=== PATIENT | female | born 1995 | race Caucasian/White ===

== ENCOUNTER 2017-03-31 12:38 | Emergency (ER) | payer MEDICAID ==
[~2017-03-31] VITALS: Ht 157.5 cm; Wt 86.6 kg
--- NOTE | 2017-03-31 13:09 | [facility] Report ---
History of Present Issue Date/Time Seen by Provider 03/31/17 1303 Visit Reason Pt arrived:Walked Presenting Problem:COUGH, SORE THROAT, TIRED Location if Accident: Onset of symptoms date/time:/ or onset unknown for:MEDICAL HX UNKNOWN Have you (or family members/close friends) recently traveled outside the [place]? N If Yes, where/when: Have you had exposure to infectious disease within the past month? TB? Other? Specify: Source patient, RN notes reviewed Exam Limitations no limitations Comment 21-year-old female presents today with a sore throat and coughing up green sputum. Was seen a few days ago by PCP and given a steroid and antibiotic injection but no oral antibiotics. Patient states she feels worse today than she did prior to seeing her PCP ALLERGIES Coded Allergies: PEANUT BUTTER (01/13/17) azithromycin (01/13/17) cinnamon (01/13/17) corn (01/13/17) garlic (01/13/17) onion (01/13/17) Home Medications Reported Medications Buspirone Hcl (Buspar 10MG) 10 MG PO TID History Medical History General CAD? No Angina: No SC: No Hypertension? No Hyperlipidemia? No CHF? No COPD? No Asthma? No Anemia? No Hernia? No Thyroid Problems? No Hypothyroidism? No CVA? No Seizures? No Diabetes? No UTI? No Stones? No GB Disease: Yes Nephritic Syndrome? No Asplenia? No Hepatitis? No Sickle Cell Disease? No Arthritis? No Cataracts? No Glaucoma? No MRSA? Yes TB? No Depression? Yes Cancer? No More? Yes Additional hx: LOWER BACK PAIN Immunization HX DT/Tetanus Unknown Flu Refused Pneumonia Refuses Surgical Hx Previous Surgery?Y Tonsils CHOLECYSTECTOMY WISDOM TEETH Family History Family HX Diabetes Yes CAD No Hypertension Yes Hyperlipidemia No Cancer No TB No Social History Smoking Hx Smoker: Current Every Day Smoker Tobacco: Yes Type Cigarettes Packs/day < 1 Pack Alcohol Alcohol: No Review of Systems All Other Systems Reviewed and Negative ENT see HPI, throat pain. Respiratory see HPI, cough Physical Exam Vital Signs Vital Signs Date Time Temp Pulse Resp B/P Pulse O2 O2 Flow FiO2 Ox Delivery Rate 03/31 1248 98.2 114 16 98 - WBC >12,000 or <4,000 or 10% bands? 2 or more SIRS Criteria Met? B/P: MAP: Creatinine >2.0? UA output<0.5ml/kg/hr for 2 hrs? Platelet count >100,000? Lactate >2.0mmol/1? INR >1.2 or PTT > than 60 sec? Evidence of Organ Dysfunction? Provider documented clinical suspician of infection? Sepsis Criteria Count: 1 Sepsis Risk: General Appearance normal appearance, no apparent distress Eye Exam - bilateral eye normal exam, bilateral eye PERRL, bilateral eye EOMI Ear, Nose, Throat hearing grossly normal, sinus pain/drainage, nasal congestion, pharyngeal erythema Neck normal inspection, full range of motion Respiratory Status Yes: trachea midline, chest symmetrical, non tender chest. No: respiratory distress. Lung Sounds anterior: lungs clear. posterior: lungs clear, wheezing. left: wheezing. right: lungs clear. Cardiovascular normal exam, regular rate/rhythm Peripheral Pulses Pulses normal No Gastrointestinal normal bowel sounds, non tender, soft Back normal inspection, no CVA tenderness, no vertebral tenderness Neurologic alert, normal exam, oriented x 3 Medical Decision Making LABS/Meds/Orders Pt receiving controlled substance in ED? No Departure Departure Time of Disposition 1305 Disposition DC Home or Self Care(routine) Clinical Impression Primary Impression: Acute bronchitis Qualifiers: Bronchitis organism: unspecified organism Qualified Code: J20.9 - Acute bronchitis, unspecified Condition STABLE Referrals Vipin ROY,Eder Le Patient Instructions Acute Bronchitis, DI for Acute Bronchitis Additional Instructions Follow-up with PCP if no improvement Tylenol Motrin as needed for pain or fever Medications as ordered Obtained from smoking Return or be seen in the ER symptoms worsen or do not improve Discharge Counseling Counseled pt/family regarding diagnosis, medications/RX, home care, follow up needs Prescriptions Current Visit Scripts Amoxicillin Trihydrate (Amoxicillin 500MG) 500 MG PO BID 10 Days at 1302
--- OUTSIDE RECORDS SUMMARY | 2017-04-11 18:15 | External Medical Summary Rpt ---
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 D BE 1 PH RT 50 AR B 0 MA MG CY CA 03 PS 93 UL 8 E # 03 93 TR 65 10 10 20 3 RI 90 GR Ac AM 16 -0 -0 .0 TE 24 AY ti AD 20 7- 7- 00 93 ve OL 61 20 20 AI RO -A 71 11 11 D BE CE 0 PH RT TA AR B OK MA NO CY PH N 03 37 93 .5 8 -3 # 25 03 93 MS 65 09 09 11 30 30 RI 89 FL Ac EN 16 -1 -1 .0 TE 87 OR ti AT 20 2- 3- 00 58 EN ve AL 66 20 20 AI CE [address] 0 PH SA US AR RA MA H TA CY L BL ET 03 93 8 # 03 93 MU 68 09 09 22 7 RI 89 FL Ac PI 46 -1 -1 .0 TE 87 OR ti RO 20 2- 3- 00 56 EN ve CI 18 20 20 AI CE N 02 11 11 D 2% 2 PH SA AR RA OI MA H NT CY L ME NT 03 93 8 # 03 93 TR 00 09 09 5 28 28 RI 89 FL Ac I- 55 -0 -0 .0 TE 75 OR ti SP 59 2- 2- 00 44 EN ve RI 01 20 20 AI CE NT 85 11 11 D EC 8 PH SA AR RA TA MA H BL CY L ET 03 93 8 # 03 93 NA 00 03 03 28 14 RI 87 FL Ac MS 09 -1 -1 .0 TE 43 OR ti OX 31 0- 0- 00 44 EN ve EN 00 20 20 AI CE [address] 1 PH SA AR RA 37 MA H 5 CY L MG 03 TA 93 BL 8 ET # 03 93 CY 00 03 03 14 14 RI 87 FL Ac CL 37 -1 -1 .0 TE 43 OR ti OB 80 0- 0- 00 43 EN ve EN 75 20 20 AI CE ZA 11 11 11 D MS 0 PH SA IN AR RA E MA H 10 CY L MG 03 93 TA 8 BL # ET 03 93 TR 45 01 01 1 80 20 RI 86 FL Ac IA 80 -2 -2 .0 TE 71 OR ti MC 20 0- 0- 00 49 EN ve IN 06 20 20 AI CE OL 43 11 11 D ON 6 PH SA E AR RA 0. MA H 1% CY L CR 03 EA 93 M 8 # 03 93 00 01 01 5 30 30 RI 86 FL Ac 95 -2 -2 .0 TE 71 OR ti 51 0- 0- 00 47 EN ve 02 20 20 AI CE 59 11 11 D 0 PH SA AR RA MA H CY L 03 93 8 # 03 93 MS 37 08 01 5 28 28 RI 84 BE Ac IL 00 -2 -1 .0 TE 69 SS ti OS 00 4- 7- 00 05 ON ve EC 45 20 20 AI [address] OT 3 PH EP C AR HE 20 MA N .6 CY A MG 03 93 TA 8 BL # ET 03 93 LO 00 08 01 5 30 30 RI 84 BE Ac RA 78 -2 -1 .0 TE 65 SS ti TA 15 3- 7- 00 92 ON ve DI 07 20 20 AI NE [address] 1 PH EP 10 AR HE MA N MG CY A TA 03 BL 93 ET 8 # 03 93 MS 37 08 12 5 28 28 RI 84 BE Ac IL 00 -2 -0 .0 TE 69 SS ti OS 00 4- 7- 00 05 ON ve EC 45 20 20 AI [address] OT 3 PH EP C AR HE 20 MA N .6 CY A MG 03 93 TA 8 BL # ET 03 93 LO 00 08 12 5 30 30 RI 84 BE Ac RA 78 -2 -0 .0 TE 65 SS ti TA 15 3- 7- 00 92 ON ve DI 07 20 20 AI NE [address] 1 PH EP 10 AR HE MA N MG CY A TA 03 BL 93 ET 8 # 03 93 LO 00 08 11 5 30 30 RI 84 BE Ac RA 78 -2 -0 .0 TE 65 SS ti TA 15 3- 2- 00 92 ON ve DI 07 20 20 AI NE [address] 1 PH EP 10 AR HE MA N MG CY A TA 03 BL 93 ET 8 # 03 93 00 10 10 21 7 RI 85 GA Ac 14 -1 -1 .0 TE 46 IN ti 39 8- 9- 00 28 EY ve 89 20 20 AI 80 10 10 D OK 1 PH CH AR AE MA L CY S 03 93 8 # 03 93 MS 37 08 10 5 28 28 RI 84 BE Ac IL 00 -2 -1 .0 TE 69 SS ti OS 00 4- 9- 00 05 ON ve EC 45 20 20 AI [address] OT 3 PH EP C AR HE 20 MA N .6 CY A MG 03 93 TA 8 BL # ET 03 93 MS 37 08 09 5 28 28 RI 84 BE Ac IL 00 -2 -2 .0 TE 69 SS ti OS 00 4- 0- 00 05 ON ve EC 45 20 20 AI [address] OT 3 PH EP C AR HE 20 MA N .6 CY A MG 03 93 TA 8 BL # ET 03 93 LO 00 08 09 5 30 30 RI 84 BE Ac RA 78 -2 -2 .0 TE 65 SS ti TA 15 3- 0- 00 92 ON ve DI 07 20 20 AI NE [address] 1 PH EP 10 AR HE MA N MG CY A TA 03 BL 93 ET 8 # 03 93 MS 37 08 08 5 28 28 RI 84 BE Ac IL 00 -2 -2 .0 TE 69 SS ti OS 00 4- 4- 00 05 ON ve EC 45 20 20 AI [address] OT 3 PH EP C AR HE 20 MA N .6 CY A MG 03 93 TA 8 BL # ET 03 93 LO 00 08 08 5 30 30 RI 84 BE Ac RA 78 -2 -2 .0 TE 65 SS ti TA 15 3- 3- 00 92 ON ve DI 07 20 20 AI NE [address] 1 PH EP 10 AR HE MA N MG CY A TA 03 BL 93 ET 8 # 03 93 LO 00 05 07 2 30 30 RI 83 BE Ac RA 78 -2 -2 .0 TE 58 SS ti TA 15 8- 3- 00 75 ON ve DI 07 20 20 AI NE [address] 1 PH EP 10 AR HE MA N MG CY A TA 03 BL 93 ET 8 # 03 93 LO 00 05 06 2 30 30 RI 83 BE Ac RA 78 -2 -2 .0 TE 58 SS ti TA 15 8- 3- 00 75 ON ve DI 07 20 20 AI NE [address] 1 PH EP 10 AR HE MA N MG CY A TA 03 BL 93 ET 8 # 03 93 TR 45 05 06 2 80 15 RI 83 MC Ac IA 80 -0 -1 .0 TE 29 KE ti MC 20 7- 2- 00 82 OK ve IN 06 20 20 AI E OL 43 10 10 D JR ON 6 PH E AR WI 0. MA LL 1% CY IA M CR 03 F EA 93 M 8 # 03 93 LO 00 05 05 2 30 30 RI 83 BE Ac RA 78 -2 -2 .0 TE 58 SS ti TA 15 8- 8- 00 75 ON ve DI 07 20 20 AI NE [address] 1 PH EP 10 AR HE MA N MG CY A TA 03 BL 93 ET 8 # 03 93 CE 00 05 05 20 10 RI 83 BE Ac FD 78 -2 -2 .0 TE 58 SS ti IN 12 8 8 00 73 ON ve IR 17 20 20 AI [address] 30 0 PH EP 0 AR HE MG MA N CY A CA PS 03 UL 93 E 8 # 03 93 MS 37 05 05 28 28 RI 83 BE Ac IL 00 -2 -2 .0 TE 58 SS ti OS 00 8 8 00 71 ON ve EC 45 20 20 AI [address] OT 3 PH EP C AR HE 20 MA N .6 CY A MG 03 93 TA 8 BL # ET 03 93 TR 45 05 05 2 80 15 RI 83 MC Ac IA 80 -0 -0 .0 TE 29 KE ti MC 20 7- 7- 00 82 OK ve IN 06 20 20 AI E OL 43 10 10 D JR ON 6 PH E AR WI 0. MA LL 1% CY IA M CR 03 F EA 93 M 8 # 03 93 PE 45 05 05 60 5 RI 83 MC Ac RM 80 -0 -0 .0 TE 29 KE ti ET 20 7- 7- 00 83 OK ve HR 26 20 20 AI E IN 93 10 10 D JR 7 PH 5% AR WI MA LL CR CY IA EA M M 03 F 93 8 # 03 93 LO 00 03 05 3 30 30 RI 82 BE Ac RA 78 -3 -0 .0 TE 77 SS ti TA 15 0- 7- 00 44 ON ve DI 07 20 20 AI NE [address] 1 PH EP 10 AR HE MA N MG CY A TA 03 BL 93 ET 8 # 03 93 66 04 04 12 12 RI 83 HU Ac 99 -1 -1 0. TE 04 NT ti 20 9- 9 00 68 ER ve 22 20 20 0 AI 00 10 10 D NA 4 PH NC AR Y MA C CY 03 93 8 # 03 93 AM 00 04 04 30 10 RI 83 HU Ac OX 09 -1 -1 .0 TE 04 NT ti -C 32 9- 9- 00 67 ER ve LA 27 20 20 AI V 43 10 10 D NA 50 4 PH NC 0- AR Y 12 MA C 5 CY MG 03 TA 93 BL 8 ET # 03 93 LO 00 03 03 3 30 30 RI 82 BE Ac RA 78 -3 -3 .0 TE 77 SS ti TA 15 0- 0- 00 44 ON ve DI 07 20 20 AI NE [address] 1 PH EP 10 AR HE MA N MG CY A TA 03 BL 93 ET 8 # 03 93 00 06 12 02 10 12 RI 79 CO Ac 90 -2 -3 0. TE 15 MM ti 42 9- 1- 00 39 UN ve 03 20 20 0 AI IT 55 09 09 D Y 9 PH AL AR LE M RG #3 Y 93 & 8 TH MA PS C CE 65 10 10 00 20 10 RI 80 MC Ac FU 86 -1 -2 .0 TE 43 KE ti RO 20 5- 2- 00 55 OK ve XI 03 20 20 AI E ME 42 09 09 D JR 0 PH AX AR WI ET M LL IL #3 IA 93 M 25 8 F 0 MG TA B 00 06 10 01 10 12 RI 79 CO Ac 90 -2 -0 0. TE 15 MM ti 42 9- 8- 00 39 UN ve 03 20 20 0 AI IT 55 09 09 D Y 9 PH AL AR LE M RG #3 Y 93 & 8 TH MA PS C LO 00 08 10 00 30 30 RI 79 CO Ac RA 78 -0 -0 .0 TE 45 MM ti TA 15 4- 8- 00 06 UN ve DI 07 20 20 AI IT NE 70 09 09 D Y 1 PH AL 10 AR LE M RG MG #3 Y 93 & TA 8 BL TH ET MA PS C 00 06 08 00 10 12 RI 79 CO Ac 90 -2 -1 0. TE 15 MM ti 42 9- 3- 00 39 UN ve 03 20 20 0 AI IT 55 09 09 D Y 9 PH AL AR LE M RG #3 Y 93 & 8 TH MA PS C 00 08 08 00 20 5 RI 79 LA Ac 60 -0 -1 0. TE 45 WS ti 31 6- 3- 00 95 ON ve 29 20 20 0 AI 55 [address] AR OR M G #3 93 8 LO 00 04 08 02 30 30 RI 78 CO Ac RA 78 -2 -1 .0 TE 20 MM ti TA 15 9- 3- 00 82 UN ve DI 07 20 20 AI IT NE 70 09 09 D Y 1 PH AL 10 AR LE M RG MG #3 Y 93 & TA 8 BL TH ET MA PS C 00 07 07 00 30 10 RI 79 LA Ac 14 -2 -3 .0 TE 25 WS ti 39 0- 0- 00 68 ON ve 89 20 20 AI 80 [address] AR OR M G #3 93 8 00 06 07 00 10 12 RI 78 CO Ac 90 -2 -1 0. TE 99 MM ti 42 9- 6- 00 93 UN ve 03 20 20 0 AI IT 55 09 09 D Y 9 PH AL AR LE M RG #3 Y 93 & 8 MA PS C LO 00 04 07 01 30 30 RI 78 CO Ac RA 78 -2 -0 .0 TE 20 MM ti TA 15 9- 2- 00 82 UN ve DI 07 20 20 AI IT NE 70 09 09 D Y 1 PH AL 10 AR LE M RG MG #3 Y 93 & TA 8 BL TH ET MA PS C CE 65 06 07 00 14 7 RI 78 MA Ac FP 86 -1 -0 .0 TE 86 RT ti RO 20 7- 2- 00 79 IN ve ZI 06 20 20 AI J L 80 09 09 D 25 1 PH MA 0 AR NG MG M AN #3 TA 93 MD BL 8 ET PS C 65 08 06 06 10 12 RI 74 CO Ac 16 -1 -0 0. TE 60 MM ti 20 9- 4- 00 03 UN ve 51 20 20 0 AI IT 61 08 09 D Y 0 PH AL AR LE M RG #3 Y 93 & 8 TH MA PS C LO 00 04 05 00 30 30 RI 78 CO Ac RA 78 -2 -0 .0 TE 20 MM ti TA 15 9- 7- 00 82 UN ve DI 07 20 20 AI IT NE 70 09 09 D Y 1 PH AL 10 AR LE M RG MG #3 Y 93 & TA 8 BL TH ET MA PS C 65 08 04 05 10 12 RI 74 CO Ac 16 -1 -0 0. TE 60 MM ti 20 9- 9- 00 03 UN ve 51 20 20 0 AI IT 61 08 09 D Y 0 PH AL AR LE M RG #3 Y 93 & 8 TH MA PS C MS 00 03 03 00 12 4 RI 77 MU Ac OM 60 -1 -2 0. TE 54 LL ti ET 31 5- 6- 00 04 IN ve LEAHY 58 20 20 0 AI S ZI 85 09 09 D ZAKI NE 8 PH HN AR M VC M -C #3 OD 93 EI 8 NE SY RU P 65 08 03 04 10 12 RI 74 CO Ac 16 -1 -1 0. TE 60 MM ti 20 9- 2- 00 03 UN ve 51 20 20 0 AI IT 61 08 09 D Y 0 PH AL AR LE M RG #3 Y 93 & 8 TH MA PS C LO 00 08 03 06 30 30 RI 74 CO Ac RA 78 -1 -1 .0 TE 60 MM ti TA 15 9- 2- 00 02 UN ve DI 07 20 20 AI IT NE 70 08 09 D Y 1 PH AL 10 AR LE M RG MG #3 Y 93 & TA 8 BL TH ET MA PS C 65 08 01 03 10 12 RI 74 CO Ac 16 -1 -3 0. TE 60 MM ti 20 9- 0- 00 03 UN ve 51 20 20 0 AI IT 61 08 09 D Y 0 PH AL AR LE M RG #3 Y 93 & 8 TH MA PS C LO 00 08 01 05 30 30 RI 74 CO Ac RA 78 -1 -3 .0 TE 60 MM ti TA 15 9- 0- 00 02 UN ve DI 07 20 20 AI IT NE 70 08 09 D Y 1 PH AL 10 AR LE M RG MG #3 Y 93 & TA 8 BL TH ET MA PS C CE 00 01 01 00 21 7 RI 76 GA Ac PH 09 -1 -3 .0 TE 67 IN ti AL 33 4- 0- 00 58 EY ve EX 14 20 20 AI IN 50 09 09 D OK 1 PH CH 25 AR AE 0 M L MG #3 S 93 CA 8 PS UL E LO 00 08 01 04 30 30 RI 74 CO Ac RA 78 -1 -0 .0 TE 60 MM ti TA 15 9- 1- 00 02 UN ve DI 07 20 20 AI IT NE 70 08 09 D Y 1 PH AL 10 AR LE M RG MG #3 Y 93 & TA 8 BL TH ET MA PS C LO 00 08 12 03 30 30 RI 74 CO Ac RA 78 -1 -0 .0 TE 60 MM ti TA 15 9- 4- 00 02 UN ve DI 07 20 20 AI IT NE 70 08 08 D Y 1 PH AL 10 AR LE M RG MG #3 Y 93 & TA 8 BL TH ET MA PS C 65 08 12 02 10 12 RI 74 CO Ac 16 -1 -0 0. TE 60 MM ti 20 9- 4- 00 03 UN ve 51 20 20 0 AI IT 61 08 08 D Y 0 PH AL AR LE M RG #3 Y 93 & 8 TH MA PS C 00 10 10 00 10 2 RI 75 WI Ac 40 -1 -2 .0 TE 34 CK ti 60 0- 3- 00 92 ER ve 35 20 20 AI 70 08 08 D JE 5 PH FF AR RE M Y #3 93 8 LO 00 08 10 02 30 30 RI 74 CO Ac RA 78 -1 -2 .0 TE 60 MM ti TA 15 9- 3- 00 02 UN ve DI 07 20 20 AI IT NE 70 08 08 D Y 1 PH AL 10 AR LE M RG MG #3 Y 93 & TA 8 BL TH ET MA PS C 65 08 09 01 10 12 RI 74 CO Ac 16 -1 -2 0. TE 60 MM ti 20 9- 6- 00 03 UN ve 51 20 20 0 AI IT 61 08 08 D Y 0 PH AL AR LE M RG #3 Y 93 & 8 MA PS C LO 00 08 09 01 30 30 RI 74 CO Ac RA 78 -1 -2 .0 TE 60 MM ti TA 15 9- 6- 00 02 UN ve DI 07 20 20 AI IT NE 70 08 08 D Y 1 PH AL 10 AR LE M RG MG #3 Y 93 & TA 8 BL TH ET MA PS C LO 00 08 08 00 30 30 RI 74 CO Ac RA 78 -1 -2 .0 TE 60 MM ti TA 15 9- 8- 00 02 UN ve DI 07 20 20 AI IT NE 70 08 08 D Y 1 PH AL 10 AR LE M RG MG #3 Y 93 & TA 8 BL TH ET MA PS C 65 08 08 00 10 12 RI 74 CO Ac 16 -1 -2 0. TE 60 MM ti 20 9- 8- 00 03 UN ve 51 20 20 0 AI IT 61 08 08 D Y 0 PH AL AR LE M RG #3 Y 93 & 8 MA PS C 60 02 03 00 12 5 RI 72 No Ac 25 -1 -2 0. TE 02 t ti 80 5- 6- 00 14 Av ve 23 20 20 0 AI ai 91 08 08 D la 6 PH bl AR e M #3 93 8 TA 00 02 03 00 10 5 RI 72 No Ac OK 00 -1 -2 .0 TE 02 t ti FL 40 5- 6- 00 11 Av ve U 80 20 20 AI ai 75 08 08 08 D la 5 PH bl MG AR e M CA #3 PS 93 UL 8 E Immunization Name Date Rout CVX Reac Dose Comm Prov Is Faci e tion ent ider Refu lity Give sed n MPSV 07-3 32 HARINDER No DHS/ 4 0-20 ONEYDA CO VACC 08 CO HEAL INE HEAL TH GROU TH CENT PS CENT RAL ACYW ER BANK -135 ACCT SUBQ USE Vital Signs 08-06-2013 00:51 Name Value Interpretat Reference Comment ion Range BP 75 mm[Hg] Diastolic BP Systolic 145 mm[Hg] Heart 85 /min Rate/Pulse O2% 100 % Respiratory 20 /min Rate 08-05-2013 23:52 Name Value Interpretat Reference Comment ion Range O2% 100 % Respiratory 20 /min Rate 08-05-2013 23:51 Name Value Interpretat Reference Comment ion Range BP 92 mm[Hg] Diastolic BP Systolic 149 mm[Hg] Heart 90 /min Rate/Pulse 07-28-2013 02:53 Name Value Interpretat Reference Comment ion Range BP 80 mm[Hg] Diastolic BP Systolic 120 mm[Hg] Heart 91 /min Rate/Pulse O2% 98 % Respiratory 20 /min Rate 07-28-2013 01:56 Name Value Interpretat Reference Comment ion Range BP 73 mm[Hg] Diastolic BP Systolic 132 mm[Hg] Heart 88 /min Rate/Pulse O2% 97 % Respiratory 20 /min Rate 10-05-2012 19:02 Name Value Interpretat Reference Comment ion Range Body 98.7 [degF] Temperature BP 52 mm[Hg] Diastolic BP Systolic 95 mm[Hg] Heart 99 /min Rate/Pulse O2% 98 % Respiratory 17 /min Rate 10-05-2012 19:01 Name Value Interpretat Reference Comment ion Range Body 98.7 [degF] Temperature BP 52 mm[Hg] Diastolic BP Systolic 95 mm[Hg] Heart 99 /min Rate/Pulse O2% 98 % Respiratory 17 /min Rate Results Labs Lab Lab Date Result Refere Interp Status Commen Order Detail nces retati t Range on Hemoglobin A1c in Blood (01-19-2017 09:25) Hemoglo 5.5 % 0.0% Normal complet bin A1c 017 - ed in 09:25 7.0% Blood Urinalysis dipstick W Reflex Microscopic panel in Urine (01-13-2017 00:16) Appeara CLEAR CLEAR complet nce of 017 ed Urine 00:16 Bilirub NEGATIV NEG complet in 017 E ed [Presen 00:16 ce] in Urine by Test strip Erythro NEGATIV NEG complet cytes 017 E ed [Presen 00:16 ce] in Urine Color YELLOW YELLOW complet of 017 ed Urine 00:16 Ketones NEGATIV NEG complet 017 E ed [Presen 00:16 ce] in Urine by Automat ed test strip Mucus NEGATIV NEG complet [Presen 017 E ed ce] in 00:16 Urine sedimen t by Light microsc opy Mucus 3+ OCC complet [Presen 017 ed ce] in 00:16 Urine sedimen t by Light microsc opy Nitrite NEGATIV NEG complet 017 E ed [Presen 00:16 ce] in Urine by Test strip Epithel 10-20 0#/hp complet ial 017 f - ed cells.s 00:16 5#/hp quamous f [Presen ce] in Urine sedimen t by Microsc opy high power field Urobili 0.2 NEG complet nogen 017 ed [Presen 00:16 ce] in Urine by Test strip Leukocy 10-20 O complet darlene 017 wbc/hpf ed [#/volu 00:16 me] in Urine CHLAMYDIA AND GONORRHEA TESTING (09-11-2016 10:00) Chlamyd NEGATIV complet ia 017 E ed trachom 10:00 atis rRNA [Presen ce] in Unspeci fied specime n by Probe & target amplifi cation method Neisser NEGATIV complet ia 017 E ed gonorrh 10:00 oeae rRNA [Presen ce] in Unspeci fied specime n by Probe & target amplifi cation method CHLAMYDIA AND GONORRHEA TESTING (09-11-2016 10:00) COLLECT AH/GENP complet OR 017 ROBE ed 10:00 ETHNICI WHITE, complet TY 017 NON-HIS ed 10:00 PANIC KIT 05-31-2 complet EXPIRAT 017 017 ed ION 10:00 DATE SYMPTOM NO complet S 017 ed 10:00 REASON INITIAL complet FOR 017 FAMILY ed REQUEST 10:00 PLANNIN G VISIT SPECIME URINE complet N 017 ed SOURCE 10:00 PREGNAN NO complet T 017 ed 10:00 CHART N/A complet NUMBER 017 ed 10:00 Chlamyd Pending complet ia ed trachom 10:00 atis rRNA [Presen ce] in Unspeci fied specime n by Probe & target amplifi cation method Neisser Pending complet ia 017 ed gonorrh 10:00 oeae rRNA [Presen ce] in Unspeci fied specime n by Probe & target amplifi cation method COMPREHENSIVE METABOLIC PANEL (08-05-2013 23:04) Glucose 100 74-106 complet 014 mg/dL ed Bld-mCn 23:04 c BUN 10 7-18 complet Bld-mCn 014 mg/dL ed c 23:04 Creat 0.8 0.6-1.0 complet SerPl-m 014 mg/dL ed Cnc 23:04 Creat 137 50-200 complet Cl 014 ML/MIN ed predict 23:04 ed SerPl C-G-vRa te Sodium 140 136-145 complet SerPl-s 014 mmoL/L ed Cnc 23:04 Potassi 3.6 3.5-5.1 complet um 014 mmoL/L ed SerPl-s 23:04 Cnc Chlorid 102 98-107 complet e 014 mmoL/L ed SerPl-s 23:04 Cnc CO2 29 21.0-32 complet SerPl-s 014 mmoL/L .0 ed Cnc 23:04 Calcium 9.1 8.5-10. complet 014 mg/dL 1 ed SerPl-m 23:04 Cnc Prot 8.4 6.4-8.2 complet SerPl-m 014 gm/dL ed Cnc 23:04 Albumin 02--2 4.2 3.4-5.0 complet 014 gm/dL ed SerPl-m 23:04 Cnc Globuli 02-2 4.2 1.3-3.2 complet n 014 gm/dL ed Ser-mCn 23:04 c Albumin 08-05-2 1.0 UNK 1.1-1.8 complet /Glob 014 ed SerPl-m 23:04 Rto Bilirub 08-05-2 0.3 0.2-1.0 complet 014 mg/dL ed SerPl-m 23:04 Cnc AST 02-2 17 U/L 15-37 complet SerPl-c 014 ed Cnc 23:04 ALT 08-05-2 23 U/L 12-78 complet SerPl-c 014 ed Cnc 23:04 ALP --2 124 U/L 50-136 complet SerPl-c 014 ed Cnc 23:04 CBC with AUTO DIFF (08-05-2013 23:04) WBC # 02-04-2 8.4 4.5-13. complet Bld 014 K/mm3 0 ed Auto 23:04 RBC # 02-2 4.76 4.2-5.4 complet Bld 014 M/mm3 ed Auto 23:04 Hgb 08-05-2 15.2 12.2-16 complet Bld-mCn 014 g/dL .2 ed c 23:04 Hct Fr 08-05- 45.3 % 37.0-47 complet Bld 014 .0 ed 23:04 MCV RBC 08-05-2 95.2 fL 82.2-97 complet 014 .8 ed 23:04 MCH RBC 08-05-2 31.9 pg 27-31.2 complet Qn 014 ed Auto 23:04 MEAN 08-05-2 33.6 31.8-35 complet CORPUSC 014 g/dl .4 ed ULAR 23:04 HGB CONC RDW RBC 04-2 13.7 % 11.5-17 complet Auto 014 .5 ed 23:04 Platele 08-05-2 269 142-424 complet t Bld 014 K/mm3 ed Ql 23:04 Manual Granulo 08-05- 71.4 % 37.0-80 complet cytes 014 .0 ed Fr Bld 23:04 Auto LYMPH % 08-05-2 25.4 % 10-50 complet 014 ed 23:04 Monocyt 3.2 % complet es Fr 014 ed Bld 23:04 Auto Granulo 6.0 1.8-7.8 complet cytes # 014 K/mm3 ed Bld 23:04 Auto Lymphoc 2.1 0.7-4.5 complet ytes Fr 014 K/mm3 ed Bld 23:04 Auto Monocyt 0.3 0.1-1.0 complet es # 014 K/mm3 ed Bld 23:04 Auto B-HCG SerPl Ql (08-05-2013 23:04) B-HCG NEGATIV NEG complet SerPl 014 E ed Ql 23:04 B-HCG Ur Ql (07-28-2013 01:40) B-HCG NEGATIV NEG complet Ur Ql 014 E ed 01:40 URINALYSIS/COMPLETE (07-28-2013 01:40) URINE YELLOW YELLOW complet COLOR 014 ed 01:40 URINE CLEAR CLEAR complet APPEARA 014 ed NCE 01:40 URINE NEGATIV NEG complet GLUCOSE 014 E ed - 01:40 DIPSTIC K URINE NEGATIV NEG complet BILIRUB 014 E ed IN - 01:40 DIPSTIC K URINE NEGATIV NEG complet KETONE 014 E mg/dL ed 01:40 URINE 1.020 1.005-1 complet SPECIFI 014 UNK .030 ed C 01:40 GRAVITY URINE NEGATIV NEG complet BLOOD 014 E ed 01:40 URINE 6.5 UNK 5.0-8.5 complet PH 014 ed 01:40 URINE NEGATIV NEG complet PROTEIN 014 E mg/dL ed - 01:40 DIPSTIC K URINE 0.2 NEG complet UROBILI 014 E.U./dL ed NOGEN - 01:40 DIPSTIC K URINE NEGATIV NEG complet NITRATE 014 E ed - 01:40 DIPSTIC K URINE NEGATIV NEG complet LEUK 014 E ed ESTERAS 01:40 E URINE 10-20 0-5 ranjit JACKSON 014 #/hpf ed S CELLS 01:40 Procedures Procedure DOS Code Location Performer Comment SLEEP STD 21610 RAFIIRAIDA [facility] H[facility] INC RATE&O[place] [address] [facility]YROID [facility] STIMULATI [place] [address] [facility] M[facility] THYROXINE [facility] TOTAL INC INC HEMOGLOBI 99242 [facility] N [facility] GLYCOSYLA INC INC KRISTINA A1C BLOOD 72452 [facility] COUNT [facility] COMPLETE INC INC AUTO&AUTO DIFRNTL WBC HEPATITIS 61612 [facility] B CORE [facility] [place] [address] [facility] HEPATITIS [facility] B INC INC SURFACE ANTIGEN LIPID 09412 [facility] PANEL [facility] INC INC HEPATITIS 16941 [facility] C [facility] ANTIBODY INC INC COLLECTIO 75279 [facility] M[facility] N VENOUS 7 [facility] BLOOD INC INC VENIPUNCT URE COMPREHEN 92961 [facility] SIVE [facility] METABOLIC INC INC PANEL HEPATITIS 43799 [facility] A [facility] ANTIBODY INC INC HAAB URNLS DIP 12016 [facility] STICK/TAB INC INC LET REAGENT AUTO MICROSCOP Y URINE 23915 [facility] TEST INC INC VISUAL COLOR CMPRSN METHS CULTURE 82639 [facility] BACTERIAL [facility] INC INC QUANTTATI VE COLONY COUNT URINE IAADIADOO 22752 CORINE [facility] 7 N URGENT STREPTOCO CARE CCUS GROUP A URINE [id number] [facility] VISUAL DIGNA DIGNA COLOR CMPRSN METHS INJECTION J1050 [facility] DE[facility] DEPT OGESTERON DIGNA DIGNA E ACETATE 1 MG CONTRACEP [id number] [facility] SUPPLY [facility] DE[facility] DEPT CONDOM DIGNA DIGNA MALE EACH CONTRACEP A4269 [facility] SU[facility] DEPT SPERMICID DIGNA DIGNA E EACH OPHTH 34645 SCIFRES SCIFRES MEDICAL 7 XM&EVAL COMPRHNSV ESTAB PT 1/> FITTING [id number] SCIFRES SCIFRES SPECTACLE 7 S XCPT APHAKIA MONOFOCAL 1 VISN V2103 SCIFRES SCIFRES PLANO 7 TO+/-4.00 D SPHER 0.12-2.00 D CYL EA SCRATCH V2760 SCIFRES SCIFRES RESISTANT 7 COATING PER LENS FRAMES V2020 SCIFRES SCIFRES PURCHASES 7 LENS V2784 SCIFRES SCIFRES POLYCARBO 7 MIREYA OR EQUAL ANY INDEX PER LENS URINE 07241 [facility] 6 PHYSICIAN TEST S GROUP VISUAL COLOR CMPRSN METHS THERAPEUT 16335 [facility] IC 6 PHYSICIAN PROPHYLAC S GROUP TIC/DX INJECTION SUBQ/IM URINE 83099 [facility] 6 N N TEST COMMUNTIY COMMUNTIY VISUAL HOSPITA HOSPITA COLOR CMPRSN METHS COMPREHEN 48939 [facility] SIVE 6 N N METABOLIC COMMUNTIY COMMUNTIY PANEL HOSPITA HOSPITA BLOOD 96950 [facility] COUNT 6 N N COMPLETE COMMUNTIY COMMUNTIY AUTO&AUTO HOSPITA HOSPITA DIFRNTL WBC IAADIADOO 46914 [facility] MELONIE 6 N URGENT ABD STREPTOCO CARE CCUS GROUP A IAADIADOO 58621 [facility] 6 N N STREPTOCO COMMUNTIY COMMUNTIY CCUS HOSPITA HOSPITA GROUP A CUL BACT 58414 [facility] XCPT 6 N N URINE COMMUNTIY COMMUNTIY BLOOD/STO HOSPITA HOSPITA OL AEROBIC ISOL MRI 07105 [facility] CANAL ORTHOPAED LUMBAR ICS PSC W/[place] [address] [facility] HEAD/BRAI 6 N N N W/O COMMUNTIY COMMUNTIY CONTRAST HOSPITA HOSPITA MATERIAL GLUC BLD 47819 [facility] GLUC MNTR 6 N N DEV COMMUNTIY COMMUNTIY CLEARED HOSPITA HOSPITA FDA SPEC HOME USE ECG 19291 [facility] ROUTINE 6 N N ECG COMMUNTIY COMMUNTIY W/LEAST HOSPITA HOSPITA 12 LDS TRCG ONLY W/O I&R RADEX 80297 [facility] [place] [facility] SPINE 6 RADIOLOGY LUMBOSACR AL 2/3 VIEWS URINE 51776 [facility] 6 N N TEST COMMUNTIY COMMUNTIY VISUAL HOSPITA HOSPITA COLOR CMPRSN METHS INJECTION J1885 [facility] 6 N N KETOROLAC COMMUNTIY COMMUNTIY HOSPITA HOSPITA TROMETHAM INE PER 15 MG URNLS DIP 52501 [facility] 6 N N STICK/TAB COMMUNTIY COMMUNTIY LET HOSPITA HOSPITA REAGENT AUTO MICROSCOP Y THERAPEUT 17212 [facility] IC 6 N N PROPHYLAC COMMUNTIY COMMUNTIY TIC/DX HOSPITA HOSPITA INJECTION SUBQ/IM URNLS DIP 27827 [facility] 6 N N STICK/TAB COMMUNTIY COMMUNTIY LET HOSPITA HOSPITA REAGENT AUTO MICROSCOP Y URINE 65772 [facility] 6 N N TEST COMMUNTIY COMMUNTIY VISUAL HOSPITA HOSPITA COLOR CMPRSN METHS THERAPEUT 02622 [facility] IC 5 PHYSICIAN FEDER[place] PROPHYLAC S GROUP TIC/DX INJECTION SUBQ/IM DELIVERY [id number] RAFI MCKEE PRODUCTS 5 [facility] INC INC CONCEPTIO N EXTERNAL NEURAXIAL 95975 [facility] 5 ANESTH PHOEBE ANALG/ANE OF THE S PLND BLUE VAGINAL DELIVERY VAGINAL 79567 RUSS RAMIREZ DELIVERY 5 ASHLEY ROY ROBBIN ONLY W/POSTPAR GREGORIO CARE 39286 RUSS RAMIREZ NONSTRESS 5 ASHLEY ROY ROBBIN TEST PARTICLE 35485 [facility] AGGLUTINA 5 [facility] TION INC INC SCREEN EACH ANTIBODY 10440 [facility] BIOPHYSIC 5 PHYSICIAN FEDERICO AL S GROUP PROFILE W/O NON-STRES S TESTING US PREG 77845 [facility] ANDRADE UTERUS 5 PHYSICIAN FEDERICO REAL TIME S GROUP F/U TRNSABDL PER FETUS DOPPLER 87148 [facility] LUPE VELOCIMET 5 PHYSICIAN FEDERICO RY S GROUP UMBILICAL ARTERY 76678 [facility] NONSTRESS 5 [facility] TEST INC INC URNLS DIP 91473 [facility] M[facility]EE [facility] STICK/TAB INC INC LET REAGENT AUTO MICROSCOP Y URNLS DIP 11377 [facility] M[facility]EE 5 [facility] STICK/TAB INC INC LET REAGENT AUTO MICROSCOP Y 05970 [facility] M[facility] NONSTRESS 5 [facility] TEST INC INC FTL 93906 [facility] M[facility] FIBRONECT 5 [facility] IN INC INC CERVICOVA G SECRETION S SEMI-MARITZA 38606 [facility] LUPE NONSTRESS 5 PHYSICIAN FEDERICO TEST S GROUP GLUCOSE 64345 [facility] POST 5 PHYSICIAN PHYSICIAN GLUCOSE S GROUP S GROUP DOSE 08576 RUSS RAMIREZ NONSTRESS 5 ASHLEY ROY ROBBIN TEST EVAL C/V 88734 [facility] AMNIOTIC 5 [facility] FLUID INC INC PROTEIN QUAL EA SPECIMEN URNLS DIP 37207 [facility] M[facility]EE 5 [facility] STICK/TAB INC INC LET REAGENT AUTO MICROSCOP Y URNLS DIP 18046 [facility] M[facility]EE 5 [facility] STICK/TAB INC INC LET REAGENT AUTO MICROSCOP Y 96065 RUSS RAMIREZ NONSTRESS 5 ASHLEY ROY ROBBIN TEST GLUC BLD 36881 [facility] M[facility]EE GLUC MNTR 5 [facility] DEV INC INC CLEARED FDA SPEC HOME USE US PREG 48612 [facility] UTERUS 5 MEDICAL TITUS AFTER 1ST IMAGING TRIMEST ASS GESTATION COLLECTIO 46901 RAFI RAFI N VENOUS 5 [facility] [place] [address] RAFI CMKEE ESTRIOL 5 [facility] INC INC ALPHA-FET 50096 [facility] M[facility] OPROTEIN 5 [facility] SERUM INC INC GONADOTRO 77161 [facility] M[facility] PIN 5 [facility] CHORIONIC INC INC QUANTITAT DIAMOND RADIOLOGI 35548 [place] BE[place] C 5 MEDICAL ARMOND EXAMINATI IMAGING ON CHEST ASS SINGLE VIEW FRONTAL CULTURE 96098 COMBINED COMBINED BACTERIAL 5 PHYSICIAN PHYSICIAN S LA S LA QUANTTATI VE COLONY COUNT UR[place] PREG 16693 [facility] ANDRADE UTERUS 5 PHYSICIAN FEDERICO REAL TIME S GROUP W/IMAGE DCMTN TRANSVAG IAADI 80247 [facility] INFFLUENZ 5 [facility] A A VIRUS INC INC IAADI 90232 RA[facility] MCKEE INFLUENZA 5 [facility] B VIRUS INC INC CUL BACT 38667 [facility] XCPT 5 [facility] URINE INC INC BLOOD/[place] [address] [facility] M[facility]EE STREPTOCO 5 [facility] CCUS INC INC GROUP A COLLECTIO 49720 [facility] MCKEE N VENOUS 5 [facility] [place] [address] RAFI MCKEE INSULIN 5 [facility] [place] [address] RAFI MCKEE C-PEPTIDE 5 [facility] INC INC CORTISOL 60679 [facility]CKEE TOTAL 5 [facility] INC INC BLOOD 45610 [facility] M[facility] COUNT 5 [facility] COMPLETE INC INC AUTO&AUTO DIFRNTL WBC CYANOCOBA 84352 [facility] M[facility]EE SUELLEN 5 [facility] VITAMIN [place] B-12 [place] [address] RAFI RAFI FREE 5 [facility] [place] [address] RAFI MCKEE THYROID 5 [facility] STIMULATI INC INC NG HORMONE TSH HEMOGLOBI 33997 [facility] MCKEE N 5 [facility] GLYCOSYLA INC INC KRISTINA A1C COLLECTIO 15351 [facility] M[facility]EE N VENOUS 5 [facility] BLOOD INC INC VENIPUNCT URE LIPID 62378 RAFI RAFI PANEL 5 [facility] INC INC COMPREHEN 07449 [facility] M[facility] SIVE 5 [facility] METABOLIC INC INC PANEL SPHERE V2100 YOGHASSAN YO CHRISTIN SINGLE 5 VISION PLANO +/- 4.00 PER LENS LENS V2784 [facility] POLYCARBO 5 MIREYA OR EQUAL ANY INDEX PER LENS FRAMES V2020 YOGHASSAN YO CHRISTIN PURCHASES 5 SCRATCH V2760 [facility] CH[facility]ST[facility] RESISTANT 5 COATING PER LENS FITTING 65035 [facility] SPECTACLE 5 S XCPT APHAKIA MONOFOCAL OPHTH 42022 [facility] MEDICAL 5 XM&EVAL COMPRHNSV ESTAB PT 1/> IAADIADOO 46090 [facility] 4 [facility] INFLUENZA INTERNAL MED IAADIADOO 72636 [facility] 4 [facility] STREPTOCO INTERNAL CCUS MED GROUP A IAADIADOO 33466 [facility] LEGER 4 [facility] STREPTOCO INTERNAL CCUS MED GROUP A FLUORESCE 82372 [facility] NT 4 [facility] NONNFCT INC INC AGT ANTB TITER EA ANTIBODY C-REACTIV 27981 RAFI MCKEE E PROTEIN 4 [place] [address] RAFI MCKEE THYROID 4 [facility] STIMULATI INC INC NG HORMONE TSH GONADOTRO 53456 [facility] M[facility] PIN 4 [facility] CHORIONIC INC INC QUALITATI VE THERAPEUT 86402 RAFI MCKEE IC PX 1/> 4 [facility] AREAS INC INC EACH 15 MIN EXERCISES IADNA NOS 02781 [facility] KOENIGON 4 [facility] AMPLIFIED INC INC PROBE TQ EACH ORGANISM INF AGENT 79067 [facility] M[facility] DET 4 [facility] NUCLEIC INC INC ACID CLOSTRIDI UM AMP PROBE THERAPEUT 32065 RAFI RAFI IC PX 1/> 4 [facility] AREAS INC INC EACH 15 MIN EXERCISES INF AGENT 06443 RAFIIRAIDA KOENIGON DET 4 [facility] NUCLEIC INC INC ACID CLOSTRIDI UM AMP PROBE IADNA NOS 82589 [facility] MCKEE 4 [facility] AMPLIFIED INC INC PROBE TQ EACH ORGANISM SMR PRIM 80381 RAFIIRAIDA MCKEE SRC 4 [facility] GRAM/GIEM INC INC SA STAIN BCT FUNGI/FREEDOM L BLOOD 24429 [facility] OCCULT 4 [facility] PEROXIDAS INC INC E ACTV QUAL FECES 1-3 SPEC APPL 40717 [facility] MODALITY 4 [facility] 1/> AREAS INC INC ELEC STIMJ UNATTENDE D THERAPEUT 62723 RAFI MCKEE IC PX 1/> 4 [facility] AREAS INC INC EACH 15 MIN EXERCISES APPLICATI 11537 [facility] ON 4 [facility] MODALITY INC INC 1/> AREAS HOT/COLD PACKS APPL 81373 [facility] M[facility]EE MODALITY 4 [facility] 1/> AREAS INC INC ULTRASOUN D EA 15 MIN APPL 69469 [facility]FI MCKEE MODALITY 4 [facility] 1/> AREAS INC INC ULTRASOUN D EA 15 MIN THERAPEUT 77641 RAFI MCKEE IC PX 1/> 4 [facility] AREAS INC INC EACH 15 MIN EXERCISES APPL 30298 [facility] MCKEE MODALITY 4 [facility] 1/> AREAS INC INC ELEC STIMJ UNATTENDE D APPLICATI 80070 [facility] M[facility] ON 4 [facility] MODALITY INC INC 1/> AREAS HOT/COLD PACKS MANUAL 82565 [facility] THERAPY 4 [facility] TQS 1/> INC INC REGIONS EACH 15 MINUTES MANUAL 75375 [facility]EE THERAPY 4 [facility] TQS 1/> INC INC REGIONS EACH 15 MINUTES APPLICATI 87599 RFAI MCKEE ON 4 [facility] MODALITY INC INC 1/> AREAS HOT/COLD PACKS THERAPEUT 62058 RAFI MCKEE IC PX 1/> 4 [facility] AREAS INC INC EACH 15 MIN EXERCISES APPL 70498 RAFI KOENIGON MODALITY 4 [facility] 1/> AREAS INC INC ELEC STIMJ UNATTENDE D APPL 71482 [facility]FI MCKEE MODALITY 4 [facility] 1/> AREAS INC INC ULTRASOUN D EA 15 MIN PHYSICAL 25318 [facility] M[facility] THERAPY 4 [facility] EVALUATIO INC INC N RADEX 78911 [place] KIMINE D SPINE 4 MEDICAL THORACIC IMAGING 3 VIEWS ASS RADEX 33778 [place] HANNA SPINE 4 MEDICAL TITUS LUMBOSACR IMAGING AL ASS MINIMUM 4 VIEWS CRTCHS E0114 [employer] BREG INC. UNDARM 4 OTH THAN WOOD PAIR PAD TIP&HNDGR IP RADIOLOGI 75477 [place] HANNA C 4 MEDICAL TITUS EXAMINATI IMAGING ON ANKLE ASS 2 VIEWS BLOOD 10707 [facility] COUNT 4 [facility] COMPLETE INC INC AUTO&[place] [address] [facility]FI [facility]EE TROPONIN 4 [facility] QUANTITAT INC INC DIAMOND CREATINE 38286 [facility] MCKEE KINASE 4 [place] [address] RAFI MCKEE MAXILLOFA 4 [facility] CIAL W/O INC INC CONTRAST MATERIAL CREATINE 81031 RAFI MCKEE KINASE MB 4 [facility] [place] [address] RAFI MCKEE HEAD/BRAI 4 [facility] N W/O INC INC CONTRAST MATERIAL URINE 00261 [facility] MCKEE 4 [facility] TEST INC INC VISUAL COLOR CMPRSN METHS URNLS DIP 21086 [facility] M[facility]EE 4 [facility] STICK/TAB INC INC LET REAGENT AUTO MICROSCOP Y COMPREHEN 74588 [facility] M[facility] SIVE 4 [facility] [place] [address] [facility]ADE TRANSVAGI 4 FEDERICO FEDERICO NAL OPHTH 59412 SANAZ WALLER MEDICAL 4 XM&EVAL COMPRHNSV ESTAB PT 1/> FITTING 66151 SANA[facility] WALLER SPECTACLE 4 S XCPT APHAKIA MONOFOCAL SPHERE V2100 SANAZ WALLER SINGLE 4 VISION PLANO +/- 4.00 PER LENS FRAMES V2020 SANAZ WALLER PURCHASES 4 SCRATCH V2760 SANA[facility] WALLER RESISTANT 4 COATING PER LENS LENS V2784 SANA[facility] WALLER POLYCARBO 4 [place]RE[place] IN[place] [address] [facility] M[facility]EE INFUSION 4 [facility] THERAPY/P INC INC ROPHYLAXI S /DX 1ST TO 1 HR THERAPEUT 34437 [facility] M[facility] IC 4 [facility] INJECTION INC INC IV PUSH EACH NEW DRUG COMPREHEN 17595 [facility] SIVE 4 [facility] METABOLIC INC INC PANEL BLOOD 56024 [facility] M[facility]EE COUNT 4 [facility] COMPLETE INC INC AUTO&AUTO DIFRNTL WBC GONADOTRO 47914 [facility] M[facility]EE PIN 4 [facility] CHORIONIC INC INC QUALITATI VE AMB A0427 [facility] SERVICE 4 AMBULANCE AMBULANCE ALS SERVICE SERVICE EMERGENCY TRANSPORT LEVEL 1 GROUND A0425 [facility] MILEAGE 4 AMBULANCE [place]UL[place] [address] RAFI MCKEE TRANSVAGI 4 [facility] NAL INC INC GONADOTRO 46571 RA[facility] M[facility]EE PIN 4 [facility] CHORIONIC INC INC QUANTITAT DIAMOND BLOOD 70966 [facility]FI MCKEE COUNT 4 [facility] COMPLETE INC INC AUTO&AUTO DIFRNTL WBC COMPREHEN 02115 [facility] M[facility]EE SIVE 4 [facility] METABOLIC INC INC PANEL URNLS DIP 48851 [facility] MCKEE 4 [facility] STICK/TAB INC INC LET REAGENT AUTO MICROSCOP Y URINE 43675 [facility] MCKEE 4 [facility] TEST INC INC VISUAL COLOR CMPRSN METHS URINE 39630 [facility] MCKEE 3 [facility] TEST INC INC [place] [address] RAPP RAPP SURG 3 HENRY HENRY PATHOLOGY GROSS&BRANDEN ROSCOPIC EXAM COLONOSCO 52070 [facility] M[facility] PY 3 [facility] W/BIOPSY INC INC SINGLE/MU LTIPLE APPL 89707 DASHAWN SIERRA DASHAWN SIERRA MODALITY 3 1/> AREAS TRACTION MECHANICA L CHIROPRAC 14524 DASHAWN SIERRA DASHAWN SIERRA TIC 3 MANIPULAT DIAMOND [place] SPINAL 3-4 REGIONS THERAPEUT 12284 DASHAWN SIERRA DASHAWN SIERRA IC PX 1/> 3 AREAS EACH 15 MIN EXERCISES APPL 05872 DASHAWN SIERRA DASHAWN SIERRA MODALITY 3 1/> AREAS ELEC STIMJ UNATTENDE D APPL 31046 DASHAWN SIERRA DASHAWN SIERRA MODALITY 3 1/> AREAS TRACTION MECHANICA L THERAPEUT 10040 DASHAWN SIERRA DASHAWN SIERRA IC PX 1/> 3 AREAS EACH 15 MIN EXERCISES CHIROPRAC 85282 DASHAWN SIERRA DASHAWN SIERRA TIC 3 MANIPULAT DIAMOND [place] SPINAL 3-4 REGIONS APPL 68970 DASHAWN SIERRA DASHAWN SIERRA MODALITY 3 1/> AREAS TRACTION MECHANICA L CHIROPRAC 20059 DASHAWN SIERRA DASHAWN SIERRA TIC 3 MANIPULAT DIAMOND [place] SPINAL 3-4 REGIONS THERAPEUT 29036 DASHAWN SIERRA DASHAWN SIERRA IC PX 1/> 3 AREAS EACH 15 MIN EXERCISES APPL 59419 DASHAWN SIERRA DASHAWN SIERRA MODALITY 3 1/> AREAS ELEC STIMJ UNATTENDE D RADEX 16165 DASHAWN SIERRA DASHAWN SIERRA SPINE 3 CERVICAL 2 OR 3 VIEWS CUL BACT 65587 [facility] M[facility]EE STOOL 3 [facility] AEROBIC INC INC ISOL SALMONELL A&[place] [address] RAFI MCKEE CLOSTRIDI 3 [facility] UM INC INC DIFFICILE TOXIN SMR PRIM 15213 [facility] M[facility]EE SRC 3 [facility] GRAM/GIEM INC INC SA STAIN BCT FUNGI/FREEDOM L FRAMES V2020 SCIFRES SCIFRES PURCHASES 3 ANG ANG 1 VISN V2103 SCIFRES SCIFRES PLANO 3 ANG ANG TO+/-4.00 D SPHER 0.12-2.00 D CYL EA LENS V2784 SCIFRES SCIFRES POLYCARBO 3 ANG ANG MIREYA OR EQUAL ANY INDEX PER LENS VISION V2799 SCIFRES SCIFRES ITEM OR 3 ANG ANG SERVICE MISCELLAN EOUS 1 VISN V2104 SCIFRES SCIFRES PLANO-+/- 3 ANG ANG 4.00D SPHER 2.12-4.00 D CYL EA DETERMINA 54161 SCIFRES SCIFRES TION 3 ANG ANG REFRACTIV E STATE OPHTH 90865 SCIFRES SCIFRES MEDICAL 3 ANG ANG XM&EVAL COMPRHNSV ESTAB PT 1/> CUL BACT 30294 COMBINED COMBINED XCPT 3 PHYSICIAN PHYSICIAN URINE S LA S LA BLOOD/STO OL AEROBIC ISOL URNLS DIP 14018 BERE BERE 3 NIRANJAN NIRANJAN STICK/TAB LET RGNT [place] [address] [facility] TRANSVA 2 MEDICAL TITUS NAL IMAGING ASS GONADOTRO 02163 RFAI MCKEE PIN 2 [facility] CHORIONIC INC INC QUANTITAT DIAMOND IAADIADOO 75713 IVETSON BESSON 2 CINDY CINDY STREPTOCO CCUS GROUP A URNLS DIP 00784 [facility] MCKEE 2 [facility] STICK/TAB INC INC LET REAGENT AUTO MICROSCOP Y COMPREHEN 11886 [facility] M[facility]EE SIVE 2 [facility] METABOLIC INC INC PANEL URINE 90910 [facility] MCKEE 2 [facility] TEST INC [place] [address] RAFI MCKEE ABDOMEN & 2 [facility] PELVIS INC INC W/O CONTRAST MATERIAL BLOOD 67247 RAFI MCKEE COUNT 2 [facility] COMPLETE INC INC AUTO&AUTO DIFRNTL WBC CULTURE 99299 COMBINED COMBINED BACTERIAL 2 PHYSICIAN PHYSICIAN S LA S LA QUANTTATI VE COLONY COUNT URINE SUSCEPTIB 10157 COMBINED COMBINED ILITY 2 PHYSICIAN PHYSICIAN STUDY S LA S LA ANTIMICRO BIAL DISK METHOD URNLS DIP 83782 LUPE ANDRADE 2 FEDERICO FEDERICO STICK/TAB LET RGNT NON-AUTO W/[place] [address] RAFI MCKEE THYROXINE 2 [facility] TOTAL INC INC THYROID 04114 RAFI MCKEE HORM 2 [facility] UPTK/THYR INC INC [place] [address] RAFI MCKEE THYROID 2 [facility] STIMULATI INC INC NG HORMONE TSH INTRACUTA 11333 HOOD HOOD NEOUS 2 LIZZETTE LIZZETTE TESTS W/ALLERGE JOY EXTRACTS BRNCDILAT 84306 HOOD HOOD RSPSE 2 LIZZETTE LIZZETTE SPMTRY PRE&POST- BRNCDILAT ADMN PERCUTANE 90292 HOOD HOOD OUS TESTS 2 LIZZETTE LIZZETTE W/ALLERGE JOY EXTRACTS INSERTION 52191 LUPE ANDRADE 2 FEDERICO FEDERICO INTRAUTER INE DEVICE IUD URINE 06739 LUPE ANDRADE 2 FEDERICO FEDERICO TEST VISUAL COLOR CMPRSN METHS HEPATIC 27364 RAFI MCKEE FUNCTION 2 [facility] PANEL INC INC CYTP C/V 54315 PATHOLOGY PICKLESIM AUTO THIN 2 & ER JR TONY LYR CYTOLOGY PREPJ SCR LAB MNL RESCR [facility] 20445 MCKEMIE MCKEMIE DISCHARGE 2 JR LUZ JR LUZ DAY MANAGEMEN T 30 MIN/< ANES 64629 [facility] INTRAPERI 2 ANESTH ANESTH TONEAL OF THE OF THE UPPER BLUE BLUE ABDOMEN W/LAPS NOS INITIAL 28807 HARDIK ANT HARDIK ANT INPATIENT 2 CONSULT NEW/ESTAB PT 80 MIN SBSQ 56586 [facility] 2 CINDY CINDY CARE/DAY 25 MINUTES LAPS SURG 13347 ALLRAN JR ALLRAN JR 2 PABLO PABLO CHOLECYST ECTOMY W/CHOLANG IOGRAPHY CHOLANGIO 99023 [facility] FERREIRA GRAPHY&/P 2 MEDICAL TITUS ANCREATOG IMAGING QUAN ASS NTRAOP RS&I LEVEL III 26872 PATHOLOGY JOSEPH SURG 2 & BRI PATHOLOGY CYTOLOGY LAB GROSS&[place] [address] [facility] FERREIRA ABDOMINAL 2 MEDICAL TITUS REAL IMAGING TIME ASS W/IMAGE LIMITED INITIAL 68580 [facility] 2 CINDY CINDY CARE/DAY 50 MINUTES LAPAROSCO 5123 RAFI MCKEE PIC 2 [facility] CHOLECYST INC INC ECTOMY INTRAOPER 8753 RAFI MCKEE ATIVE 2 [facility] CHOLANGIO INC INC GRAM ECG 32798 RADHA GARCIA JR ROUTINE 2 DWI DWI ECG W/LEAST 12 LDS I&R ONLY RADIOLOGI 32631 [place] HANNA C EXAM 2 MEDICAL TITUS CHEST 2 IMAGING VIEWS ASS FRONTAL&L ATERAL RADIOLOGI 21944 [place] HANNA C 2 MEDICAL TITUS EXAMINATI IMAGING ON CHEST ASS SINGLE VIEW FRONTAL URNLS DIP 92866 LUPE ANDRADE 2 FEDERICO FEDERICO STICK/TAB LET RGNT NON-AUTO W/O MICRSCP COMPREHEN 06042 [facility]EE SIVE 2 [facility] METABOLIC INC INC PANEL URNLS DIP 15614 [facility] MCKEE 2 [facility] STICK/TAB INC INC LET REAGENT AUTO MICROSCOP Y BLOOD 87489 [facility] MCKEE COUNT 2 [facility] COMPLETE INC INC AUTO&[place] [address] RAFI MCKEE INFUSION 2 [facility] HYDRATION INC INC INITIAL 31 MIN-1 HOUR URNLS DIP 71153 [facility] MCKEE 2 [facility] STICK/TAB INC INC LET REAGENT AUTO MICROSCOP Y CULTURE 90558 [facility] M[facility]EE BACTERIAL 2 [facility] INC INC QUANTTATI VE COLONY COUNT URINE CULTURE 16190 [facility] M[facility]EE BCT 2 [facility] ISOL&PRSM INC INC PTV ID ISOLATE EA URINE SUSCEPTIB 77770 [facility] M[facility]EE ILITY 2 [facility] STUDY INC INC ANTIMICRO BIAL DISK METHOD NEURAXIAL 26973 [facility] 2 ANESTH PHOEBE ANALG/ANE OF THE S PLND BLUE VAGINAL DELIVERY VAGINAL 03501 LUPE ANDRADE DELIVERY 2 FEDERICO FEDERICO ONLY W/POSTPAR GREGORIO CARE REPAIR OF 7569 RAFI MCKEE OTHER 2 [facility] CURRENT INC INC OBSTETRIC LACERATIO N URNLS DIP 04780 [facility] MCKEE 2 [facility] STICK/TAB INC INC LET REAGENT AUTO MICROSCOP Y 85521 [facility] ANDRADE NONSTRESS 2 FEDERICO FEDERICO TEST URNLS DIP 80570 [facility] MCKEE 2 [facility] STICK/TAB INC INC LET REAGENT AUTO MICROSCOP Y CULTURE 79857 RAFI MCKEE BACTERIAL 2 [facility] INC INC QUANTTATI VE COLONY COUNT URINE BLOOD 88820 [facility] MCKEE COUNT 2 [facility] COMPLETE INC INC AUTO&AUTO DIFRNTL WBC 97670 RA[facility] M[facility]EE NONSTRESS 2 [facility] TEST INC INC CUL BACT 31006 COMBINED COMBINED XCPT 2 PHYSICIAN PHYSICIAN URINE S LA S LA BLOOD/STO OL AEROBIC ISOL US PREG 44971 [facility] UTERUS 2 FEDERICO FEDERICO REAL TIME F/U TRNSABDL PER FETUS 40228 LU[facility] ANDRADE BIOPHYSIC 2 FEDERICO FEDERICO AL PROFILE W/O NON-STRES S TESTING DOPPLER 65247 [facility] ANDRADE VELOCIMET 2 FEDERICO FEDERICO RY UMBILICAL ARTERY 66413 [facility] M[facility]EE NONSTRESS 2 [facility] TEST INC INC FTL 09145 RAFI MCKEE FIBRONECT 2 [facility] IN INC INC CERVICOVA G SECRETION S SEMI-MARITZA URNLS DIP 76349 RAFI MCKEE 2 [facility] STICK/TAB INC INC LET REAGENT AUTO MICROSCOP Y URNLS DIP 64214 RAFI RAFI 2 [facility] STICK/TAB INC INC LET RGNT NON-AUTO W/O MICRSCP GLUCOSE 25664 RAFI MCKEE TOLERANCE 2 [facility] EA ADDL INC INC BEYOND 3 SPECIMENS GLUCOSE 51398 RAFI MCKEE TOLERANCE 2 [facility] TEST GTT INC INC 3 SPECIMENS GLUCOSE 66389 LUPE ANDRADE TOLERANCE 2 FEDERICO FEDERICO TEST GTT 3 SPECIMENS OPHTH 12366 SANAZ WALLER MEDICAL 2 XM&EVAL COMPRHNSV ESTAB PT 1/> DETERMINA 01955 SANAZ WALLER TION 2 REFRACTIV E STATE FITTING 52579 SANAZ WALLER SPECTACLE 2 S XCPT APHAKIA MONOFOCAL 1 VISN V2104 SANAZ WALLER PLANO-+/- 2 4.00D SPHER 2.12-4.00 D CYL EA FRAMES V2020 SANAZ WALLER PURCHASES 2 1 VISN V2103 SANAZ WALLER PLANO 2 TO+/-4.00 D SPHER 0.12-2.00 [place] [address] [facility] M[facility]EE NONSTRESS 2 [facility] TEST INC INC OBSERVATI 41871 ASHLEY FREEMANL ON/INPATI 2 [facility] 55 MINUTES CUL BACT 96778 COMBINED COMBINED XCPT 1 PHYSICIAN PHYSICIAN URINE S LA S LA BLOOD/STO OL AEROBIC ISOL 99423 RAFI MCKEE NONSTRESS 1 [facility] TEST INC INC OBSERVATI 67274 RUSS FREEMANL ON/INPATI 1 ASHLEY ROY [facility] C[facility] 55 MINUTES EVAL C/V 02468 RAFI M[facility]EE AMNIOTIC 1 [facility] FLUID INC INC PROTEIN QUAL EA SPECIMEN US PREG 56595 [facility] UTERUS 1 [facility] AFTER [facility] [place] [address] RAFI MCKEE STREPTOCO 1 [facility] CCUS INC INC GROUP A IAADI 34617 RAFI MCKEE INFLUENZA 1 [facility] B VIRUS INC INC IAADI 44495 RAFI MCKEE INFFLUENZ 1 [facility] A A VIRUS INC INC URNLS DIP 70278 [facility] MCKEE 1 [facility] STICK/TAB INC INC LET REAGENT AUTO MICROSCOP Y ALPHA-FET 49889 RAFI MCKEE OPROTEIN 1 [facility] [place] [address] RAFI MCKEE ESTRIOL 1 [facility] INC INC GONADOTRO 10519 RAFI MCKEE PIN 1 [facility] CHORIONIC INC INC QUANTITAT DIAMOND URNLS DIP 97468 RAFI MCKEE 1 [facility] STICK/TAB INC INC LET REAGENT AUTO MICROSCOP Y URINE 99065 [facility] MCKEE 1 [facility] TEST INC INC VISUAL COLOR CMPRSN METHS EXCISION 06872 JOSEPH HIGGINS ROSE NAIL 1 EMERGENCY [facility] PERMANENT REMOVAL REMOVAL 8623 RAFI MCKEE OF NAIL 1 [facility] NAILBED INC INC OR NAIL FOLD US PREG 25469 WOMEN'S ANDRADE UTERUS 1 [facility] REAL TIME CLINIC OF W/IMAGE HECTOR DCMTN TRANSVAG CYTP C/V 41743 PATHOLOGY PATHOLOGY AUTO THIN 1 & & LYR CYTOLOGY CYTOLOGY PREPJ SCR LAB LAB MNL RESCR PHYS MOLEC 91881 MOLECULAR MOLECULAR ISOL/XTRJ 1 HP PATHOLOGY PATHOLOGY NUCLEIC LAB NETW LAB NETW ACID EA TYPE MOLECULAR 71994 MOLECULAR MOLECULAR DX AMP 1 TARGET PATHOLOGY PATHOLOGY MULTIPLEX LAB NETW LAB NETW EA ADDL SEQ MOLEC 41099 MOLECULAR MOLECULAR SEP&ID HI 1 RESOLU PATHOLOGY PATHOLOGY TQ EACH LAB NETW LAB NETW NUCLEIC ACID PREP MOLECULAR 84000 MOLECULAR MOLECULAR DX AMP 1 TARGET PATHOLOGY PATHOLOGY MULTIPLEX LAB NETW LAB NETW 1ST 2 SEQ MOLECULAR 68536 MOLECULAR MOLECULAR 1 DIAGNOSTI PATHOLOGY PATHOLOGY CS LAB NETW LAB NETW INTERPRET ATION & REPORT MUTATION 79505 MOLECULAR MOLECULAR ID 1 ENZYMATIC PATHOLOGY PATHOLOGY LAB NETW LAB NETW LIG/PRIME R XTN 1 SGM EA IADNA 05967 PATHOLOGY PATHOLOGY CHLAMYDIA 1 & & CYTOLOGY CYTOLOGY TRACHOMAT LAB LAB IS AMPLIFIED PROBE TQ IADNA 29978 PATHOLOGY PATHOLOGY NEISSERIA 1 & & CYTOLOGY CYTOLOGY GONORRHOE LAB LAB AE AMPLIFIED PROBE TQ GONADOTRO 83585 RAFI MCKEE PIN 1 [facility] CHORIONIC INC INC QUANTITAT DIAMOND SPHERE V2100 [facility] SINGLE 1 VISION PLANO +/- 4.00 PER LENS FRAMES V2020 [facility] PURCHASES 1 OPHTH 52097 [facility] MEDICAL 1 XM&EVAL COMPRHNSV ESTAB PT 1/> FITTING 66391 [facility] SPECTACLE 1 S XCPT APHAKIA MONOFOCAL URNLS DIP 92546 [facility]EE [facility] STICK/TAB INC INC LET REAGENT AUTO MICROSCOP Y URINE 86673 [facility] TEST INC INC [place] [address] [facility] M[facility] STREPTOCO 0 [facility] CCUS INC INC GROUP A 3D 62268 [facility] M[facility] RENDERING 0 [facility] W/INTERP INC INC & [place] [address] [facility] HEAD/BRAI 0 [facility] N W/O INC INC CONTRAST MATERIAL RADEX 56121 [facility] ANKLE 0 [facility] COMPLETE INC INC MINIMUM 3 VIEWS RADIOLOGI 82914 [facility] C 0 [facility] EXAMINATI INC INC ON ANKLE 2 VIEWS IAADI 18458 [facility] M[facility] INFFLUENZ 9 [facility] A A VIRUS INC INC IAADI 10635 [facility] M[facility] INFLUENZA 9 [facility] [place] [address] RA[facility] M[facility]EE STREPTOCO 9 [facility] CCUS INC INC GROUP A LEVEL III 15987 PATHOLOGY PATHOLOGY SURG 9 & & PATHOLOGY CYTOLOGY CYTOLOGY LAB LAB GROSS&BRANDEN ROSCOPIC EXAM TONSILLEC 63064 ISAI ALEX YESSY 9 DAWOOD Brunson DAWOOD Boy PRIMARY/S ECONDARY AGE 12/> BLOOD 65508 [facility] COUNT 9 [facility] HEMOGLOBI INC INC N ANESTHESI 81889 COMMUNITY Danish TRIVEDI 9 ANESTH DENZEL [place] INTRAORAL OF THE WITH BLUEGRASS BIOPSY NOS GONADOTRO 44934 [facility] PIN 9 [facility] CHORIONIC INC INC QUALITATI VE BLOOD 37776 [facility] COUNT 9 [facility] [place] [address] [facility] INFUSION 9 [facility] THERAPY INC INC PROPHYLAX IS/[place] [address] [facility] INFUSION 9 [facility] THERAPY/P INC INC ROPHYLAXI S /DX 1ST TO 1 HR THERAPEUT 89819 [facility] IC 9 [facility] INJECTION INC INC IV PUSH EACH NEW DRUG TONSILLEC 282 [facility] M[facility]EE YESSY 9 [facility] WITHOUT INC INC ADENOIDEC YESSY IAADI 13247 [facility] M[facility] INFFLUENZ 9 [facility] A A VIRUS INC INC IAADI 91221 RA[facility] MCKEE INFLUENZA 9 [facility] [place] [address] RAFI MCKEE STREPTOCO 9 [facility] [place] [address] RAFI MCKEE STREPTOCO 9 [facility] CCUS INC INC GROUP A RADEX 43012 [place], SHOULDER 8 MEDICAL ANDRES P COMPLETE IMAGING MINIMUM 2 ASSOCIATE VIEWS S APPLICATI 76170 [place] LONG [facility] SPLINT ON SHOULDER HAND PERCUTANE 83574 HOOD [place] OUS TESTS 8 LIZZETTE B LIZZETTE B W/ALLERGE JOY EXTRACTS MPSV4 22058 DHS/CO RAFI VACCINE 8 [facility] ACYW-135 BANK ACCT SUBQ USE 1 VISN V2103 YO, YO, PLANO 8 PRABHJOT A PRABHJOT A TO+/-4.00 D SPHER 0.12-2.00 D CYL EA FRAMES V2020 SANAZ YO PURCHASES 8 PRABHJOT A PRABHJOT A RPR&REFIT 07391 SANAZ YO G 8 PRABHJOT A PRABHJOT A SPECTACLE S EXCEPT APHAKIA Encounters Encounter Start End Date Code Location Performer Type Date HOSPITAL [facility] [place] [facility] T OFFICE 65326 [facility] 7 7 PHYSICIAN T [facility] 20 S GROUP MINUTES HOSPITAL RAFI - 7 7 [facility] T H[facility] RAFI - 7 7 [facility] OUTPATIEN INC T EMERGENCY 38626 [facility] PAO 7 7 PHYSICIAN DEPARTMEN S, [facility] T VISIT HIGH/URGE NT SEVERITY EMERGENCY 96218 [facility] 7 7 [facility] T VISIT LOW/MODER SEVERITY HOSPITAL RAFI - 7 7 [facility] T OFFICE 64052 [facility] T [facility]IT [address]ES [address] [facility] 7 N URGENT T VISIT CARE 15 MINUTES OFFICE 19237 [facility] 7 7 DISTRICT T NEW 20 HLTH DEPT MINUTES [facility] EMERGENCY 49747 [facility] 6 6 [place] [facility] NIRANJAN T VISIT SERV HIGH/URGE NT SEVERITY HOSPITAL [facility] - 6 6 N OUTPATIEN COMMUNTIY T HOSPITA OFFICE 37364 [facility] 6 6 N URGENT ABD T NEW 30 CARE MINUTES HOSP[facility] - 6 6 N OUTPATIEN COMMUNTIY T HOSPITA EMERGENCY 88528 [facility] 6 6 N DEPARTMEN COMMUNTIY T VISIT HOSPITA LOW/MODER SEVERITY EMERGENCY 30653 [facility] 6 6 [place] KAYLI DEPARTMEN EMERGENCY T VISIT PHYS MODERATE SEVERITY OFFICE 81700 [facility] OUTPATIEN 6 6 T VISIT 15 MINUTES EMERGENCY 29705 [facility] 6 6 N DEPARTMEN COMMUNTIY T VISIT HOSPITA HIGH/URGE NT SEVERITY [facility]OSPITAL [facility] - 6 6 N OUTPATIEN COMMUNTIY T HOSPITA OFFICE 68792 [facility] 6 6 [place] ION ORTHOPAED NEW/ESTAB [facility] PATIENT 40 MIN [facility]OSPITAL [facility] - 6 6 N OUTPATIEN COMMUNTIY T HOSPITA [facility] - 6 6 N OUTPATIEN COMMUNTIY T HOSPITA EMERGENCY 31447 [facility] 6 6 N DEPARTMEN COMMUNTIY T VISIT HOSPITA MODERATE SEVERITY EMERGENCY 23673 [facility] 6 6 [place] AQUINO DEPARTMEN EMERGENCY T VISIT SERV HIGH/URGE NT SEVERITY EMERGENCY 17173 [facility] 6 6 [place] DEPARTMEN EMERGENCY T VISIT PHYS HIGH/URGE NT SEVERITY EMERGENCY 53659 [facility] 6 6 N DEPARTMEN COMMUNTIY T VISIT HOSPITA MODERATE SEVERITY HOSPITAL [facility] - 6 6 N OUTPATIEN COMMUNTIY T HOSPITA [facility] - 6 6 N OUTPATIEN COMMUNTIY T HOSPITA EMERGENCY 07679 [facility] 6 6 N DEPARTMEN COMMUNTIY T VISIT HOSPITA MODERATE SEVERITY EMERGENCY 00178 [facility] 6 6 [place] KAYLI DEPARTMEN EMERGENCY T VISIT PHYSI HIGH/URGE NT SEVERITY EMERGENCY 59937 [facility] 6 6 N DEPARTMEN COMMUNTIY T VISIT HOSPITA LIMITED/M INOR [facility] H[facility]PITAL [facility] - 6 6 N OUTPATIEN COMMUNTIY T HOSPCAPE [facility] EMERGENCY 51449 [facility] 5 5 N DEPARTMEN COMMUNTIY T VISIT [facility]OSPCAPE [facility] LOW/MODER SEVERITY EMERGENCY 67174 [facility] 5 5 [place] - [facility] EMERGENCY PAT T VISIT PHYS MODERATE SEVERITY HOSPITAL [facility] - 5 5 N [facility] INPATIENT INC OFFICE 22325 [facility] OUT[facility] 5 5 PHYSICIAN FEDERICO T VISIT S GROUP 15 MINUTES HOSPITAL [facility] - 5 5 [facility] OUTPATIEN INC T OFFICE 19279 [facility] OUT[facility] 5 5 PHYSICIAN FEDER[facility] T VISIT S GROUP 15 MINUTES HOSPITAL [facility] - 5 5 [facility] OUTPATIEN INC [facility] - 5 5 [facility] OUTPATIEN INC T OFFICE 19269 [facility] 5 5 PHYSICIAN FEDERICO T VISIT S GROUP [address]ES [address] [facility] OUTPATI[facility] 5 5 PHYSICIAN FEDERICO T VISIT S GROUP [address]ES [address] [facility] OUTPATI[facility] 5 5 PHYSICIAN FEDERICO T VISIT S GROUP [address]ES [address] [facility] OUTPATIEN 5 5 PHYSICIAN FEDERICO T VISIT S GROUP [address]ES [address] [facility] OUTPATI[facility] 5 5 PHYSICIAN FEDERICO T VISIT S GROUP 15 MINUTES HOSPITAL [facility] - 5 5 [facility] OUTPATIEN INC [facility] RA[facility] - 5 5 [facility] OUTPATIEN INC T OFFICE 15908 [facility] OUTPATI[facility] 5 5 PHYSICIAN FEDERICO T VISIT S GROUP 15 MINUTES HOSPITAL [facility] - 5 5 [facility] OUTPATIEN INC T OFFICE 32535 [facility] OUTPATI[facility] 5 5 PHYSICIAN FEDERICO T VISIT S GROUP 15 MINUTES EMERGENCY 92063 SAURABH MARTINEZEY 5 5 PHYSICIAN [facility] S, [facility] T VISIT HIGH/URGE NT SEVERITY EMERGENCY 70515 SAURABH PAO 5 5 PHYSICIAN [facility] T VISIT HIGH/URGE NT SEVERITY OFFICE 77163 [facility] OUTPATIEN 5 5 PHYSICIAN FEDERICO T VISIT S GROUP [address]ES [address] [facility] OUTPATI[facility] 5 5 PHYSICIAN FEDERICO T VISIT S GROUP 15 MINUTES EMERGENCY 59853 [facility] MORALES 5 5 [facility] T VISIT P LOW/MODER SEVERITY HOSPITAL [facility] - 5 5 [facility] OUTPATIEN INC HOSPITAL [facility] 5 5 [facility] OUTPATIEN [facility] RA[facility] - 5 5 [facility] OUTPATIEN INC T OFFICE 23451 [place] BERE [facility] 5 5 [facility] T VISIT INTERNAL 15 MED MINUTES OFFICE 28719 [place] LEGER OUTPATIEN 4 4 [place] FLINTR[place]GE AQUINO T VISIT INTERNAL 15 MED MINUTES OFFICE 62489 [place] LEGER OUTPATIEN 4 4 [place] FLINTR[place] AQUINO T VISIT INTERNAL 15 MED MINUTES HOSPITAL [facility] - 4 4 [facility] OUTPATIEN INC T OFFICE 29793 [place] HARD[facility] ANT OUTPATIEN 4 4 MEDICAL T VISIT SERV 25 FOUNDATIO MINUTES [facility] RAFI - 4 4 [facility] OUTPATIEN INC T OFFICE 07489 [place] USERY AND OUTPATIEN 4 4 [place] FLINTRIDGE T VISIT INTERNAL 15 MED MINUTES HOSPITAL RAFI - 4 4 [facility] OUTPATIEN INC T HOSPITAL [facility] 4 4 [facility] OUTPATIEN INC T HOSPITAL [facility] 4 4 [facility] OUTPATIEN INC T OFFICE 73053 [place] USERY AND OUTPATIEN 4 4 [place] FLINTRIDGE T VISIT INTERNAL 15 MED MINUTES EMERGENCY 98778 [facility] 4 4 [place] [facility] DEPARTMEN EMERGENCY T VISIT PHYS HIGH/URGE NT SEVERITY OFFICE 49783 [place] BESSON OUTPATIEN 4 4 [facility] T VISIT INTERNAL 15 MED MINUTES HOSPITAL RAFI - 4 4 [facility] OUTPATIEN INC T EMERGENCY 01482 [facility] 4 4 [place] DEPARTMEN EMERGENCY T VISIT PHYS HIGH/URGE NT SEVERITY EMERGENCY 36795 [facility] 4 4 [place] [facility] DEPARTMEN EMERGENCY T VISIT PHYS HIGH/URGE NT SEVERITY EMERGENCY 26769 PAO LEW 4 4 BRANDEN [facility] DEPARTMEN T VISIT MODERATE SEVERITY HOSPITAL RA[facility] - 4 4 [facility] OUTPATIEN INC T EMERGENCY 32468 PAO LEW 4 4 BRANDEN [facility] DEPARTMEN T VISIT HIGH/URGE NT SEVERITY EMERGENCY 77588 [facility] 4 [facility] LOW/MODER SEVERITY EMERGENCY 14614 AL[facility]ARIS ALFARIS 4 4 [facility] DEPARTMEN T VISIT MODERATE SEVERITY OFFICE 14556 USERY AND USERY AND OUTPATIEN 4 4 T VISIT 15 MINUTES EMERGENCY 41016 OZOR MAR VICKYOR MAR 4 4 DEPARTMEN T VISIT MODERATE SEVERITY EMERGENCY 05660 AMAURY LEW 4 4 [place] [facility] DEPARTMEN EMERGENCY T VISIT PHYS MODERATE SEVERITY OFFICE 15511 ANDRADE ANDRADE OUTPATIEN 4 4 FEDERICO FEDERICO T VISIT 15 MINUTES OFFICE 22983 LUPE SOTOE OUTPATIEN 4 4 FEDERICO FEDERICO T VISIT 15 MINUTES OFFICE 35078 USERY AND USERY AND OUTPATIEN 4 4 T VISIT 25 MINUTES Emergency ZENA Lew MD (ER) 4 23:27 4 00:52 [facility] EMERGENCY 34354 [facility] 4 4 [facility]ISIT HIGH/URGE NT SEVERITY EMERGENCY 65884 PAO LEW DEPT 4 4 BRANDEN BRANDEN VISIT HIGH SEVERITY& THREAT [facility] RAFI - 4 4 [facility] OUTPATIEN [facility] RAFI - 4 4 [facility] OUTPATIEN [facility] Emergency ZENA Moreland MD (ER) 4 01:26 4 02:54 [facility] RAFI - 4 4 [facility] OUTPATIEN [facility] EMERGENCY 33136 LOLITA BRIONES 4 4 DEPARTMEN T VISIT HIGH/URGE NT SEVERITY OFFICE 12591 BERE BLACKBURN OUTPATIEN 4 4 NIRANJAN NIRANJAN T VISIT 15 MINUTES EMERGENCY 84449 [facility] 4 4 [facility]ISIT LOW/MODER SEVERITY OFFICE 97367 BERE RIVERAENCE OUTPATIEN 4 4 NIRANJAN NIRANJAN T VISIT 15 MINUTES OFFICE 51771 ARELI SINGLETON OUTPATIEN 3 3 CINDY CINDY T VISIT 15 MINUTES HOSPITAL RAFI - 3 3 [facility] OUTPATIEN INC T OFFICE 62836 ALLRAN JR ALLRAN JR OUTPATIEN 3 3 PABLO PABLO T VISIT 25 MINUTES OFFICE 36821 [facility] BLACKBURN OUTPATIEN 3 3 NIRANJAN NIRANJAN T VISIT 15 MINUTES OFFICE 41100 DASHAWNLATANYA TAMEZ SIERRA OUTPATIEN 3 3 T NEW 20 MINUTES OFFICE 28716 ARELI SINGLETON OUTPATIEN 3 3 CINDY CINDY T VISIT 25 MINUTES HOSPITAL [facility] - 3 3 [facility] OUTPATIEN INC T Emergency ZENA Rafi Abreu (ER) 3 18:41 3 19:02 [facility] RAFI - 3 3 [facility] OUTPATIEN INC T EMERGENCY 81692 [facility] 3 3 [facility] DEPARTMEN INC T VISIT LOW/MODER SEVERITY EMERGENCY 56811 PAO MARTINEZEY 3 3 BRANDEN BRANDEN DEPARTMEN T VISIT MODERATE SEVERITY OFFICE 34715 BERE BERE OUTPATIEN 3 3 NIRANJAN NIRANJAN T VISIT 15 MINUTES HOSPITAL RAFI - 3 3 [facility] OUTPATIEN INC T EMERGENCY 58843 PAO LEW 3 3 BRANDEN BRANDEN DEPARTMEN T VISIT MODERATE SEVERITY EMERGENCY 15986 [facility] 3 3 [facility] DEPARTMEN INC T VISIT LOW/MODER SEVERITY OFFICE 18335 BERE BERE OUTPATIEN 3 3 NIRANJAN NIRANJAN T VISIT 15 MINUTES HOSPITAL RAFI - 2 2 [facility] OUTPATIEN INC T OFFICE 66561 BERE BERE OUTPATIEN 2 2 NIRANJAN NIRANJAN T VISIT 15 MINUTES HOSPITAL RAFI - 2 2 [facility] OUTPATIEN INC T OFFICE 35278 ARELI SINGLETON OUTPATIEN 2 2 CINDY CINDY T VISIT 15 MINUTES OFFICE 69785 SCIFRES SCIFRES OUTPATIEN 2 2 ANG ANG T VISIT 10 MINUTES OFFICE 38142 JUDY KIM OUTPATIEN 2 2 NAN NAN T VISIT 15 MINUTES HOSPITAL RA[facility] - 2 2 [facility] OUTPATIEN INC T EMERGENCY 27293 ALINE ABREU DEPT 2 2 III LUZ III LUZ VISIT HIGH SEVERITY& THREAT FUNCJ EMERGENCY 08358 [facility] 2 2 [facility] DEPARTMEN INC T VISIT MODERATE SEVERITY OFFICE 47617 RA[facility] MCKEE OUTPATIEN 2 2 [facility] MIN[facility] HEAL HEAL OFFICE 80103 BERE BLACKBURN OUTPATIEN 2 2 NIRANJAN NIRANJAN T VISIT 15 MINUTES OFFICE 65386 LUPE ANDRADE OUTPATIEN 2 2 FEDERICO FEDERICO T VISIT 15 MINUTES HOSPITAL [facility] - 2 2 [facility] OUTPATIEN INC T EMERGENCY 99109 JOSEPH BRIONES 2 2 EMERGENCY DEPARTMEN SERVICES T VISIT HIGH/URGE NT SEVERITY EMERGENCY 46633 [facility] 2 2 [facility] DEPARTMEN INC T VISIT LOW/MODER SEVERITY OFFICE 49477 MCKEMIE MCKEMIE OUTPATIEN 2 2 JR LUZ JR LUZ T VISIT 15 MINUTES OFFICE 32463 LUPE ANDRADE OUTPATIEN 2 2 FEDERICO FEDERICO T VISIT 15 MINUTES HOSPITAL RAFI - 2 2 [facility] OUTPATIEN INC T OFFICE 65064 LUPE ANDRADE OUTPATIEN 2 2 FEDERICO FEDERICO T VISIT 15 MINUTES OFFICE 21886 HOOD HOOD OUTPATIEN 2 2 LIZZETTE LIZZETTE T NEW 45 MINUTES HOSPITAL RAFI - 2 2 [facility] OUTPATIEN INC T HOSPITAL RAFI - 2 2 [facility] INPATIENT INC OFFICE 58278 BERE BLACKBURN OUTPATIEN 2 2 NIRANJAN NIRANJAN T VISIT 15 MINUTES EMERGENCY 09483 ALINE ABREU DEPT 2 2 III LUZ III LUZ VISIT HIGH SEVERITY& THREAT FUNCJ EMERGENCY 68009 RAFI 2 2 [facility] DEPARTMEN INC T VISIT HIGH/URGE NT SEVERITY HOSPITAL RAFI - 2 2 [facility] OUTPATIEN INC T HOSPITAL RAFI - 2 2 [facility] OUTPATIEN INC T HOSPITAL RAFI - 2 2 [facility] INPATIENT INC OFFICE 11299 LUPE ANDRADE OUTPATIEN 2 2 FEDERICO FEDERICO T VISIT 15 MINUTES HOSPITAL RAFI - 2 2 [facility]PAT[facility]EN [facility] T OFFICE 58555 LUPE ANDRADE OUTPATIEN 2 2 FEDERICO FEDERICO T VISIT 15 MINUTES OFFICE 00964 LUPE ANDRADE OUTPATIEN 2 2 FEDERICO FEDERICO T VISIT 15 MINUTES EMERGENCY 65553 [facility] 2 2 [facility] V[facility] LIMITED/M INOR [facility] RAFI - 2 2 [facility] OUTPATIEN [facility] T EMERGENCY [address] [facility] [facility] 2 2 [facility] T VISIT HIGH/URGE NT SEVERITY OFFICE 83050 LUPE ANDRADE OUTPATIEN 2 2 FEDERICO FEDERICO T VISIT 15 MINUTES EMERGENCY 14816 JOSEPH LEW 2 2 EMERGENCY [facility] SERVICES T VISIT MODERATE SEVERITY EMERGENCY 30505 RAFI 2 2 [facility] DEPARTMEN INC T VISIT LOW/MODER SEVERITY HOSPITAL RAFI - 2 2 [facility] OUTPATIEN [facility] T OFFICE 72026 LUPE ANDRADE OUTPATIEN 2 2 FEDERICO FEDERICO T VISIT 15 MINUTES OFFICE 78898 JUDY KIM OUTPATIEN 2 2 NAN NAN T VISIT 15 MINUTES HOSPITAL RAFI - 2 2 [facility] OUTPATIEN INC T OFFICE 98633 ANDRADE ANDRADE OUTPATIEN 2 2 FEDERICO FEDERICO T VISIT 15 MINUTES HOSPITAL RAFI - 2 2 [facility] OUTPATIEN INC T OFFICE 56248 ANDRADE ANDRADE OUTPATIEN 2 2 FEDERICO FEDERICO T VISIT 15 MINUTES OFFICE 85955 ANDRADE ANDRADE OUTPATIEN 2 2 FEDERICO FEDERICO T VISIT 5 MINUTES HOSPITAL RAFI - 2 2 [facility] OUTPATIEN INC T OFFICE 26923 ANDRADE ANDRADE OUTPATIEN 2 2 FEDERICO FEDERICO T VISIT 15 MINUTES OFFICE 07665 ANSON GRIGGS OUTPATIEN 2 2 LUZ LUZ T VISIT 15 MINUTES OFFICE 02875 LUPE SOTOE OUTPATIEN 1 1 FEDERICO FEDERICO T VISIT 15 MINUTES HOSPITAL RAFI - 1 1 [facility] OUTPATIEN INC T HOSPITAL RAFI - 1 1 [facility] OUTPATIEN INC T EMERGENCY 62317 PAO MARTINEZEY 1 1 [facility] DEPARTMEN T VISIT HIGH/URGE NT SEVERITY EMERGENCY 60066 [facility] 1 1 [facility] DEPARTMEN INC T VISIT LOW/MODER SEVERITY OFFICE 21439 [facility] OUTPAT[facility] 1 1 [facility] T VISIT CLINIC OF 15 HECTOR MINUTES EMERGENCY 01270 PAO MARTINEZEY 1 1 [facility] DEPARTMEN T VISIT HIGH/URGE NT SEVERITY EMERGENCY 78978 [facility] 1 1 [facility] DEPARTMEN INC T VISIT LOW/MODER SEVERITY HOSPITAL RAFI - 1 1 [facility] OUTPATIEN INC T OFFICE 90810 ARELI SINGLETON OUTPATIEN 1 1 CINDY CINDY T VISIT 5 MINUTES HOSPITAL RAFI - 1 1 [facility] OUTPATIEN INC T OFFICE 76347 [facility] OUTPATIEN 1 1 [facility] T VISIT CLINIC OF 15 HECTOR MINUTES HOSPITAL RAFI - 1 1 [facility] OUTPATIEN INC T EMERGENCY 51744 RAFI 1 1 [facility] DEPARTMEN INC T VISIT LOW/MODER SEVERITY EMERGENCY 73771 JOSEPH HIGGINS ROSE 1 1 EMERGENCY DEPARTMEN SERVICES T VISIT HIGH/URGE NT SEVERITY HOSPITAL RAFI - 1 1 [facility] OUTPATIEN INC T EMERGENCY 14584 [facility] 1 1 [facility] DEPARTMEN INC T VISIT LOW/MODER SEVERITY EMERGENCY 83943 JOSEPH HIGGINS ROSE 1 1 EMERGENCY DEPARTMEN SERVICES T VISIT MODERATE SEVERITY OFFICE 66577 [place] BERE OUTPATIEN 1 1 [place] FLINTR[place]GE NIRANJAN T VISIT INTERNAL 10 MEDI MINUTES HOSPITAL RAFI - 1 1 [facility] OUTPATIEN INC T OFFICE 91056 [place] BERE OUTPATIEN 1 1 [place]INTR[place] NIRANJAN T VISIT INTERNAL 15 MEDI MINUTES OFFICE 01132 [place] BERE OUTPATIEN 1 1 [place] FLINTR[place]GE NIRANJAN T VISIT INTERNAL 15 MEDI MINUTES EMERGENCY 24808 JOSEPH LEW 1 1 EMERGENCY [facility] DEPARTMEN SERVICES T VISIT HIGH/URGE NT SEVERITY HOSPITAL RA[facility] - 1 1 [facility] OUTPATIEN INC T EMERGENCY 36620 [facility] 1 1 [facility] DEPARTMEN INC T VISIT LOW/MODER SEVERITY OFFICE 38094 [place] BERE OUTPATIEN 1 1 [place] FLINTRIDGE NIRANJAN T VISIT INTERNAL 15 MEDI MINUTES EMERGENCY 58620 JOSEPH LEW 0 0 EMERGENCY [facility] DEPARTMEN SERVICES T VISIT MODERATE SEVERITY HOSPITAL RAFI - 0 0 [facility] OUTPATIEN INC T EMERGENCY 37637 JOSEPH MERLOS, DEPT 0 0 EMERGENCY [facility] VISIT SERVICES HIGH SEVERITY& ASSOCIATE THREAT S FUNJ EMERGENCY 66344 [facility] 0 0 [facility] DEPARTMEN INC T VISIT LOW/MODER SEVERITY HOSPITAL RAFI - 0 0 [facility] OUTPATIEN INC T OFFICE 10628 [place] JUDY OUTPATIEN 0 0 NICHOLE MACHADO T VISIT INTERNAL 15 MEDI MINUTES OFFICE 57062 [place] MCKEMIE OUTPATIEN 0 0 NICHOLE LYON LUZ T VISIT INTERNAL 15 MED MINUTES OFFICE 44456 [place] JUDY OUTPATIEN 0 0 NICHOLE MACHADO T VISIT INTERNAL 15 MEDI MINUTES OFFICE 86860 [place] ARELI OUTPATIEN 0 0 NICHOLE Peng T VISIT INTERNAL 15 MED MINUTES EMERGENCY 70883 JOSEPH LEW, 0 0 EMERGENCY [facility] SERVICES T VISIT MODERATE ASSOCIATE SEVERITY S EMERGENCY 68546 [facility]FI 0 0 [facility] DEPARTMEN INC T VISIT LOW/MODER SEVERITY HOSPITAL RAFI - 0 0 [facility] OUTPATIEN INC T OFFICE 47499 [place] MCEVIMIE OUTPATIEN 9 9 NICHOLE LYON, T VISIT INTERNAL DENZEL F 15 MED MINUTES HOSPITAL RAFI - 9 9 [facility] OUTPATIEN INC T HOSPITAL RAFI - 9 9 [facility] OUTPATIEN INC T EMERGENCY 23015 [facility]FI 9 9 [facility] DEPARTMEN INC T VISIT LIMITED/M INOR PROB EMERGENCY 79932 JOSEPH LEW, 9 9 EMERGENCY [facility] SERVICES T VISIT MODERATE ASSOCIATE SEVERITY S HOSPITAL RAFI - 9 9 [facility] OUTPATIEN INC T OFFICE 30104 ISAI ALEX OUTPATIEN 9 9 DAWOOD Brunson T VISIT 15 MINUTES OFFICE 05205 ISAI ALEX OUTPATIEN 9 9 DAWOOD Brunson T NEW 30 MINUTES EMERGENCY 39648 JOSEPH KAPLAN, 9 9 EMERGENCY [facility] DEPARTMEN SERVICES T VISIT MODERATE ASSOCIATE SEVERITY S HOSPITAL RAFI - 9 9 [facility] OUTPATIEN INC T EMERGENCY 73988 RA[facility] 9 9 [facility] DEPARTMEN INC T VISIT LOW/MODER SEVERITY EMERGENCY 24961 [facility] 9 9 [facility] DEPARTMEN INC T VISIT LOW/MODER SEVERITY EMERGENCY 96003 JOSEPH MERLOS, 9 9 [facility] VISIT MODERATE ASSOCIATE SEVERITY S HOSPITAL RAFI - 9 9 [facility] OUTPATIEN INC T EMERGENCY 26780 [facility]FI 9 9 [facility] DEPARTMEN INC T VISIT LOW/MODER SEVERITY EMERGENCY 05109 TRACIE LEW, 9 9 [facility] T VISIT ON MODERATE SEVERITY HOSPITAL RAFI - 9 9 [facility] OUTPATIEN INC T EMERGENCY 62779 TRACIE MCDANIEL, 8 8 [facility] T VISIT ON MODERATE SEVERITY EMERGENCY 09311 RAFI 8 8 [facility] DEPARTMEN INC T VISIT LOW/MODER SEVERITY HOSPITAL RAFI - 8 8 [facility] OUTPATIEN INC T OFFICE 95583 HOOD, HOOD, CONSULTAT 8 8 LIZZETTE B LIZZETTE B ION NEW/ESTAB PATIENT 40 MIN OFFICE 61732 DHS/CO RAFI OUTWILDER 8 8 [facility]ALTH [facility] 10 [facility] MINUTES BANK ACCT PERIODIC 48794 [place] ANSON PREVENTIV 8 8 Arnel VARELA JR MED EST INTERNAL DENZEL F PATIENT MED -YRS OFFICE 31246 ROLDAN TYLER 8 8 NICHOLE Peng T VISIT INTERNAL 15 MED MINUTES OFFICE 00996 SANAZ YO OUTPATIEN 8 8 PRABHJOT A PRABHJOT A T VISIT 15 MINUTES
--- OUTSIDE RECORDS SUMMARY | 2017-04-11 18:15 | External Medical Summary Rpt ---
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 TEST INC INC FTL 39900 [facility] M[facility] FIBRONECT 5 [facility] IN INC INC CERVICOVA G SECRETION S SEMI-MARITZA 67945 [facility] LUPE NONSTRESS 5 PHYSICIAN FEDERICO TEST S GROUP GLUCOSE 14716 [facility] POST 5 PHYSICIAN PHYSICIAN GLUCOSE S GROUP S GROUP DOSE 33947 RUSS RAMIREZ NONSTRESS 5 ASHLEY ROY ROBBIN TEST EVAL C/V 79877 [facility] AMNIOTIC 5 [facility] FLUID INC INC PROTEIN QUAL EA SPECIMEN URNLS DIP 40618 [facility]EE 5 [facility] STICK/TAB INC INC LET REAGENT AUTO MICROSCOP Y URNLS DIP 68342 [facility]EE 5 [facility] STICK/TAB INC INC LET REAGENT AUTO MICROSCOP Y 58246 RUSS RAMIREZ NONSTRESS 5 ASHLEY ROY ROBBIN TEST GLUC BLD 47442 [facility] M[facility] GLUC MNTR 5 [facility] DEV INC INC CLEARED FDA SPEC HOME USE US PREG 44616 [facility] WEAVER[facility] UTERUS 5 MEDICAL TITUS AFTER 1ST IMAGING TRIMEST ASS GESTATION COLLECTIO 70349 RAFI RAFI N VENOUS 5 [facility] [place] [address] [facility] ESTRIOL 5 [facility] INC INC ALPHA-FET 33500 [facility] M[facility] OPROTEIN 5 [facility] SERUM INC INC GONADOTRO 49258 [facility] M[facility] PIN 5 [facility] CHORIONIC INC INC QUANTITAT DIAMOND RADIOLOGI 55582 [place] BEINEKE C 5 MEDICAL ARMOND EXAMINATI IMAGING ON CHEST ASS SINGLE VIEW FRONTAL CULTURE 58914 COMBINED COMBINED BACTERIAL 5 PHYSICIAN PHYSICIAN S LA S LA QUANTTATI VE COLONY COUNT URINE US PREG 46094 [facility] ANDRADE UTERUS 5 PHYSICIAN FEDERICO REAL TIME S GROUP W/IMAGE DCMTN TRANSVAG IAADI 21677 [facility] M[facility] INFFLUENZ 5 [facility] A A VIRUS INC INC IAADI 71014 [facility] M[facility] INFLUENZA 5 [facility] B VIRUS INC INC CUL BACT 23048 [facility] XCPT 5 [facility] URINE INC INC BLOOD/[place] [address] [facility] M[facility] STREPTOCO 5 [facility] CCUS INC INC GROUP A COLLECTIO 61297 [facility] N VENOUS 5 [facility] [place] [address] [facility] M[facility] INSULIN 5 [facility] [place] [address] RAFI MCKEE C-PEPTIDE 5 [facility] INC INC CORTISOL 08831 [facility] M[facility] TOTAL 5 [facility] INC INC BLOOD 92532 [facility] COUNT 5 [facility] COMPLETE INC INC AUTO&AUTO DIFRNTL WBC CYANOCOBA 31031 [facility] M[facility] SUELLEN 5 [facility] VITAMIN INC INC B-12 [place] [address] RAFI RAFI FREE 5 [facility] [place] [address] [facility] M[facility] THYROID 5 [facility] STIMULATI INC INC NG HORMONE TSH HEMOGLOBI 22407 [facility] M[facility]EE N 5 [facility] GLYCOSYLA INC INC KRISTINA A1C COLLECTIO 06072 [facility] M[facility]EE N VENOUS 5 [facility] BLOOD INC INC VENIPUNCT URE LIPID 12681 RAFI RAFI PANEL 5 [facility] INC INC COMPREHEN 45925 [facility] M[facility] SIVE 5 [facility] METABOLIC INC INC PANEL SPHERE V2100 YOGHASSAN YO CHRISTIN SINGLE 5 VISION PLANO +/- 4.00 PER LENS LENS V2784 [facility] POLYCARBO 5 MIREYA OR EQUAL ANY INDEX PER LENS FRAMES V2020 YOGHASSAN YO CHRISTIN PURCHASES 5 SCRATCH V2760 [facility] RESISTANT 5 COATING PER LENS FITTING 72570 [facility] SPECTACLE 5 S XCPT APHAKIA MONOFOCAL OPHTH 84052 [facility] MEDICAL 5 XM&EVAL COMPRHNSV ESTAB PT 1/> IAADIADOO 81010 [facility] 4 [facility] INFLUENZA INTERNAL MED IAADIADOO 96262 [facility] 4 [facility] STREPTOCO INTERNAL CCUS MED GROUP A IAADIADOO 50133 [facility] LEGER 4 [facility] STREPTOCO INTERNAL CCUS MED GROUP A FLUORESCE 32607 [facility] NT 4 [facility] NONNFCT INC INC AGT ANTB TITER EA ANTIBODY C-REACTIV 49183 [facility] M[facility]EE E PROTEIN 4 [place] [address] RAFI MCKEE THYROID 4 [facility] STIMULATI INC INC NG HORMONE TSH GONADOTRO 13003 [facility] M[facility] PIN 4 [facility] CHORIONIC INC INC QUALITATI VE THERAPEUT 44918 RA[facility] M[facility]EE IC PX 1/> 4 [facility] AREAS INC INC EACH 15 MIN EXERCISES IADNA NOS 25085 [facility]FI KOENIGON 4 [facility] AMPLIFIED INC INC PROBE TQ EACH ORGANISM INF AGENT 06735 [facility] M[facility] DET 4 [facility] NUCLEIC INC INC ACID CLOSTRIDI UM AMP PROBE THERAPEUT 58850 RAFI RAFI IC PX 1/> 4 [facility] AREAS INC INC EACH 15 MIN EXERCISES INF AGENT 51548 RAFIIRAIDA KOENIGON DET 4 [facility] NUCLEIC INC INC ACID CLOSTRIDI UM AMP PROBE IADNA NOS 54979 [facility] M[facility]EE 4 [facility] AMPLIFIED INC INC PROBE TQ EACH ORGANISM SMR PRIM 75546 RAFIIRAIDA MCKEE SRC 4 [facility] GRAM/GIEM INC INC SA STAIN BCT FUNGI/FREEDOM L BLOOD 94395 [facility] OCCULT 4 [facility] PEROXIDAS INC INC E ACTV QUAL FECES 1-3 SPEC APPL 22076 [facility] MODALITY 4 [facility] 1/> AREAS INC INC ELEC STIMJ UNATTENDE D THERAPEUT 06026 RA[facility] M[facility]EE IC PX 1/> 4 [facility] AREAS INC INC EACH 15 MIN EXERCISES APPLICATI 03149 [facility] ON 4 [facility] MODALITY INC INC 1/> AREAS HOT/COLD PACKS APPL 03412 [facility] M[facility] MODALITY 4 [facility] 1/> AREAS INC INC ULTRASOUN D EA 15 MIN APPL 24623 [facility] M[facility]EE MODALITY 4 [facility] 1/> AREAS INC INC ULTRASOUN D EA 15 MIN THERAPEUT 28220 RA[facility] M[facility]EE IC PX 1/> 4 [facility] AREAS INC INC EACH 15 MIN EXERCISES APPL 01539 [facility] M[facility] MODALITY 4 [facility] 1/> AREAS INC INC ELEC STIMJ UNATTENDE D APPLICATI 16201 [facility] ON 4 [facility] MODALITY INC INC 1/> AREAS HOT/COLD PACKS MANUAL 58235 [facility] THERAPY 4 [facility] TQS 1/> INC INC REGIONS EACH 15 MINUTES MANUAL 64679 [facility] THERAPY 4 [facility] TQS 1/> INC INC REGIONS EACH 15 MINUTES APPLICATI 55992 [facility] ON 4 [facility] MODALITY INC INC 1/> AREAS HOT/COLD PACKS THERAPEUT 87060 RA[facility] M[facility]EE IC PX 1/> 4 [facility] AREAS INC INC EACH 15 MIN EXERCISES APPL 57319 RAFI KOENIGON MODALITY 4 [facility] 1/> AREAS INC INC ELEC STIMJ UNATTENDE D APPL 22374 [facility] M[facility]EE MODALITY 4 [facility] 1/> AREAS INC INC ULTRASOUN D EA 15 MIN PHYSICAL 95668 [facility] M[facility] THERAPY 4 [facility] EVALUATIO INC INC N RADEX 45392 [place] KIMINE D SPINE 4 MEDICAL THORACIC IMAGING 3 VIEWS ASS RADEX 87029 [place] HANNA SPINE 4 MEDICAL TITUS LUMBOSACR IMAGING AL ASS MINIMUM 4 VIEWS CRTCHS E0114 [employer] INC. BREG INC. UNDARM 4 OTH THAN WOOD PAIR PAD TIP&HNDGR IP RADIOLOGI 23217 [place] HANNA C 4 MEDICAL TITUS EXAMINATI IMAGING ON ANKLE ASS 2 VIEWS BLOOD 23292 [facility] COUNT 4 [facility] COMPLETE INC INC AUTO&[place] [address] [facility] TROPONIN 4 [facility] QUANTITAT INC INC DIAMOND CREATINE 08020 [facility] M[facility] KINASE 4 [place] [address] RA[facility] M[facility] MAXILLOFA 4 [facility] CIAL W/O INC INC CONTRAST MATERIAL CREATINE 11978 [facility] M[facility]EE KINASE MB 4 [facility] [place] [address] [facility] M[facility]EE HEAD/BRAI 4 [facility] N W/O INC INC CONTRAST MATERIAL URINE 60626 [facility] MCKEE 4 [facility] TEST INC INC VISUAL COLOR CMPRSN METHS URNLS DIP 96745 [facility]EE 4 [facility] STICK/TAB INC INC LET REAGENT AUTO MICROSCOP Y COMPREHEN 27800 [facility] M[facility] SIVE 4 [facility] [place] [address] LU[facility] ANDRADE TRANSVAGI 4 FEDERICO FEDERICO NAL OPHTH 26663 SANAZ WALLER MEDICAL 4 XM&EVAL COMPRHNSV ESTAB PT 1/> FITTING 71967 [facility] SPECTACLE 4 S XCPT APHAKIA MONOFOCAL SPHERE V2100 SANA[facility] WALLER SINGLE 4 VISION PLANO +/- 4.00 PER LENS FRAMES V2020 SANA[facility] WALLER PURCHASES 4 SCRATCH V2760 [facility] RESISTANT 4 COATING PER LENS LENS V2784 [facility] POLYCARBO 4 [place] [address] [facility] INFUSION 4 [facility] THERAPY/P INC INC ROPHYLAXI S /DX 1ST TO 1 HR THERAPEUT 11944 [facility] M[facility] IC 4 [facility] INJECTION INC INC IV PUSH EACH NEW DRUG COMPREHEN 30940 [facility] SIVE 4 [facility] METABOLIC INC INC PANEL BLOOD 60280 [facility] COUNT 4 [facility] COMPLETE INC INC AUTO&AUTO DIFRNTL WBC GONADOTRO 87285 [facility] M[facility] PIN 4 [facility] CHORIONIC INC INC QUALITATI VE AMB A0427 [facility] ALS SERVICE SERVICE EMERGENCY TRANSPORT LEVEL 1 GROUND A0425 [facility]LE[facility] 4 [facility]ANCE AM[place]UL[place] [address] RAFI MCKEE TRANSVAGI 4 [facility] NAL INC INC GONADOTRO 90935 [facility] M[facility] PIN 4 [facility] CHORIONIC INC INC QUANTITAT DIAMOND BLOOD 33184 [facility] M[facility]EE COUNT 4 [facility] COMPLETE INC INC AUTO&AUTO DIFRNTL WBC COMPREHEN 69691 [facility]EE SIVE 4 [facility] METABOLIC INC INC PANEL URNLS DIP 60739 [facility] MCKEE 4 [facility] STICK/TAB INC INC LET REAGENT AUTO MICROSCOP Y URINE 63631 [facility] MCKEE 4 [facility] TEST INC INC VISUAL COLOR CMPRSN METHS URINE 18633 [facility] MCKEE 3 [facility] TEST INC INC [place] [address] RAPP RAPP SURG 3 HENRY HENRY PATHOLOGY GROSS&BRANDEN ROSCOPIC EXAM COLONOSCO 91908 [facility] M[facility] PY 3 [facility] W/BIOPSY INC INC SINGLE/MU LTIPLE APPL 08807 DASHAWN SIERRA DASHAWN SIERRA MODALITY 3 1/> AREAS TRACTION MECHANICA L CHIROPRAC 86205 DASHAWN SIERRA DASHAWN SIERRA TIC 3 MANIPULAT DIAMOND [place] SPINAL 3-4 REGIONS THERAPEUT 10370 DASHAWN SIERRA DASHAWN SIERRA IC PX 1/> 3 AREAS EACH 15 MIN EXERCISES APPL 94442 DASHAWN SIERRA DASHAWN SIERRA MODALITY 3 1/> AREAS ELEC STIMJ UNATTENDE D APPL 65895 DASHAWN SIERRA DASHAWN SIERRA MODALITY 3 1/> AREAS TRACTION MECHANICA L THERAPEUT 52309 DASHAWN SIERRA DASHAWN SIERRA IC PX 1/> 3 AREAS EACH 15 MIN EXERCISES CHIROPRAC 75758 DASHAWN SIERRA DASHAWN SIERRA TIC 3 MANIPULAT DIAMOND [place] SPINAL 3-4 REGIONS APPL 82204 DASHAWN SIERRA DASHAWN SIERRA MODALITY 3 1/> AREAS TRACTION MECHANICA L CHIROPRAC 63414 DASHAWN SIERRA DASHAWN SIERRA TIC 3 MANIPULAT DIAMOND [place] SPINAL 3-4 REGIONS THERAPEUT 00974 DASHAWN SIERRA DASHAWN SIERRA IC PX 1/> 3 AREAS EACH 15 MIN EXERCISES APPL 62803 DASHAWN SIERRA DASHAWN SIERRA MODALITY 3 1/> AREAS ELEC STIMJ UNATTENDE D RADEX 71834 DASHAWN SIERRA DASHAWN SIERRA SPINE 3 CERVICAL 2 OR 3 VIEWS CUL BACT 54890 [facility] M[facility] STOOL 3 [facility] AEROBIC INC INC ISOL SALMONELL A&[place] [address] RA[facility] M[facility]EE CLOSTRIDI 3 [facility] UM INC INC DIFFICILE TOXIN SMR PRIM 26726 [facility] SRC 3 [facility] MEM [...] 4.00D SPHER 2.12-4.00 D CYL EA DETERMINA 50600 SCIFRES SCIFRES TION 3 ANG ANG REFRACTIV E STATE OPHTH 49206 SCIFRES SCIFRES MEDICAL 3 ANG ANG XM&EVAL COMPRHNSV ESTAB PT 1/> CUL BACT 74525 COMBINED COMBINED XCPT 3 PHYSICIAN PHYSICIAN URINE S LA S LA BLOOD/STO OL AEROBIC ISOL URNLS DIP 07111 BERE BERE 3 NIRANJAN NIRANJAN STICK/TAB [place] RG[place] [address] [facility] TRANSVA 2 MEDICAL TITUS NAL IMAGING ASS GONADOTRO 78637 [facility] M[facility] PIN 2 [facility] CHORIONIC INC INC QUANTITAT DIAMOND IAADIADOO 15660 IVETSON BESSON 2 CINDY CINDY STREPTOCO CCUS GROUP A URNLS DIP 11608 [facility] MCKEE 2 [facility] STICK/TAB INC INC LET REAGENT AUTO MICROSCOP Y COMPREHEN 02079 [facility] M[facility] SIVE 2 [facility] METABOLIC INC INC PANEL URINE 89606 [facility] MCKEE 2 [facility] TEST INC [place] [address] RAFI MCKEE ABDOMEN & 2 [facility] PELVIS INC INC W/O CONTRAST MATERIAL BLOOD 68914 [facility] COUNT 2 [facility] COMPLETE INC INC AUTO&AUTO DIFRNTL WBC CULTURE 01024 COMBINED COMBINED BACTERIAL 2 PHYSICIAN PHYSICIAN S LA S LA QUANTTATI VE COLONY COUNT URINE SUSCEPTIB 72851 COMBINED COMBINED ILITY 2 PHYSICIAN PHYSICIAN STUDY S LA S LA ANTIMICRO BIAL DISK METHOD URNLS DIP 81586 LUPE ANDRADE 2 FEDERICO FEDERICO STICK/TAB LET RGNT NON-AUTO W/[place] [address] RA[facility] M[facility]EE THYROXINE 2 [facility] TOTAL INC INC THYROID 25324 RAFI MCKEE HORM 2 [facility] UPTK/THYR INC INC [place] [address] RAFI MCKEE THYROID 2 [facility] STIMULATI INC INC NG HORMONE TSH INTRACUTA 33122 HOOD HOOD NEOUS 2 LIZZETTE LIZZETTE TESTS W/ALLERGE JYO EXTRACTS BRNCDILAT 62234 HOOD HOOD RSPSE 2 LIZZETTE LIZZETTE SPMTRY PRE&POST- BRNCDILAT ADMN PERCUTANE 29963 HOOD HOOD OUS TESTS 2 LIZZETTE LIZZETTE W/ALLERGE JOY EXTRACTS INSERTION 63589 LUPE ANDRADE 2 FEDERICO FEDERICO INTRAUTER INE DEVICE IUD URINE 19515 LUPE ANDRADE 2 FEDERICO FEDERICO TEST VISUAL COLOR CMPRSN METHS HEPATIC 92898 RAFI M[facility]EE FUNCTION 2 [facility] PANEL INC INC CYTP C/V 40468 PATHOLOGY PICKLESIM AUTO THIN 2 & ER JR TONY LYR CYTOLOGY PREPJ SCR LAB MNL RESCR [facility] 88497 MCKEMIE MCKEMIE DISCHARGE 2 JR LUZ JR LUZ DAY MANAGEMEN T 30 MIN/< ANES 84284 [facility] INTRAPERI 2 ANESTH ANESTH TONEAL OF THE OF THE UPPER BLUE BLUE ABDOMEN W/LAPS NOS INITIAL 47622 HARDIK ANT HARDIK ANT INPATIENT 2 CONSULT NEW/ESTAB PT 80 MIN SBSQ 86461 [facility] 2 CINDY CINDY CARE/DAY 25 MINUTES LAPS SURG 53193 ALLRAN JR ALLRAN JR 2 PABLO PABLO CHOLECYST ECTOMY W/CHOLANG IOGRAPHY CHOLANGIO 08900 [facility] FERREIRA GRAPHY&/P 2 MEDICAL TITUS ANCREATOG IMAGING QUAN ASS NTRAOP RS&I LEVEL III 79760 PATHOLOGY JOSEPH SURG 2 & BRI PATHOLOGY CYTOLOGY LAB GROSS&[place] [address] [facility] FERREIRA ABDOMINAL 2 MEDICAL TITUS REAL IMAGING TIME ASS W/IMAGE LIMITED INITIAL 26260 [facility] 2 CINDY CINDY CARE/DAY 50 MINUTES LAPAROSCO 5123 [facility] M[facility]EE PIC 2 [facility] CHOLECYST INC INC ECTOMY INTRAOPER 8753 RAFI M[facility]EE ATIVE 2 [facility] CHOLANGIO INC INC GRAM ECG 33453 RADHA GARCIA JR ROUTINE 2 DWI DWI ECG W/LEAST 12 LDS I&R ONLY RADIOLOGI 24148 [place] C EXAM 2 MEDICAL TITUS CHEST 2 IMAGING VIEWS ASS FRONTAL&L ATERAL RADIOLOGI 62273 [place] HANNA C 2 MEDICAL TITUS EXAMINATI IMAGING ON CHEST ASS SINGLE VIEW FRONTAL URNLS DIP 56627 LUPE ANDRADE 2 FEDERICO FEDERICO STICK/TAB LET RGNT NON-AUTO W/O MICRSCP COMPREHEN 48363 [facility]EE SIVE 2 [facility] METABOLIC INC INC PANEL URNLS DIP 03375 [facility] MCKEE 2 [facility] STICK/TAB INC INC LET REAGENT AUTO MICROSCOP Y BLOOD 01380 [facility]EE COUNT 2 [facility] COMPLETE INC INC AUTO&[place] [address] RAFI MCKEE INFUSION 2 [facility] HYDRATION INC INC INITIAL 31 MIN-1 HOUR URNLS DIP 54672 [facility] MCKEE 2 [facility] STICK/TAB INC INC LET REAGENT AUTO MICROSCOP Y CULTURE 03703 [facility] M[facility]EE BACTERIAL 2 [facility] INC INC QUANTTATI VE COLONY COUNT URINE CULTURE 06357 [facility] M[facility]EE BCT 2 [facility] ISOL&PRSM INC INC PTV ID ISOLATE EA URINE SUSCEPTIB 01101 [facility] M[facility]EE ILITY 2 [facility] STUDY INC INC ANTIMICRO BIAL DISK METHOD NEURAXIAL 71732 [facility] LABOR 2 ANESTH PHOEBE ANALG/ANE OF THE S PLND BLUE VAGINAL DELIVERY VAGINAL 24291 LUPE ANDRADE DELIVERY 2 FEDERICO FEDERICO ONLY W/POSTPAR GREGORIO CARE REPAIR OF 7569 RAFI M[facility]EE OTHER 2 [facility] CURRENT INC INC OBSTETRIC LACERATIO N URNLS DIP 04181 [facility] MCKEE 2 [facility] STICK/TAB INC INC LET REAGENT AUTO MICROSCOP Y 93044 LUPE ANDRADE NONSTRESS 2 FEDERICO FEDERICO TEST URNLS DIP 81077 [facility] MCKEE 2 [facility] STICK/TAB INC INC LET REAGENT AUTO MICROSCOP Y CULTURE 38613 [facility] M[facility]EE BACTERIAL 2 [facility] INC INC QUANTTATI VE COLONY COUNT URINE BLOOD 11234 [facility] M[facility]EE COUNT 2 [facility] COMPLETE INC INC AUTO&AUTO DIFRNTL WBC 83062 [facility] M[facility]EE NONSTRESS 2 [facility] TEST INC INC CUL BACT 54523 COMBINED COMBINED XCPT 2 PHYSICIAN PHYSICIAN URINE S LA S LA BLOOD/STO OL AEROBIC ISOL US PREG 18767 LUPE ANDRADE UTERUS 2 FEDERICO FEDERICO REAL TIME F/U TRNSABDL PER FETUS 09677 LUPE ANDRADE BIOPHYSIC 2 FEDERICO FEDERICO AL PROFILE W/O NON-STRES S TESTING DOPPLER 83985 LUPE ANDRADE VELOCIMET 2 FEDERICO FEDERICO RY UMBILICAL ARTERY 98301 [facility] M[facility]EE NONSTRESS 2 [facility] TEST INC INC FTL 70891 RAFI MCKEE FIBRONECT 2 [facility] IN INC INC CERVICOVA G SECRETION S SEMI-MARITZA URNLS DIP 56514 [facility] MCKEE 2 [facility] STICK/TAB INC INC LET REAGENT AUTO MICROSCOP Y URNLS DIP 12697 RAFI RAFI 2 [facility] STICK/TAB INC INC LET RGNT NON-AUTO W/O MICRSCP GLUCOSE 81194 RAFI MCKEE TOLERANCE 2 [facility] EA ADDL INC INC BEYOND 3 SPECIMENS GLUCOSE 54202 RAFI MCKEE TOLERANCE 2 [facility] TEST GTT INC INC 3 SPECIMENS GLUCOSE 30416 LUPE ANDARDE TOLERANCE 2 FEDERICO FEDERICO TEST GTT 3 SPECIMENS OPHTH 36245 SANAZ WALLER MEDICAL 2 XM&EVAL COMPRHNSV ESTAB PT 1/> DETERMINA 54655 SANAZ WALLER TION 2 REFRACTIV E STATE FITTING 00008 SANAZ WALLER SPECTACLE 2 S XCPT APHAKIA MONOFOCAL 1 VISN V2104 SANAZ WALLER PLANO-+/- 2 4.00D SPHER 2.12-4.00 D CYL EA FRAMES V2020 SANAZ WALLER PURCHASES 2 1 VISN V2103 SANAZ WALLER PLANO 2 TO+/-4.00 D SPHER 0.12-2.[place] [address] [facility] NONSTRESS 2 [facility] TEST INC INC OBSERVATI 57912 ASHLEY FREEMANL ON/INPATI 2 [facility] CARE 55 MINUTES CUL BACT 34934 COMBINED COMBINED XCPT 1 PHYSICIAN PHYSICIAN URINE S LA S LA BLOOD/STO OL AEROBIC ISOL 52973 [facility] M[facility]EE NONSTRESS 1 [facility] TEST INC INC OBSERVATI 72295 RUSS FREEMANL ON/INPATI 1 ASHLEY ROY [facility] CARE 55 MINUTES EVAL C/V 83482 RA[facility] M[facility]EE AMNIOTIC 1 [facility] FLUID INC INC PROTEIN QUAL EA SPECIMEN US PREG 09269 WOMEN'S ANDRADE UTERUS 1 [facility] FEDERICO [facility] [place] [address] RAFI MCKEE STREPTOCO 1 [facility] CCUS INC INC GROUP A IAADI 27439 RAFI MCKEE INFLUENZA 1 [facility] B VIRUS INC INC IAADI 90386 RAFI MCKEE INFFLUENZ 1 [facility] A A VIRUS INC INC URNLS DIP 41848 [facility] MCKEE 1 [facility] STICK/TAB INC INC LET REAGENT AUTO MICROSCOP Y ALPHA-FET 76205 [facility] M[facility] OPROTEIN 1 [facility] [place] [address] RAFI [facility] ESTRIOL 1 [facility] INC INC GONADOTRO 41891 [facility] PIN 1 [facility] CHORIONIC INC INC QUANTITAT DIAMOND URNLS DIP 95642 [facility]EE 1 [facility] STICK/TAB INC INC LET REAGENT AUTO MICROSCOP Y URINE 83372 [facility] 1 [facility] TEST INC INC VISUAL COLOR CMPRSN METHS EXCISION 18590 JOSEPH HIGGINS ROSE NAIL 1 EMERGENCY [facility] PERMANENT REMOVAL REMOVAL 8623 [facility] MCKEE OF NAIL 1 [facility] NAILBED INC INC [place] NAIL FOLD [place] PREG 20440 [facility]'S [facility] UTERUS [facility] W/IMAGE HECTOR DCMTN TRANSVAG CYTP C/V 16348 PATHOLOGY PATHOLOGY AUTO THIN 1 & & LYR CYTOLOGY CYTOLOGY PREPJ SCR LAB LAB MNL RESCR PHYS MOLEC 67906 MOLECULAR MOLECULAR ISOL/XTRJ 1 HP PATHOLOGY PATHOLOGY NUCLEIC LAB NETW LAB NETW ACID EA TYPE MOLECULAR 07537 MOLECULAR MOLECULAR DX AMP 1 TARGET PATHOLOGY PATHOLOGY MULTIPLEX LAB NETW LAB NETW EA ADDL SEQ MOLEC 02129 MOLECULAR MOLECULAR SEP&ID HI 1 RESOLU PATHOLOGY PATHOLOGY TQ EACH LAB NETW LAB NETW NUCLEIC ACID PREP MOLECULAR 75012 MOLECULAR MOLECULAR DX AMP 1 TARGET PATHOLOGY PATHOLOGY MULTIPLEX LAB NETW LAB NETW 1ST 2 SEQ MOLECULAR 66665 MOLECULAR MOLECULAR 1 DIAGNOSTI PATHOLOGY PATHOLOGY CS LAB NETW LAB NETW INTERPRET ATION & REPORT MUTATION 10605 MOLECULAR MOLECULAR ID 1 ENZYMATIC PATHOLOGY PATHOLOGY LAB NETW LAB NETW LIG/PRIME R XTN 1 SGM EA IADNA 30055 PATHOLOGY PATHOLOGY CHLAMYDIA 1 & & CYTOLOGY CYTOLOGY TRACHOMAT LAB LAB IS AMPLIFIED PROBE TQ IADNA 25845 PATHOLOGY PATHOLOGY NEISSERIA 1 & & CYTOLOGY CYTOLOGY GONORRHOE LAB LAB AE AMPLIFIED PROBE TQ GONADOTRO 07375 [facility] PIN 1 [facility] CHORIONIC INC INC QUANTITAT DIAMOND SPHERE V2100 [facility] FIG[facility]ERED[facility] SINGLE 1 VISION PLANO +/- 4.00 PER LENS FRAMES V2020 [facility] FIG[facility] PURCHASES 1 OPHTH 82727 [facility] MEDICAL 1 XM&EVAL COMPRHNSV ESTAB PT 1/> FITTING 34895 [facility] SPECTACLE 1 S XCPT APHAKIA MONOFOCAL URNLS DIP 70719 [facility]EE 1 [facility] STICK/TAB INC INC LET REAGENT AUTO MICROSCOP Y URINE 89599 [facility]EE 1 [facility] TEST INC INC [place] [address] [facility] STREPTOCO 0 [facility] CCUS INC INC GROUP A 3D 64027 [facility] M[facility] RENDERING 0 [facility] W/INTERP INC INC & [place] [address] [facility] HEAD/BRAI 0 [facility] N W/O INC INC CONTRAST MATERIAL RADEX 95345 [facility] ANKLE [facility] COMPLETE INC INC MINIMUM 3 VIEWS RADIOLOGI 84794 [facility] C 0 [facility] EXAMINATI INC INC ON ANKLE 2 VIEWS IAADI 74994 [facility] M[facility] INFFLUENZ 9 [facility] A A VIRUS INC INC IAADI 18954 [facility] M[facility] INFLUENZA 9 [facility] [place] [address] [facility] M[facility] STREPTOCO 9 [facility] CCUS INC INC GROUP A LEVEL III 99144 PATHOLOGY PATHOLOGY SURG 9 & & PATHOLOGY CYTOLOGY CYTOLOGY LAB LAB GROSS&BRANDEN ROSCOPIC EXAM TONSILLEC 26353 ISAI ALEX YESSY 9 DAWOOD Brnuson DAWOOD Boy PRIMARY/S ECONDARY AGE 12/> BLOOD 91850 [facility] COUNT 9 [facility] HEMOGLOBI INC INC N ANESTHESI 09136 COMMUNITY Danish TRIVEDI 9 ANESTH DENZEL [place] INTRAORAL OF THE WITH BLUEGRASS BIOPSY NOS GONADOTRO 10025 [facility] PIN 9 [facility] CHORIONIC INC INC QUALITATI VE BLOOD 04533 [facility] COUNT 9 [facility] [place] [address] [facility] M[facility] INFUSION 9 [facility] THERAPY INC INC PROPHYLAX IS/[place] [address] [facility] INFUSION 9 [facility] THERAPY/P INC INC ROPHYLAXI S /DX 1ST TO 1 HR THERAPEUT 55742 [facility] IC 9 [facility] INJECTION INC INC IV PUSH EACH NEW DRUG TONSILLEC 282 [facility] M[facility] YESSY 9 [facility] WITHOUT INC INC ADENOIDEC YESSY [place] 96262 [facility] M[facility] INFFLUENZ 9 [facility] A A VIRUS INC INC IAADI 13088 RA[facility] M[facility] INFLUENZA 9 [facility] [place] [address] [facility] M[facility] STREPTOCO 9 [facility] [place] [address] [facility] M[facility] STREPTOCO 9 [facility] CCUS INC INC GROUP A RADEX 96872 [place] SHEREEN, SHOULDER 8 MEDICAL ANDRES P COMPLETE IMAGING MINIMUM 2 ASSOCIATE VIEWS S APPLICATI 54360 [place] BLISS LONG 8 [facility] ARM CORPORATI SPLINT ON SHOULDER HAND PERCUTANE 54363 HOOD [place] OUS TESTS 8 LIZZETTE B LIZZETTE B W/ALLERGE JOY EXTRACTS MPSV4 54282 DHS/CO RAFI VACCINE 8 [facility] [id number] BANK ACCT SUBQ USE 1 VISN [id number] YO, YO, PLANO 8 PRABHJOT A PRABHJOT A TO+/-4.00 D SPHER 0.12-2.00 D CYL EA FRAMES V2020 SANAZ YO PURCHASES 8 PRABHJOT A PRABHJOT A RPR&REFIT 65068 SANAZ YO G 8 PRABHJOT A PRABHJOT A SPECTACLE S EXCEPT APHAKIA Encounters Encounter Start End Date Code Location Performer Type Date HOSPITAL RAFI [place] [facility] T OFFICE 24430 [facility] 7 7 PHYSICIAN T NEW 20 S GROUP MINUTES HOSPITAL RAFI - 7 7 [facility] OUTPATIEN INC T HOSPITAL RAFI - 7 7 [facility] OUTPATIEN INC T EMERGENCY 08753 [facility] PAO 7 7 PHYSICIAN DEPARTMEN S, [facility] T VISIT HIGH/URGE NT SEVERITY EMERGENCY 53947 [facility] 7 7 [facility] DEPARTMEN INC T VISIT LOW/MODER SEVERITY HOSPITAL [facility] - 7 7 [facility] T [facility] 46120 [facility] T VISIT 5 INC MINUTES OFFICE 53618 [facility] [place] 7 7 N URGENT T VISIT CARE 15 MINUTES OFFICE 98786 [facility] 7 7 DISTRICT T NEW 20 HLTH DEPT MINUT[facility] EMERGENCY 76883 [facility] 6 6 [place] [facility] NIRANJAN T VISIT SERV HIGH/URGE NT SEVERITY HOSPITAL [facility] - 6 6 N OUTPATIEN COMMUNTIY T HOSPITA OFFICE 43035 [facility] 6 6 N URGENT ABD T NEW 30 CARE MINUTES HOSPITAL [facility] - 6 6 N OUTPATIEN COMMUNTIY T HOSPITA EMERGENCY 37688 [facility] 6 6 N DEPARTMEN COMMUNTIY T VISIT HOSPITA LOW/MODER SEVERITY EMERGENCY 66212 [facility] 6 6 [place] KAYLI DEPARTMEN EMERGENCY T VISIT PHYS MODERATE SEVERITY OFFICE 02342 [facility] OUTPATIEN 6 6 T VISIT 15 MINUTES EMERGENCY 57265 [facility] 6 6 N DEPARTMEN COMMUNTIY T VISIT HOSPITA HIGH/URGE NT SEVERITY HOSPITAL [facility] - 6 6 N OUTPATIEN COMMUNTIY T HOSPITA OFFICE 07691 [facility] 6 6 [place] ION ORTHOPAED NEW/ESTAB ICS PLC PATIENT 40 MIN HOSPITAL [facility] - 6 6 N OUTPATIEN COMMUNTIY T HOSPITA [facility]OSPITAL [facility] - 6 6 N OUTPATIEN COMMUNTIY T HOSPITA EMERGENCY 79262 [facility] 6 6 N DEPARTMEN COMMUNTIY T VISIT HOSPITA MODERATE SEVERITY EMERGENCY 16916 [facility] 6 6 [place] AQUINO DEPARTMEN EMERGENCY T VISIT SERV HIGH/URGE NT SEVERITY EMERGENCY 73358 [facility] 6 6 [place] DEPARTMEN EMERGENCY T VISIT PHYS HIGH/URGE NT SEVERITY EMERGENCY 26913 [facility] 6 6 N DEPARTMEN COMMUNTIY T VISIT HOSPITA MODERATE SEVERITY HOSPITAL [facility] - 6 6 N OUTPATIEN COMMUNTIY T HOSPITA [facility]OSPITAL [facility] - 6 6 N OUTPATIEN COMMUNTIY T HOSPITA EMERGENCY 22837 [facility] 6 6 N DEPARTMEN COMMUNTIY T VISIT HOSPITA MODERATE SEVERITY EMERGENCY 47505 [facility] 6 6 [place] KAYLI DEPARTMEN EMERGENCY T VISIT PHYSI HIGH/URGE NT SEVERITY EMERGENCY 12515 [facility] 6 6 N DEPARTMEN COMMUNTIY T VISIT HOSPITA LIMITED/M INOR [facility] - 6 6 N [facility] 47535 [facility] 5 5 N DEPARTMEN COMMUNTIY [facility] LOW/MODER SEVERITY EMERGENCY 56267 [facility] 5 5 [place] - [facility] EMERGENCY PAT T VISIT PHYS MODERATE SEVERITY HOSPITAL [facility] - 5 5 N [facility] 5 [facility] INPATIENT INC OFFICE 00626 [facility] OUT[facility] 5 5 PHYSICIAN FEDERICO T VISIT S GROUP 15 MINUTES HOSPITAL RAFI - 5 5 [facility] OUTPATIEN INC T OFFICE 90349 [facility] 5 5 PHYSICIAN FEDERICO T VISIT S GROUP 15 MINUTES HOSPITAL RAFI - 5 5 [facility] OUTPATIEN INC HOSPITAL RAFI [facility] 5 5 [facility] OUTPATIEN INC T OFFICE 52533 [facility] OUT[facility] 5 5 PHYSICIAN FEDERICO T VISIT S GROUP 15 MINUTES OFFICE 97184 [facility] OUT[facility] 5 5 PHYSICIAN FEDERICO T VISIT S GROUP 15 MINUTES OFFICE 02039 [facility] OUT[facility] 5 5 PHYSICIAN FEDERICO T VISIT S GROUP 15 MINUTES OFFICE 01098 [facility] OUT[facility] 5 5 PHYSICIAN FEDERICO T VISIT S GROUP 15 MINUTES OFFICE 02474 [facility] OUTPATIEN 5 5 PHYSICIAN FEDERICO T VISIT S GROUP 15 MINUTES HOSPITAL RAFI - 5 5 [facility] OUTPATIEN INC [facility] RAFI - 5 5 [facility] OUTPATIEN INC T OFFICE 81902 [facility] 5 5 PHYSICIAN FEDERICO T VISIT S GROUP 15 MINUTES HOSPITAL RAFI - 5 5 [facility] OUTPATIEN INC T OFFICE 74711 [facility] OUT[facility] 5 5 PHYSICIAN FEDERICO T VISIT S GROUP 15 MINUTES EMERGENCY 30891 SAURABH MARTINEZEY 5 5 PHYSICIAN [facility] S, [facility] T VISIT HIGH/URGE NT SEVERITY EMERGENCY 25575 SAURABH PAO 5 5 PHYSICIAN [facility] T VISIT HIGH/URGE NT SEVERITY OFFICE 02318 [facility] OUTPATIEN 5 5 PHYSICIAN FEDERICO T VISIT S GROUP 15 MINUTES OFFICE 74358 [facility] OUT[facility] 5 5 PHYSICIAN FEDERICO T VISIT S GROUP 15 MINUTES EMERGENCY 91517 RAFI MORALES 5 5 [facility] T VISIT P LOW/MODER SEVERITY HOSPITAL RAFI - 5 5 [facility] OUTPATIEN INC HOSPITAL RAFI [facility] 5 5 [facility] OUTPATIEN [facility] RAFI - 5 5 [facility] OUTPATIEN INC T OFFICE 77568 [place] B[facility] OUTPATIEN 5 5 [facility] T VISIT INTERNAL 15 MED MINUTES OFFICE 77525 [place] LEGER OUTPATIEN 4 4 [place] T VISIT INTERNAL 15 MED MINUTES OFFICE 41791 [place] [facility] OUTPATIEN 4 4 [place] T VISIT INTERNAL 15 MED MINUTES HOSPITAL RAFI - 4 4 [facility] OUTPATIEN INC T OFFICE 22937 [place] HARD[place] ANT OUTPATIEN 4 4 MEDICAL T VISIT SERV 25 FOUNDATIO MINUTES [facility] RAFI - 4 4 [facility] OUTPATIEN INC T OFFICE 32757 [place] USERY AND OUTPATIEN 4 4 [place] T VISIT INTERNAL 15 MED MINUTES HOSPITAL RAFI - 4 4 [facility] OUTPATIEN INC T HOSPITAL RAFI - 4 4 [facility] OUTPATIEN INC T HOSPITAL RAFI [facility] 4 4 [facility] OUTPATIEN INC T OFFICE 56818 [place] USERY AND OUTPATIEN 4 4 [place] T VISIT INTERNAL 15 MED MINUTES EMERGENCY 06334 [facility] 4 4 [place] [facility] DEPARTMEN EMERGENCY T VISIT PHYS HIGH/URGE NT SEVERITY OFFICE 94477 [place] BESSON OUTPATIEN 4 4 [facility] T VISIT INTERNAL 15 MED MINUTES HOSPITAL RAFI - 4 4 [facility] OUTPATIEN INC T EMERGENCY 50582 [facility] 4 4 [place] DEPARTMEN EMERGENCY T VISIT PHYS HIGH/URGE NT SEVERITY EMERGENCY 55668 [facility] ALMA 4 4 [place] [facility] DEPARTMEN EMERGENCY T VISIT PHYS HIGH/URGE NT SEVERITY EMERGENCY 17289 PAO LEW 4 4 BRANDEN [facility] DEPARTMEN T VISIT MODERATE SEVERITY HOSPITAL RAFI - 4 4 [facility] OUTPATIEN INC T EMERGENCY 13854 PAO LEW 4 4 BRANDEN [facility] DEPARTMEN T VISIT HIGH/URGE NT SEVERITY EMERGENCY 87053 [facility] 4 4 [facility] LOW/MODER SEVERITY EMERGENCY 37370 [facility]FARIS 4 4 [facility] DEPARTMEN T VISIT MODERATE SEVERITY OFFICE 21678 USERY AND USERY AND OUTPATIEN 4 4 T VISIT 15 MINUTES EMERGENCY 55978 OZOR MAR VICKYOR MAR 4 4 DEPARTMEN T VISIT MODERATE SEVERITY EMERGENCY 61501 AMAURY LEW 4 4 [place] [facility] DEPARTMEN EMERGENCY T VISIT PHYS MODERATE SEVERITY OFFICE 03797 ANDRADE ANDRADE OUTPATIEN 4 4 [facility] FEDERICO T VISIT 15 MINUTES OFFICE 46556 LUPE SOTOE OUTPATIEN 4 4 [facility] T VISIT 15 MINUTES OFFICE 87851 USERY AND USERY AND OUTPATIEN 4 4 T VISIT 25 MINUTES Emergency ZENA Lew MD (ER) 4 23:27 4 00:52 [facility] EMERGENCY 19713 RAFI 4 4 [facility] HIGH/URGE NT SEVERITY EMERGENCY 88669 PAO LEW DEPT 4 4 BRANDEN BRANDEN VISIT HIGH SEVERITY& THREAT [facility] RAFI - 4 4 [facility] OUTPATIEN [facility] RAFI - 4 4 [facility] OUTPATIEN [facility] Emergency ZENA Moreland MD (ER) 4 01:26 4 02:54 [facility] RAFI - 4 4 [facility] OUTPATIEN [facility] EMERGENCY 13480 LOLITA BRIONES 4 4 DEPARTMEN T VISIT HIGH/URGE NT SEVERITY OFFICE 52683 [facility] BLACKBURN OUTPATIEN 4 4 NIRANJAN NIRANJAN T VISIT 15 MINUTES EMERGENCY 47895 RAFI 4 4 [facility] LOW/MODER SEVERITY OFFICE 31527 [facility] RIVERAENCE OUTPATIEN 4 4 NIRANJAN NIRANJAN T VISIT 15 MINUTES OFFICE 44049 ARELI SINGLETON OUTPATIEN 3 3 CINDY CINDY T VISIT 15 MINUTES HOSPITAL RAFI - 3 3 [facility] OUTPATIEN INC T OFFICE 14547 ALLRAN JR ALLRAN JR OUTPATIEN 3 3 PABLO PABLO T VISIT 25 MINUTES OFFICE 13456 [facility] [place]ACK[place] OUTPATIEN 3 3 NIRANJAN NIRANJAN T VISIT 15 MINUTES OFFICE 11737 DASHAWNLATANYA TAMEZ SIERRA OUTPATIEN 3 3 T NEW 20 MINUTES OFFICE 07491 ARELI SINGLETON OUTPATIEN 3 3 CINDY CINDY T VISIT 25 MINUTES HOSPITAL RAFI - 3 3 [facility] OUTPATIEN INC T Emergency ZENA Rafi Abreu (ER) 3 18:41 3 19:02 [facility] RAFI - 3 3 [facility] OUTPATIEN INC T EMERGENCY 36179 RAFI 3 3 [facility] DEPARTMEN INC T VISIT LOW/MODER SEVERITY EMERGENCY 70589 PAO MARTINEZEY 3 3 BRANDEN BRANDEN DEPARTMEN T VISIT MODERATE SEVERITY OFFICE 64820 BERE BERE OUTPATIEN 3 3 NIRANJAN NIRANJAN T VISIT 15 MINUTES HOSPITAL RAFI - 3 3 [facility] OUTPATIEN INC T EMERGENCY 56493 PAO LEW 3 3 BRANDEN BRANDEN DEPARTMEN T VISIT MODERATE SEVERITY EMERGENCY 72726 RAFI 3 3 [facility] DEPARTMEN INC T VISIT LOW/MODER SEVERITY OFFICE 53813 BERE BERE OUTPATIEN 3 3 NIRANJAN NIRANJAN T VISIT 15 MINUTES HOSPITAL RAFI - 2 2 [facility] OUTPATIEN INC T OFFICE 27256 BERE BERE OUTPATIEN 2 2 NIRANJAN NIRANJAN T VISIT 15 MINUTES HOSPITAL RAFI - 2 2 [facility] OUTPATIEN INC T OFFICE 04532 ARELI SINGLETON OUTPATIEN 2 2 CINDY CINDY T VISIT 15 MINUTES OFFICE 20725 SCIFRES SCIFRES OUTPATIEN 2 2 ANG ANG T VISIT 10 MINUTES OFFICE 04566 JUDY KIM OUTPATIEN 2 2 NAN NAN T VISIT 15 MINUTES HOSPITAL RAFI - 2 2 [facility] OUTPATIEN INC T EMERGENCY 88528 ALINE ABREU DEPT 2 2 III LUZ III LUZ VISIT HIGH SEVERITY& THREAT FUNCJ EMERGENCY 69215 RAFI 2 2 [facility] DEPARTMEN INC T VISIT MODERATE SEVERITY OFFICE 00103 RAFI MCKEE OUTPATIEN 2 2 [facility] MINUTES HEAL HEAL OFFICE 81388 BERE BLACKBURN OUTPATIEN 2 2 NIRANJAN NIRANJAN T VISIT 15 MINUTES OFFICE 80800 LUPE ANDRADE OUTPATIEN 2 2 FEDERICO FEDERICO T VISIT 15 MINUTES HOSPITAL RAFI - 2 2 [facility] OUTPATIEN INC T EMERGENCY 16877 JOSEPH BRIONES 2 2 EMERGENCY DEPARTMEN SERVICES T VISIT HIGH/URGE NT SEVERITY EMERGENCY 00209 RAFI 2 2 [facility] DEPARTMEN INC T VISIT LOW/MODER SEVERITY OFFICE 41173 MCKEMIE MCKEMIE OUTPATIEN 2 2 JR LUZ JR LUZ T VISIT 15 MINUTES OFFICE 57200 LUPE ANDRADE OUTPATIEN 2 2 FEDERICO FEDERICO T VISIT 15 MINUTES HOSPITAL RAFI - 2 2 [facility] OUTPATIEN INC T OFFICE 72034 LUPE ANDRADE OUTPATIEN 2 2 FEDERICO FEDERICO T VISIT 15 MINUTES OFFICE 38045 HOOD HOOD OUTPATIEN 2 2 LIZZETTE LIZZETTE T NEW 45 MINUTES HOSPITAL RAFI - 2 2 [facility] OUTPATIEN INC T HOSPITAL RAFI - 2 2 [facility] INPATIENT INC OFFICE 88908 BERE BLACKBURN OUTPATIEN 2 2 NIRANJAN NIRANJAN T VISIT 15 MINUTES EMERGENCY 35274 ALINE ABREU DEPT 2 2 III LUZ III LUZ VISIT HIGH SEVERITY& THREAT FUNCJ EMERGENCY 77195 RAFI 2 2 [facility] DEPARTMEN INC T VISIT HIGH/URGE NT SEVERITY HOSPITAL RAFI - 2 2 [facility] OUTPATIEN INC T HOSPITAL RAFI - 2 2 [facility] OUTPATIEN INC T HOSPITAL RAFI - 2 2 [facility] INPATIENT INC OFFICE 77721 LUPE ANDRADE OUTPATIEN 2 2 FEDERICO FEDERICO T VISIT 15 MINUTES HOSPITAL RAFI - 2 2 [facility] OUTPATIEN [facility] T OFFICE 50168 LUPE ANDRADE OUTPATIEN 2 2 FEDERICO FEDERICO T VISIT 15 MINUTES OFFICE 19571 LUPE ANDRADE OUTPATIEN 2 2 FEDERICO FEDERICO T VISIT 15 MINUTES EMERGENCY 19998 [facility] 2 2 [facility] V[facility]M [facility] RAFI - 2 2 [facility] OUTPATIEN [facility] T EMERGENCY [address] [facility] 2 2 [facility] HIGH/URGE NT SEVERITY OFFICE 38933 LUPE ANDRADE OUTPATIEN 2 2 FEDERICO FEDERICO T VISIT 15 MINUTES EMERGENCY 70946 JOSEPH LEW 2 2 EMERGENCY [facility] SERVICES T VISIT MODERATE SEVERITY EMERGENCY 60930 RAFI 2 2 [facility] DEPARTMEN INC T VISIT LOW/MODER SEVERITY HOSPITAL RAFI - 2 2 [facility] OUTPATIEN [facility] T OFFICE 15225 LUPE ANDRADE OUTPATIEN 2 2 FEDERICO FEDERICO T VISIT 15 MINUTES OFFICE 23662 JUDY KIM OUTPATIEN 2 2 NAN NAN T VISIT 15 MINUTES HOSPITAL RAFI - 2 2 [facility] OUTPATIEN INC T OFFICE 48558 ANDRADE ANDRADE OUTPATIEN 2 2 FEDERICO FEDERICO T VISIT 15 MINUTES HOSPITAL RAFI - 2 2 [facility] OUTPATIEN INC T OFFICE 13596 ANRDADE ANDRADE OUTPATIEN 2 2 FEDERICO FEDERICO T VISIT 15 MINUTES OFFICE 92081 ANDRADE ANDRADE OUTPATIEN 2 2 [facility] FEDERICO T VISIT 5 MINUTES HOSPITAL RAFI - 2 2 [facility] OUTPATIEN INC T OFFICE 49415 ANDRADE ANDRADE OUTPATIEN 2 2 FEDERICO FEDERICO T VISIT 15 MINUTES OFFICE 04434 [facility]SON GRIGGS OUTPATIEN 2 2 LUZ LUZ T VISIT 15 MINUTES OFFICE 31757 LUPE SOTOE OUTPATIEN 1 1 FEDERICO FEDERICO T VISIT 15 MINUTES HOSPITAL RAFI - 1 1 [facility] OUTPATIEN INC T HOSPITAL RAFI - 1 1 [facility] OUTPATIEN INC T EMERGENCY 37815 PAO MARTINEZEY 1 1 [facility] T VISIT HIGH/URGE NT SEVERITY EMERGENCY 96767 RAFI 1 1 [facility] DEPARTMEN INC T VISIT LOW/MODER SEVERITY OFFICE 26236 [facility] OUTPATI[facility] 1 1 [facility] T VISIT CLINIC OF 15 HECTOR MINUTES EMERGENCY 86763 PAO MARTINEZEY 1 1 [facility] T VISIT HIGH/URGE NT SEVERITY EMERGENCY 11015 RAFI 1 1 [facility] DEPARTMEN INC T VISIT LOW/MODER SEVERITY HOSPITAL RAFI - 1 1 [facility] OUTPATIEN INC T OFFICE 03716 ARELI SINGLETON OUTPATIEN 1 1 CINDY CINDY T VISIT 5 MINUTES HOSPITAL RAFI - 1 1 [facility] OUTPATIEN INC T OFFICE 68398 [facility] OUTPATIEN 1 1 [facility] T VISIT CLINIC OF 15 HECTOR MINUTES HOSPITAL RAFI - 1 1 [facility] OUTPATIEN INC T EMERGENCY 04294 RAFI 1 1 [facility] DEPARTMEN INC T VISIT LOW/MODER SEVERITY EMERGENCY 59491 JOSEPH HIGGINS ROSE 1 1 EMERGENCY DEPARTMEN SERVICES T VISIT HIGH/URGE NT SEVERITY HOSPITAL RAFI - 1 1 [facility] OUTPATIEN INC T EMERGENCY 78692 RAFI 1 1 [facility] DEPARTMEN INC T VISIT LOW/MODER SEVERITY EMERGENCY 51562 JOSEPH HIGGINS ROSE 1 1 EMERGENCY DEPARTMEN SERVICES T VISIT MODERATE SEVERITY OFFICE 60760 [place] BERE OUTPATIEN 1 1 [place] NIRANJAN T VISIT INTERNAL 10 MEDI MINUTES HOSPITAL RAFI - 1 1 [facility] OUTPATIEN INC T OFFICE 26477 [place] BERE OUTPATIEN 1 1 [place] NIRANJAN T VISIT INTERNAL 15 MEDI MINUTES OFFICE 45668 [place] BERE OUTPATIEN 1 1 [place] NIRANJAN T VISIT INTERNAL 15 MEDI MINUTES EMERGENCY 78375 JOSEPH LEW 1 1 EMERGENCY [facility] DEPARTMEN SERVICES T VISIT HIGH/URGE NT SEVERITY HOSPITAL RAFI - 1 1 [facility] OUTPATIEN INC T EMERGENCY 63361 RAFI 1 1 [facility] DEPARTMEN INC T VISIT LOW/MODER SEVERITY OFFICE 67471 [place] BERE OUTPATIEN 1 1 [place] NIRANJAN T VISIT INTERNAL 15 MEDI MINUTES EMERGENCY 98575 JOSEPH LEW 0 0 EMERGENCY [facility] DEPARTMEN SERVICES T VISIT MODERATE SEVERITY HOSPITAL RAFI - 0 0 [facility] OUTPATIEN INC T EMERGENCY 54464 JOSEPH MERLOS, DEPT 0 0 EMERGENCY [facility] VISIT SERVICES HIGH SEVERITY& ASSOCIATE THREAT S FUNJ EMERGENCY 29278 RAFI 0 0 MEM [facility] DEPARTMEN INC T VISIT LOW/MODER SEVERITY HOSPITAL RAFI - 0 0 [facility] OUTPATIEN INC T OFFICE 60316 [place] JUDY OUTPATIEN 0 0 NICHOLE MACHADO T VISIT INTERNAL 15 MEDI MINUTES OFFICE 60308 [place] MCKEMIE OUTPATIEN 0 0 NICHOLE LYON LUZ T VISIT INTERNAL 15 MED MINUTES OFFICE 82304 [place] JUDY OUTPATIEN 0 0 NICHOLE MACHADO T VISIT INTERNAL 15 MEDI MINUTES OFFICE 95948 [place] ARELI OUTPATIEN 0 0 NICHOLE Peng T VISIT INTERNAL 15 MED MINUTES EMERGENCY 54498 JOSEPH LEW, 0 0 EMERGENCY [facility] SERVICES T VISIT MODERATE ASSOCIATE SEVERITY S EMERGENCY 26285 RAFI 0 0 [facility] DEPARTMEN INC T VISIT LOW/MODER SEVERITY HOSPITAL RAFI - 0 0 [facility] OUTPATIEN INC T OFFICE 40158 [place] MCEVIMIE OUTPATIEN 9 9 NICHOLE LYON, T VISIT INTERNAL DEZNEL F 15 MED MINUTES HOSPITAL RAFI - 9 9 [facility] OUTPATIEN INC T HOSPITAL RAFI - 9 9 [facility] OUTPATIEN INC T EMERGENCY 32766 RAFI 9 9 [facility] DEPARTMEN INC T VISIT LIMITED/M INOR PROB EMERGENCY 95258 JOSEPH LEW, 9 9 EMERGENCY [facility] T VISIT MODERATE ASSOCIATE SEVERITY S HOSPITAL RAFI - 9 9 [facility] OUTPATIEN INC T OFFICE 68565 ISAI ALEX OUTPATIEN 9 9 DAWOOD Brunson T VISIT 15 MINUTES OFFICE 50610 ISAI ALEX OUTPATIEN 9 9 DAWOOD Brunson T NEW 30 MINUTES EMERGENCY 34802 JOSEPH KAPLAN, 9 9 EMERGENCY [facility] DEPARTMEN SERVICES T VISIT MODERATE ASSOCIATE SEVERITY S HOSPITAL RAFI - 9 9 [facility] OUTPATIEN INC T EMERGENCY 76264 RAFI 9 9 [facility] DEPARTMEN INC T VISIT LOW/MODER SEVERITY EMERGENCY 64950 RAFI 9 9 [facility] DEPARTMEN INC T VISIT LOW/MODER SEVERITY EMERGENCY 15518 JOSEPH MERLOS, 9 9 [facility] T VISIT MODERATE ASSOCIATE SEVERITY S HOSPITAL RAFI - 9 9 [facility] OUTPATIEN INC T EMERGENCY 33040 RAFI 9 9 [facility] DEPARTMEN INC T VISIT LOW/MODER SEVERITY EMERGENCY 63850 TRACIE LEW, [address] [facility] T VISIT ON MODERATE SEVERITY HOSPITAL RAFI - 9 9 [facility] OUTPATIEN INC T EMERGENCY 84416 TRACIE MCDANIEL, 8 8 [facility] T VISIT ON MODERATE SEVERITY EMERGENCY 77169 RAFI 8 8 [facility] DEPARTMEN INC T VISIT LOW/MODER SEVERITY HOSPITAL RAFI - 8 8 [facility] OUTPATIEN INC T OFFICE 99603 HOOD, HOOD, CONSULTAT 8 8 LIZZETTE B LIZZETTE B ION NEW/ESTAB PATIENT 40 MIN OFFICE 10318 DHS/CO RAFI OUTWILDER 8 8 HEALTH CO [facility]ALTH T [facility] 10 [facility] MINUTES BANK ACCT PERIODIC 98848 [place] ANSON PREVENTIV 8 8 Arnel VARELA JR MED EST INTERNAL DENZEL F PATIENT MED -YRS OFFICE 66963 ROLDAN TYLER 8 8 NICHOLE Peng T VISIT INTERNAL 15 MED MINUTES OFFICE 30852 SANAZ YO OUTPATIEN 8 8 PRABHJOT A PRABHJOT A T VISIT 15 MINUTES
--- OUTSIDE RECORDS SUMMARY | 2017-04-11 18:26 | External Medical Summary Rpt ---
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 93 & 8 TH MA PS C 00 07 07 00 [...] 8 TH MA PS C CE 65 06 07 00 14 7 RI 78 MA Ac FP 86 -1 -0 .0 TE 86 RT ti RO 20 7- 2- 00 79 IN ve ZI 06 20 20 AI J L 80 09 09 D 25 1 PH MA 0 AR NG MG M AN #3 TA 93 MD BL 8 ET PS C LO 00 04 07 01 [...] TH ET MA PS C 65 08 06 06 10 [...] 93 & 8 TH MA PS C KY 00 03 03 00 12 4 RI 77 MU Ac OM 60 -1 -2 0. TE 54 LL ti ET 31 5- 6- 00 04 IN ve LEAHY 58 20 20 0 AI S ZI 85 09 09 D ZAKI NE 8 PH HN AR M VC M -C #3 OD 93 EI 8 NE SY RU P LO 00 08 03 06 30 30 RI 74 CO Ac RA 78 -1 -1 .0 TE 60 MM ti TA 15 9- 2- 00 02 UN ve DI 07 20 20 AI IT NE 70 08 09 D Y 1 PH AL 10 AR LE M RG MG #3 Y 93 & TA 8 BL TH ET MA PS C 65 08 03 04 10 12 RI 74 CO Ac 16 -1 -1 0. TE 60 MM ti 20 9- 2- 00 03 UN ve 51 20 20 0 AI IT 61 08 09 D Y 0 PH AL AR LE M RG #3 Y 93 & 8 TH MA PS C CE 00 01 01 00 21 7 RI 76 GA Ac PH 09 -1 -3 .0 TE 67 IN ti AL 33 4- 0- 00 58 EY ve EX 14 20 20 AI IN 50 09 09 D PR 1 PH CH 25 AR AE 0 M L MG #3 S 93 CA 8 PS UL E LO 00 08 01 05 30 30 [...] MA PS C LO 00 08 01 04 30 30 [...] TH MA PS C LO 00 08 12 03 30 30 RI 74 CO Ac RA 78 -1 -0 .0 TE 60 MM ti TA 15 9 02 UN ve DI 07 20 20 AI IT NE 70 08 08 D Y 1 PH AL 10 AR LE M RG MG #3 Y 93 & TA 8 BL TH ET MA PS C LO 00 08 10 02 30 30 RI 74 CO Ac RA 78 -1 -2 .0 TE 60 MM ti TA 15 02 UN ve DI 07 20 20 AI IT NE 70 08 08 D Y 1 PH AL 10 AR LE M RG MG #3 Y 93 & TA 8 BL TH ET MA PS C 00 10 10 00 10 2 RI 75 WI Ac 40 -1 -2 .0 TE 34 CK ti 60 0- 3 00 92 ER ve 35 20 20 AI 70 08 08 D JE 5 PH FF AR RE M Y #3 93 8 LO 00 08 09 01 30 30 RI 74 CO Ac RA 78 -1 -2 .0 TE 60 MM ti TA 15 02 UN ve DI 07 20 20 AI IT NE 70 08 08 D Y 1 PH AL 10 AR LE M RG MG #3 Y 93 & TA 8 BL TH ET MA PS C 65 08 09 01 10 12 RI 74 CO Ac 16 -1 -2 0. TE 60 MM ti 20 03 UN ve 51 20 20 0 AI IT 61 08 08 D Y 0 PH AL AR LE M RG #3 Y 93 & 8 MA PS C 65 08 08 00 10 12 RI 74 CO Ac 16 -1 -2 0. TE 60 MM ti 20 03 UN ve 51 20 20 0 AI IT 61 08 08 D Y 0 PH AL AR LE M RG #3 Y 93 & 8 MA PS C LO 00 08 08 00 30 30 RI 74 CO Ac RA 78 -1 -2 .0 TE 60 MM ti TA 15 02 UN ve DI 07 20 20 AI IT NE 70 08 08 D Y 1 PH AL 10 AR LE M RG MG #3 Y 93 & TA 8 BL TH ET MA PS C 60 02 03 00 12 5 RI 72 No Ac 25 -1 -2 0. TE 02 t ti 80 5- 6- 00 14 Av ve 23 20 20 0 AI ai 91 08 08 D la 6 PH bl AR e M #3 93 8 TA 00 02 03 00 10 5 RI 72 No Ac PR 00 -1 -2 .0 TE 02 t [...] ACYW ER BANK -135 ACCT SUBQ USE Procedures Procedure DOS Code Location Performer Comment SLEEP STD 42447 [facility]OW [facility] HRT INC INC RATE&O2 SAT EFFORT UNATT COLLECTIO 13002 [facility] N VENOUS [facility] BLOOD INC INC VENIPUNCT URE HEPATITIS 69015 [facility] ANTIBODY INC INC HAAB HEMOGLOBI 58929 [facility] N [facility] GLYCOSY[place] [address] [facility] M[facility] THYROID 7 [facility] STIMULATI [place] [address] [facility] M[facility] THYROXINE 7 [facility] TOTAL INC INC BLOOD 38243 [facility] COUNT [facility] COMPLETE INC INC AUTO&AUTO DIFRNTL WBC HEPATITIS 61020 [facility] C [facility] ANTIBODY INC INC LIPID 45389 [facility] M[facility] PANEL [facility] INC INC COMPREHEN 80648 [facility] M[facility] SIVE 7 [facility] METABOLIC INC INC PANEL HEPATITIS 38389 [facility] B CORE 7 [facility] [place] [address] [facility] HEPATITIS 7 [facility] B INC INC SURFACE ANTIGEN URNLS DIP 76337 [facility] STICK/TAB INC INC LET REAGENT AUTO MICROSCOP Y CULTURE 99434 [facility] M[facility] BACTERIAL 7 [facility] INC INC QUANTTATI VE COLONY COUNT URINE URINE 87041 [facility] TEST INC INC VISUAL COLOR CMPRSN METHS IAADIADOO 92516 [facility] MELONIE 7 N URGENT STREPTOCO CARE CCUS GROUP A INJECTION J1050 [facility] MEDROXYPR HLTH DEPT TH DEPT OGESTERON DIGNA DIGNA E ACETATE 1 MG CONTRACEP A4269 [facility] SUPPLY HL DEPT HL DEPT SPERMICID DIGNA DIGNA E EACH CONTRACEP A4267 [facility] SUPPLY [facility] DEPT [facility] DEPT CONDOM DIGNA DIGNA MALE EACH URINE 54880 [facility] DISTRICT TEST [facility] DEPT [facility] DEPT VISUAL DIGNA DIGNA COLOR CMPRSN METHS FITTING 08062 SCIFRES SCIFRES SPECTACLE 7 S XCPT APHAKIA MONOFOCAL FRAMES V2020 SCIFRES SCIFRES PURCHASES 7 OPHTH 06912 SCIFRES SCIFRES MEDICAL 7 XM&EVAL COMPRHNSV ESTAB PT 1/> 1 VISN V2103 SCIFRES SCIFRES PLANO 7 TO+/-4.00 D SPHER 0.12-2.00 D CYL EA SCRATCH V2760 SCIFRES SCIFRES RESISTANT 7 COATING PER LENS LENS V2784 SCIFRES SCIFRES POLYCARBO 7 MIREYA OR EQUAL ANY INDEX PER LENS THERAPEUT 06475 [facility] LUPE IC 6 PHYSICIAN PROPHYLAC S GROUP TIC/DX INJECTION SUBQ/IM URINE 65306 [facility] LUPE 6 PHYSICIAN TEST S GROUP VISUAL COLOR CMPRSN METHS COMPREHEN 22892 [facility] SIVE 6 N N METABOLIC COMMUNTIY COMMUNTIY PANEL HOSPITA HOSPITA BLOOD 17605 [facility] COUNT 6 N N COMPLETE COMMUNTIY COMMUNTIY AUTO&AUTO HOSPITA HOSPITA DIFRNTL WBC URINE 77614 [facility] 6 N N TEST COMMUNTIY COMMUNTIY VISUAL HOSPITA HOSPITA COLOR CMPRSN METHS IAADIADOO 89084 [facility] MELONIE 6 N URGENT ABD STREPTOCO CARE CCUS GROUP A IAADIADOO 64553 [facility] 6 N N STREPTOCO COMMUNTIY COMMUNTIY CCUS HOSPITA HOSPITA GROUP A CUL BACT 39905 [facility] XCPT 6 N N URINE COMMUNTIY COMMUNTIY BLOOD/STO HOSPITA HOSPITA OL AEROBIC ISOL MRI 71022 [facility] SPINAL 6 CANAL ORTHOPAED LUMBAR ICS PSC W/[place] [address] [facility] HEAD/BRAI 6 N N N W/O COMMUNTIY COMMUNTIY CONTRAST HOSPITA HOSPITA MATERIAL GLUC BLD 89564 [facility] GLUC MNTR 6 N N DEV COMMUNTIY COMMUNTIY CLEARED HOSPITA HOSPITA FDA SPEC HOME USE ECG 39489 [facility] ROUTINE 6 N N ECG COMMUNTIY COMMUNTIY W/LEAST HOSPITA HOSPITA 12 LDS TRCG ONLY W/O I&R RADEX 52783 [facility] [place] [facility] SPINE 6 RADIOLOGY LUMBOSACR AL 2/3 VIEWS THERAPEUT 38541 [facility] IC 6 N N PROPHYLAC COMMUNTIY COMMUNTIY TIC/DX HOSPITA HOSPITA INJECTION SUBQ/IM INJECTION J1885 [facility] 6 N N KETOROLAC COMMUNTIY COMMUNTIY HOSPITA HOSPITA TROMETHAM INE PER 15 MG URINE 04429 [facility] 6 N N TEST COMMUNTIY COMMUNTIY VISUAL HOSPITA HOSPITA COLOR CMPRSN METHS URNLS DIP 14071 [facility] 6 N N STICK/TAB COMMUNTIY COMMUNTIY LET HOSPITA HOSPITA REAGENT AUTO MICROSCOP Y URNLS DIP 88407 [facility] 6 N N STICK/TAB COMMUNTIY COMMUNTIY LET HOSPITA HOSPITA REAGENT AUTO MICROSCOP Y URINE 77857 [facility] 6 N N TEST COMMUNTIY COMMUNTIY VISUAL HOSPITA HOSPITA COLOR CMPRSN METHS THERAPEUT 12201 [facility] LUPE IC 5 PHYSICIAN FEDERICO PROPHYLAC S GROUP TIC/DX INJECTION SUBQ/IM NEURAXIAL 91164 [facility] LABOR 5 ANESTH PHOEBE ANALG/ANE OF THE S PLND BLUE VAGINAL DELIVERY VAGINAL 89420 [facility] DELIVERY 5 ASHLEY ROY ROBBIN ONLY W/POSTPAR GREGORIO CARE DELIVERY [id number] [facility] PRODUCTS 5 [facility] OF INC INC CONCEPTIO N EXTERNAL 39334 [facility] NONSTRESS 5 [facility] TEST PARTICLE 15095 [facility] AGGLUTINA 5 [facility] TION INC INC SCREEN EACH ANTIBODY US PREG 89493 [facility] LUPE UTERUS 5 PHYSICIAN FEDERICO REAL TIME S GROUP F/U TRNSABDL PER FETUS 17342 [facility] BIOPHYSIC 5 PHYSICIAN FEDERICO AL S GROUP PROFILE W/O NON-STRES S TESTING DOPPLER 47906 [facility] VELOCIMET 5 PHYSICIAN FEDERICO RY S GROUP UMBILICAL ARTERY 72612 [facility] NONSTRESS 5 [facility] TEST INC INC URNLS DIP 29660 [facility] STICK/TAB INC INC LET REAGENT AUTO MICROSCOP Y URNLS DIP 01351 [facility] STICK/TAB INC INC LET REAGENT AUTO MICROSCOP Y FTL 34166 [facility] M[facility] FIBRONECT 5 [facility] IN INC INC CERVICOVA G SECRETION S SEMI-MARITZA 84214 [facility] M[facility] NONSTRESS 5 [facility] TEST INC INC 83185 [facility] LUPE NONSTRESS 5 PHYSICIAN FEDERICO TEST S GROUP GLUCOSE 19986 [facility] 5 PHYSICIAN PHYSICIAN GLUCOSE S GROUP S GROUP DOSE 22394 [facility] M[facility] NONSTRESS 5 [facility] TEST INC INC EVAL C/V 06259 [facility] AMNIOTIC 5 [facility] FLUID INC INC PROTEIN QUAL EA SPECIMEN URNLS DIP 51593 [facility] STICK/TAB INC INC LET REAGENT AUTO MICROSCOP Y URNLS DIP 17600 [facility] STICK/TAB INC INC LET REAGENT AUTO MICROSCOP Y GLUC BLD 59101 [facility] M[facility] GLUC MNTR 5 [facility] DEV INC INC CLEARED FDA SPEC HOME USE 51659 [facility] RAM[facility] NONSTRESS 5 ASHLEY ROY ROBBIN TEST US PREG 86536 [facility] UTERUS 5 MEDICAL TITUS AFTER 1ST IMAGING TRIMEST ASS GESTATION GONADOTRO 32041 [facility] M[facility] PIN [facility] CHORIONIC [place] [address] [facility] M[facility] ESTRIOL 5 [facility] INC INC ALPHA-FET 28950 [facility] M[facility] OPROTEIN 5 [facility] SERUM INC INC COLLECTIO 16305 [facility] M[facility] N VENOUS 5 [facility] BLOOD INC INC VENIPUNCT URE RADIOLOGI 83599 [facility] C 5 MEDICAL [place] EXAMINATI IMAGING ON CHEST ASS SINGLE VIEW FRONTAL CULTURE 76289 COMBINED COMBINED BACTERIAL 5 PHYSICIAN PHYSICIAN S LA S LA QUANTTATI VE COLONY COUNT URINE US PREG 79361 [facility] PHYSICIAN FEDER[place] REAL TIME S GROUP W/IMAGE DCMTN TRANSVAG IAADI 11313 [facility] INFFLUENZ 5 [facility] A A VIRUS INC INC IAADI 30116 [facility] M[facility] INFLUENZA 5 [facility] B VIRUS INC INC CUL BACT 39754 [facility] XCPT 5 [facility] URINE INC INC BLOOD/[place] [address] [facility] M[facility] STREPTOCO 5 [facility] CCUS INC INC GROUP A COLLECTIO 62009 [facility] N VENOUS 5 [facility] [place] [address] [facility] INSULIN 5 [facility] TOTAL INC INC CORTISOL 31523 [facility] M[facility] TOTAL 5 [place] [address] [facility] M[facility] C-PEPTIDE 5 [facility] INC INC CYANOCOBA 06904 [facility] SUELLEN 5 [facility] VITAMIN INC INC B-12 COMPREHEN 18422 [facility] M[facility] SIVE 5 [facility] METABOLIC INC INC PANEL LIPID 90888 [facility] PANEL 5 [place] [address] [facility] M[facility]EE FREE 5 [facility] [place] [address] [facility] M[facility] THYROID 5 [facility] STIMULATI INC INC NG HORMONE TSH HEMOGLOBI 00485 [facility] N 5 [facility] GLYCOSYLA INC INC KRISTINA A1C BLOOD 01179 [facility] COUNT 5 [facility] COMPLETE INC INC AUTO&AUTO DIFRNTL WBC COLLECTIO 20229 [facility] M[facility] N VENOUS 5 [facility] BLOOD INC INC VENIPUNCT URE LENS V2784 SANAZ YO CHRISTIN POLYCARBO 5 MIREYA OR EQUAL ANY INDEX PER LENS SCRATCH V2760 SANA[facility] WALLER RESISTANT 5 COATING PER LENS OPHTH 37363 SANA[facility] WALLER MEDICAL 5 XM&EVAL COMPRHNSV ESTAB PT 1/> FRAMES V2020 YOGHASSAN YO CHRISTIN PURCHASES 5 SPHERE V2100 YOGHASSAN WALLER SINGLE 5 VISION PLANO +/- 4.00 PER LENS FITTING 12051 SANAZ WALLER SPECTACLE 5 S XCPT APHAKIA MONOFOCAL IAADIADOO 30827 [facility] LE[facility] 4 [facility] STREPTOCO INTERNAL CCUS MED GROUP A IAADIADOO 43006 [facility] 4 [facility] INFLUENZA INTERNAL MED IAADIADOO 69734 [facility] LEGER 4 [facility] STREPTOCO INTERNAL CCUS MED GROUP A FLUORESCE 32217 [facility] NT [facility] NONNFCT INC INC AGT ANTB TITER EA ANTIBODY C-REACTIV 91508 [facility] E PROTEIN 4 [place] [address] [facility] M[facility] THYROID 4 [facility] STIMULATI INC INC NG HORMONE TSH GONADOTRO 01288 [facility] M[facility] PIN 4 [facility] CHORIONIC INC INC QUALITATI VE THERAPEUT 33237 RA[facility] CMKEE IC PX 1/> 4 [facility] AREAS INC INC EACH 15 MIN EXERCISES IADNA NOS 00991 [facility] AMPLIFIED INC INC PROBE TQ EACH ORGANISM INF AGENT 10430 [facility] DET 4 [facility] NUCLEIC INC INC ACID CLOSTRIDI UM AMP PROBE THERAPEUT 75737 [facility] M[facility] IC PX 1/> 4 [facility] AREAS INC INC EACH 15 MIN EXERCISES INF AGENT 15854 [facility] M[facility] DET 4 [facility] NUCLEIC INC INC ACID CLOSTRIDI UM AMP PROBE SMR PRIM 68662 [facility] M[facility] SRC 4 [facility] GRAM/GIEM INC INC SA STAIN BCT FUNGI/FREEDOM L IADNA NOS 00795 [facility] AMPLIFIED INC INC PROBE TQ EACH ORGANISM BLOOD 54911 [facility] OCCULT 4 [facility] PEROXIDAS INC INC E ACTV QUAL FECES 1-3 SPEC APPL 10531 [facility] M[facility] MODALITY 4 [facility] 1/> AREAS INC INC ELEC STIMJ UNATTENDE D APPLICATI 04240 RAFIIRAIDA MCKEE ON 4 [facility] MODALITY INC INC 1/> AREAS HOT/COLD PACKS APPL 22744 [facility] M[facility] MODALITY 4 [facility] 1/> AREAS INC INC ULTRASOUN D EA 15 MIN THERAPEUT 29440 [facility] IC PX 1/> 4 [facility] AREAS INC INC EACH 15 MIN EXERCISES THERAPEUT 18786 [facility] M[facility] IC PX 1/> 4 [facility] AREAS INC INC EACH 15 MIN EXERCISES MANUAL 11658 [facility] THERAPY 4 [facility] TQS 1/> INC INC REGIONS EACH 15 MINUTES APPL 17789 RAFI MCEKE MODALITY 4 [facility] 1/> AREAS INC INC ULTRASOUN D EA 15 MIN APPLICATI 31035 [facility] ON 4 [facility] MODALITY INC INC 1/> AREAS HOT/COLD PACKS APPL 30923 [facility] M[facility] MODALITY 4 [facility] 1/> AREAS INC INC ELEC STIMJ UNATTENDE D APPL 73248 [facility] M[facility] MODALITY 4 [facility] 1/> AREAS INC INC ELEC STIMJ UNATTENDE D APPLICATI 14340 [facility] ON 4 [facility] MODALITY INC INC 1/> AREAS HOT/COLD PACKS APPL 95652 [facility] M[facility] MODALITY 4 [facility] 1/> AREAS INC INC ULTRASOUN D EA 15 MIN MANUAL 75104 [facility] THERAPY 4 [facility] TQS 1/> INC INC REGIONS EACH 15 MINUTES THERAPEUT 83719 [facility] M[facility] IC PX 1/> 4 [facility] AREAS INC INC EACH 15 MIN EXERCISES PHYSICAL 32888 [facility] M[facility] THERAPY 4 [facility] EVALUATIO INC INC N RADEX 61134 [facility] SPINE 4 MEDICAL TITUS LUMBOSACR IMAGING AL ASS MINIMUM 4 VIEWS RADEX 06404 [place] [facility] D SPINE 4 MEDICAL THORACIC IMAGING 3 VIEWS ASS RADIOLOGI 97474 [place] [facility] C 4 MEDICAL TITUS EXAMINATI IMAGING ON ANKLE ASS 2 VIEWS CRTCHS E0114 BREG INC. BREG INC. UNDARM 4 OTH THAN WOOD PAIR PAD TIP&HNDGR IP COMPREHEN 97276 [facility] SIVE 4 [facility] METABOLIC INC INC PANEL CREATINE 59445 [facility] KINASE 4 [facility] TOTAL INC INC URNLS DIP 94336 [facility] 4 [facility] STICK/TAB INC INC LET REAGENT AUTO MICROSCOP Y URINE 92580 [facility] 4 [facility] TEST INC INC VISUAL COLOR CMPRSN METHS BLOOD 82639 [facility] COUNT 4 [facility] COMPLETE INC INC AUTO&[place] [address] [facility] HEAD/BRAI 4 [facility] N W/[place] [address] [facility] M[facility] TROPONIN 4 [facility] QUANTITAT INC INC DIAMOND CREATINE 81836 [facility] M[facility] KINASE MB 4 [facility] [place] [address] [facility] M[facility] MAXILLOFA 4 [facility] CIAL W/[place] [address] LU[facility] ANDRADE TRANSVAGI 4 FEDERICO FEDERICO NAL LENS V2784 [facility] POLYCARBO 4 MIREYA OR EQUAL ANY INDEX PER LENS SCRATCH V2760 [facility] RESISTANT 4 COATING PER LENS OPHTH 57566 [facility] MEDICAL 4 XM&EVAL COMPRHNSV ESTAB PT 1/> SPHERE V2100 [facility] SINGLE 4 VISION PLANO +/- 4.00 PER LENS FRAMES V2020 [facility] PURCHASES 4 FITTING 27403 [facility] SPECTACLE 4 [place] [address] [facility] M[facility] INFUSION 4 [facility] THERAPY/P INC INC ROPHYLAXI S /DX 1ST TO 1 HR THERAPEUT 81388 [facility] IC 4 [facility] INJECTION INC INC IV PUSH EACH NEW DRUG BLOOD 68585 [facility] COUNT 4 [facility] COMPLETE INC INC AUTO&AUTO DIFRNTL WBC GONADOTRO 42999 [facility] M[facility] PIN 4 [facility] CHORIONIC INC INC QUALITATI VE GROUND A0425 [facility] 4 AMBULANCE AMBULANCE PER SERVICE SERVICE STATUTE MILE COMPREHEN 03515 [facility] M[facility] SIVE 4 [facility] METABOLIC INC INC PANEL AMB A0427 [facility] SERVICE 4 AMBULANCE AMBULANCE ALS SERVICE SERVICE [place] [address] RA[facility] M[facility] TRANSVAGI 4 [facility] NAL INC INC GONADOTRO 52209 [facility] PIN 4 [facility] CHORIONIC INC INC QUANTITAT DIAMOND URNLS DIP 99001 [facility]EE 4 [facility] STICK/TAB INC INC LET REAGENT AUTO MICROSCOP Y COMPREHEN 24319 [facility] M[facility] SIVE 4 [facility] METABOLIC INC INC PANEL URINE 09725 [facility] M[facility]EE 4 [facility] TEST INC INC VISUAL COLOR CMPRSN METHS BLOOD 55035 [facility] COUNT 4 [facility] COMPLETE INC INC AUTO&[place] [address] RAPP RAPP SURG 3 HENRY HENRY PATHOLOGY GROSS&BRANDEN ROSCOPIC EXAM URINE 13501 [facility] 3 [facility] TEST INC INC VISUAL COLOR CMPRSN METHS COLONOSCO 40443 [facility] M[facility] PY 3 [facility] W/BIOPSY INC INC SINGLE/MU LTIPLE CHIROPRAC 30764 [facility] DASHAWN [facility] TIC 3 MANIPULAT [place] SPINAL 3-4 REGIONS THERAPEUT 53740 DASHAWN SI[facility] DASHAWN SIERRA IC PX 1/> 3 AREAS EACH 15 MIN EXERCISES APPL 83870 D[facility]HA[facility] DASHAWN [facility] MODALITY 3 1/> AREAS ELEC STIMJ UNATTENDE D APPL 50117 D[facility] DASHAWN [facility] MODALITY 3 1/> AREAS TRACTION MECHANICA L APPL 87951 D[facility] DASHAWN [facility] MODALITY 3 1/> AREAS TRACTION MECHANICA L THERAPEUT 66995 DASHAWN [facility] DASHAWN [facility]RA IC PX 1/> 3 AREAS EACH 15 MIN EXERCISES CHIROPRAC 74749 DASHAWN SI[facility]RA DASHAWN [facility]RA TIC 3 MANIPULAT [place]AM[place] SPINAL 3-4 REGIONS CHIROPRAC 44942 DASHAWN SI[facility]RA DASHAWN SIERRA TIC 3 MANIPULAT DIAMOND [place] SPINAL 3-4 REGIONS THERAPEUT 13269 DASHAWN SIERRA DASHAWN SIERRA IC PX 1/> 3 AREAS EACH 15 MIN EXERCISES APPL 63895 DASHAWN SIERRA DASHAWN SIERRA MODALITY 3 1/> AREAS ELEC STIMJ UNATTENDE D APPL 66355 DASHAWN SIERRA DASHAWN SIERRA MODALITY 3 1/> AREAS TRACTION MECHANICA L RADEX 11059 DASHAWN SIERRA DASHAWN SIERRA SPINE 3 CERVICAL 2 OR 3 [place] [address] [facility] M[facility] CLOSTRIDI 3 [facility] UM INC INC DIFFICILE TOXIN SMR PRIM 44482 [facility] SRC 3 [facility] GRAM/GIEM INC INC SA STAIN BCT FUNGI/FREEDOM L CUL BACT 01550 [facility] STOOL 3 [facility] AEROBIC INC INC ISOL SALMONELL A&SHIGELL 1 VISN V2104 SCIFRES SCIFRES PLANO-+/- 3 ANG ANG 4.00D SPHER 2.12-4.00 D CYL EA VISION V2799 SCIFRES SCIFRES ITEM OR 3 ANG ANG SERVICE MISCELLAN EOUS FRAMES V2020 SCIFRES SCIFRES PURCHASES 3 ANG ANG OPHTH 30410 SCIFRES SCIFRES MEDICAL 3 ANG ANG XM&EVAL COMPRHNSV ESTAB PT 1/> 1 VISN V2103 SCIFRES SCIFRES PLANO 3 ANG ANG TO+/-4.00 D SPHER 0.12-2.00 D CYL EA LENS V2784 SCIFRES SCIFRES POLYCARBO 3 ANG ANG MIREYA OR EQUAL ANY INDEX PER LENS DETERMINA 25371 SCIFRES SCIFRES TION 3 ANG ANG REFRACTIV E STATE CUL BACT 42413 COMBINED COMBINED XCPT 3 PHYSICIAN PHYSICIAN URINE S LA S LA BLOOD/STO OL AEROBIC ISOL URNLS DIP 36619 BERE BERE 3 NIRANJAN NIRANJAN STICK/TAB LET RGNT NON-AUT[place] W/[place] [address] [facility] M[facility] TRANSVAGI 2 [facility] NAL INC INC GONADOTRO 95140 RAFI MCKEE PIN 2 [facility] CHORIONIC INC INC QUANTITAT DIAMOND IAADIADOO 79556 ARELI SINGLETON 2 CINDY CINDY STREPTOCO CCUS GROUP A COMPREHEN 13567 [facility] SIVE 2 [facility] METABOLIC INC INC PANEL URNLS DIP 45930 [facility]EE 2 [facility] STICK/TAB INC INC LET REAGENT AUTO MICROSCOP Y URINE 24752 [facility] TEST INC [place] [address] [facility] M[facility] ABDOMEN & 2 [facility] PELVIS INC INC W/O CONTRAST MATERIAL BLOOD 21236 [facility] COUNT 2 [facility] COMPLETE INC INC AUTO&AUTO DIFRNTL WBC SUSCEPTIB 80689 COMBINED COMBINED ILITY 2 PHYSICIAN PHYSICIAN STUDY S LA S LA ANTIMICRO BIAL DISK METHOD CULTURE 80047 COMBINED COMBINED BACTERIAL 2 PHYSICIAN PHYSICIAN S LA S LA QUANTTATI VE COLONY COUNT URINE URNLS DIP 19541 LUPE ANDRADE 2 FEDERICO FEDERICO STICK/TAB LET RGNT NON-AUTO W/[place] [address] [facility] THYROID 2 [facility] STIMULATI INC INC NG HORMONE TSH THYROID 30827 [facility] HORM 2 [facility] UPTK/THYR INC [place] [address] RAFI M[facility] THYROXINE 2 [facility] TOTAL INC INC BRNCDILAT 86018 HOOD HOOD RSPSE 2 LIZZETTE LIZZETTE SPMTRY PRE&POST- BRNCDILAT ADMN PERCUTANE 23705 HOOD HOOD OUS TESTS 2 LIZZETTE LIZZETTE W/ALLERGE JOY EXTRACTS INTRACUTA 90733 HOOD HOOD NEOUS 2 LIZZETTE LIZZETTE TESTS W/ALLERGE JOY EXTRACTS INSERTION 61923 ANDRADE ANDRADE 2 FEDERICO FEDERICO INTRAUTER INE DEVICE IUD URINE 88724 LUPE ADNRADE 2 FEDERICO FEDERICO TEST VISUAL COLOR CMPRSN [place] HEPATIC 91044 [facility] FUNCTION 2 [facility] PANEL INC INC CYTP C/V 18097 PATHOLOGY PICKLESIM AUTO THIN 2 & ER JR TONY LYR CYTOLOGY PREPJ SCR LAB MNL RESCR [facility] 29889 MCKEMIE MCKEMIE DISCHARGE 2 JR LUZ JR LUZ DAY MANAGEMEN T 30 MIN/< LAPS SURG 70197 ALLSVEN JR ALLRAN JR 2 PABLO PABLO CHOLECYST ECTOMY W/CHOLANG IOGRAPHY SBSQ 57998 [facility] 2 CINDY CINDY CARE/DAY 25 MINUTES CHOLANGIO 01623 [place] GRAPHY&/P 2 MEDICAL TITUS ANCREATOG IMAGING QUAN ASS NTRAOP RS&I INITIAL 13337 HARDIK ANT HARDIK ANT INPATIENT 2 CONSULT NEW/ESTAB PT 80 MIN LEVEL III 70215 PATHOLOGY JOSEPH SURG 2 & BRI PATHOLOGY CYTOLOGY LAB GROSS&BRANDEN ROSCOPIC EXAM ANES 32954 [facility] 2 ANESTH ANESTH TONEAL OF THE OF THE UPPER BLUE [place] W/[place] [address] [place] ABDOMINAL 2 MEDICAL TITUS REAL IMAGING TIME ASS W/IMAGE LIMITED INITIAL 09499 [facility] 2 CINDY CINDY CARE/DAY 50 MINUTES LAPAROSCO 5123 RAFI MCKEE PIC 2 [facility] CHOLECYST INC INC ECTOMY INTRAOPER 8753 RAFI MCKEE ATIVE 2 [facility] CHOLANGIO INC INC GRAM RADIOLOGI 26744 [place] C 2 MEDICAL TITUS EXAMINATI IMAGING ON CHEST ASS SING[place] FRONTAL ECG 34423 RADHA GARCIA JR ROUTINE 2 DWI DWI ECG W/LEAST 12 LDS I&R ONLY RADIOLOGI 36215 [place] C EXAM 2 MEDICAL TITUS CHEST 2 IMAGING VIEWS ASS FRONTAL&L ATERAL URNLS DIP 56304 LUPE ANDRADE 2 [facility] FEDER[facility] STICK/TAB LET RGNT NON-AUTO W/O MICRSCP COMPREHEN 91072 [facility] M[facility]EE SIVE 2 [facility] METABOLIC INC INC PANEL URNLS DIP 55754 [facility] MCKEE 2 [facility] STICK/TAB INC [place] [address] RAFI MCKEE INFUSION 2 [facility] HYDRATION INC INC INITIAL 31 MIN-1 HOUR BLOOD 74495 [facility] MCKEE COUNT 2 [facility] COMPLETE INC INC AUTO&AUTO DIFRNTL WBC SUSCEPTIB 04608 [facility] MCKEE ILITY 2 [facility] STUDY INC INC ANTIMICRO BIAL DISK METHOD URNLS DIP 86442 [facility] MCKEE 2 [facility] STICK/TAB INC INC LET REAGENT AUTO MICROSCOP Y CULTURE 58629 [facility]FI MCKEE BACTERIAL 2 [facility] INC INC QUANTTATI VE COLONY COUNT URINE CULTURE 02991 RAFI MCKEE BCT 2 [facility] ISOL&PRSM INC INC PTV ID ISOLATE EA URINE NEURAXIAL 71179 [facility] LABOR 2 ANESTH PHOEBE ANALG/ANE OF THE S PLND BLUE VAGINAL DELIVERY VAGINAL 59186 LUPE ANDRADE DELIVERY 2 FEDERICO FEDERICO ONLY W/POSTPAR GREGORIO CARE REPAIR OF 7569 RAFI MCKEE OTHER 2 [facility] CURRENT INC INC OBSTETRIC LACERATIO N 45664 RAFI MCKEE NONSTRESS 2 [facility] TEST INC INC URNLS DIP 55272 [facility]FI MCKEE 2 [facility] STICK/TAB INC INC LET REAGENT AUTO MICROSCOP Y URNLS DIP 95759 [facility] MCKEE 2 [facility] STICK/TAB INC INC LET REAGENT AUTO MICROSCOP Y CULTURE 77401 RAFI MCKEE BACTERIAL 2 [facility] INC INC QUANTTATI VE COLONY COUNT URINE BLOOD 71094 RAFI MCKEE COUNT 2 [facility] COMPLETE INC INC AUTO&AUTO DIFRNTL WBC 45454 RA[facility] MCKEE NONSTRESS 2 [facility] TEST INC INC CUL BACT 93902 COMBINED COMBINED XCPT 2 PHYSICIAN PHYSICIAN URINE S LA S LA BLOOD/STO OL AEROBIC ISOL 43252 LUPE ANDRADE BIOPHYSIC 2 FEDER[facility] FEDERICO AL PROFILE W/O NON-STRES S TESTING US PREG 76903 LUPE ANDRADE UTERUS 2 [facility] FEDERICO REAL TIME F/U TRNSABDL PER FETUS DOPPLER 86052 LUPE ANDRADE VELOCIMET 2 [facility] FED[facility] RY UMBILICAL ARTERY 23415 [facility] MCKEE NONSTRESS 2 [facility] TEST INC INC URNLS DIP 81236 RAFI KOENIGON 2 [facility] STICK/TAB INC INC LET REAGENT AUTO MICROSCOP Y FTL 16080 RAFI MCKEE FIBRONECT 2 [facility] IN INC INC CERVICOVA G SECRETION S SEMI-MARITZA GLUCOSE 14169 RAFI KOENIGON TOLERANCE 2 [facility] EA ADDL INC INC BEYOND 3 SPECIMENS GLUCOSE 15629 RAFI MCKEE TOLERANCE 2 [facility] TEST GTT INC INC 3 SPECIMENS URNLS DIP 73131 RAFI KOENIGON 2 [facility] STICK/TAB INC INC LET RGNT NON-AUTO W/O MICRSCP GLUCOSE 13262 LUPE ANDRADE TOLERANCE 2 FEDERICO FEDERICO TEST GTT 3 SPECIMENS FITTING 82682 YO CHRISTIN MALDONADONES CHRISTIN SPECTACLE 2 S XCPT APHAKIA MONOFOCAL 1 VISN V2104 SANZA YO CHRISTIN PLANO-+/- 2 4.00D SPHER 2.12-4.00 D CYL EA FRAMES V2020 SANAZ YO CHRISTIN PURCHASES 2 OPHTH 26796 SANAZ YO CHRISTIN MEDICAL 2 XM&EVAL COMPRHNSV ESTAB PT 1/> DETERMINA 68702 SANAZ YO CHRISTIN TION 2 REFRACTIV E STATE 1 VISN V2103 SANAZ YO CHRISTIN PLANO 2 TO+/-4.00 D SPHER 0.12-2.[place] [address] RAFI RAFI NONSTRESS 2 [facility] TEST INC INC OBSERVATI 25624 HARPEL HARPEL ON/INPATI 2 [facility] 55 MINUTES CUL BACT 59192 COMBINED COMBINED XCPT 1 PHYSICIAN PHYSICIAN URINE S LA S LA BLOOD/STO OL AEROBIC ISOL EVAL C/V 68945 RAFI MCKEE AMNIOTIC 1 [facility] FLUID INC INC PROTEIN QUAL EA SPECIMEN 96366 RAFI MCKEE NONSTRESS 1 [facility] TEST INC INC OBSERVATI 93626 RUSS RAMIREZ ON/INPATI 1 ASHLEY SIEGEL [facility] CARE 55 MINUTES US PREG 20531 WOMEN'S ANDRADE UTERUS 1 [facility] [place] [address] RAFI MCKEE STREPTOCO 1 [facility] CCUS INC INC GROUP A IAADI 60749 RAFI MCKEE INFLUENZA 1 [facility] B VIRUS INC INC IAADI 76969 RAFI MCKEE INFFLUENZ 1 [facility] A A VIRUS INC INC URNLS DIP 60061 [facility] MCKEE 1 [facility] STICK/TAB INC INC LET REAGENT AUTO MICROSCOP Y GONADOTRO 46618 RAFI MCKEE PIN 1 [facility] CHORIONIC INC INC QUANTITAT DIAMOND ALPHA-FET 38403 RAFI MCKEE OPROTEIN 1 [facility] [place] [address] RAFI MCKEE ESTRIOL 1 [facility] INC INC URNLS DIP 90018 RAFI MCKEE 1 [facility] STICK/TAB INC INC LET REAGENT AUTO MICROSCOP Y URINE 28528 [facility] MCKEE 1 [facility] TEST INC INC VISUAL COLOR CMPRSN METHS EXCISION 01951 JOSEPH HIGGINS ROSE NAIL 1 EMERGENCY MATRIX SERVICES PERMANENT REMOVAL REMOVAL 8623 RAFI MCKEE OF NAIL 1 [facility] NAILBED INC INC OR NAIL FOLD US PREG 73117 WOMEN'S ANDRADE UTERUS 1 [facility] REAL TIME CLINIC OF W/IMAGE HECTOR DCMTN TRANSVAG CYTP C/V 45445 PATHOLOGY PATHOLOGY AUTO THIN 1 & & LYR CYTOLOGY CYTOLOGY PREPJ SCR LAB LAB MNL RESCR PHYS MOLEC 40389 MOLECULAR MOLECULAR ISOL/XTRJ 1 HP PATHOLOGY PATHOLOGY NUCLEIC LAB NETW LAB NETW ACID EA TYPE MOLECULAR 27855 MOLECULAR MOLECULAR DX AMP 1 TARGET PATHOLOGY PATHOLOGY MULTIPLEX LAB NETW LAB NETW EA ADDL SEQ MOLEC 72387 MOLECULAR MOLECULAR SEP&ID HI 1 RESOLU PATHOLOGY PATHOLOGY TQ EACH LAB NETW LAB NETW NUCLEIC ACID PREP IADNA 25996 PATHOLOGY PATHOLOGY NEISSERIA 1 & & CYTOLOGY CYTOLOGY GONORRHOE LAB LAB AE AMPLIFIED PROBE TQ IADNA 53578 PATHOLOGY PATHOLOGY CHLAMYDIA 1 & & CYTOLOGY CYTOLOGY TRACHOMAT LAB LAB IS AMPLIFIED PROBE TQ MOLECULAR 35756 MOLECULAR MOLECULAR DX AMP 1 TARGET PATHOLOGY PATHOLOGY MULTIPLEX LAB NETW LAB NETW 1ST 2 SEQ MOLECULAR 27079 MOLECULAR MOLECULAR 1 DIAGNOSTI PATHOLOGY PATHOLOGY CS LAB NETW LAB NETW INTERPRET ATION & REPORT MUTATION 43517 MOLECULAR MOLECULAR ID 1 ENZYMATIC PATHOLOGY PATHOLOGY LAB NETW LAB NETW LIG/PRIME R XTN 1 SGM EA GONADOTRO 53559 RAFI MCKEE PIN 1 [facility] CHORIONIC INC INC QUANTITAT DIAMOND OPHTH 62880 BOBBY MCCULLOUGHDanish ROSALES TERELL MEDICAL 1 XM&EVAL COMPRHNSV ESTAB PT 1/> SPHERE V2100 BOBBY FIGUEREDO SINGLE 1 VISION PLANO +/- 4.00 PER LENS FRAMES V2020 BOBBY MCCULLOUGHA PURCHASES 1 FITTING 77558 BOBBY FIGUEREDO SPECTACLE 1 S XCPT APHAKIA MONOFOCAL URNLS DIP 61106 [facility] MCKEE 1 [facility] STICK/TAB INC INC LET REAGENT AUTO MICROSCOP Y URINE 46671 [facility] MCKEE 1 [facility] TEST INC INC [place] [address] RAFI MCKEE STREPTOCO 0 [facility] [place] [address] [facility], HEAD/BRAI 0 MEDICAL ANDRES P N W/O IMAGING CONTRAST ASSOCIATE MATERIAL S 3D 56037 [facility], RENDERING 0 MEDICAL ANDRES P W/INTERP IMAGING & ASSOCIATE POSTPROCE S SS SUPERVISI ON RADIOLOGI 99025 [facility] HANNA, C 0 MEDICAL ROLAND EXAMINATI IMAGING ON ANKLE ASSOCIATE 2 VIEWS S RADEX 54853 SARAVANAN HANNA, ANKLE 0 MEDICAL ROLAND COMPLETE IMAGING MINIMUM 3 [place] [address] RAFI MCKEE STREPTOCO 9 [facility] CCUS INC INC GROUP A IAADI 32865 RAFI MCKEE INFLUENZA 9 [facility] B VIRUS INC INC IAADI 75111 RAFI MCKEE INFFLUENZ 9 [facility] A A VIRUS INC INC TONSILLEC 282 RAFI MCKEE YESSY 9 [facility] WITHOUT INC INC ADENOIDEC YESSY LEVEL III 56047 PATHOLOGY PATHOLOGY SURG 9 & & PATHOLOGY CYTOLOGY CYTOLOGY LAB LAB GROSS&BRANDEN ROSCOPIC EXAM THERAPEUT 47152 RAFI MCKEE IC 9 [facility] INJECTION [place] [address] RAFI MCKEE INFUSION 9 [facility] THERAPY/P INC INC ROPHYLAXI S /DX 1ST TO 1 HR BLOOD 32092 RAFI MCKEE COUNT 9 [facility] HEMATOCRI INC INC T BLOOD 98269 RAFI MCKEE COUNT 9 [facility] HEMOGLOBI INC INC N GONADOTRO 15829 RAFI MCKEE PIN 9 [facility] [place] [address] RAFI MCKEE INFUSION 9 [facility] THERAPY INC INC PROPHYLAX IS/DX EA HOUR TONSILLEC 88659 ISAI ALEX TOMY 9 DAWOOD Brunson PRIMARY/S ECONDARY AGE 12/> ANESTHESI 77487 [facility] Danish TRIVEDI 9 ANESTH KHALIDA F INTRAORAL OF THE [place] [address] RAFI MCKEE STREPTOCO 9 [facility] CCUS INC INC GROUP A IAADI 51016 RAFI MCKEE INFFLUENZ 9 [facility] A A VIRUS INC INC IAADI 80479 RAFI MCKEE INFLUENZA 9 [facility] [place] [address] RAFI MCKEE STREPTOCO 9 [facility] CCUS INC INC GROUP A RADEX 67459 RAFI MCKEE SHOULDER 8 [facility] COMPLETE INC INC MINIMUM 2 VIEWS APPLICATI 61336 IRAIDA BLISS LONG 8 [facility] ARM CORPORATI SPLINT ON SHOULDER HAND PERCUTANE 43193 [facility] OUS TESTS 8 LIZZETTE B LIZZETTE B W/ALLERGE JOY EXTRACTS MPSV4 10989 DHS/CO RAFI VACCINE 8 [facility] ACYW-135 BANK ACCT SUBQ USE RPR&REFIT 68166 SANAZ YO G 8 PRABHJOT A PRABHJOT A SPECTACLE S EXCEPT APHAKIA FRAMES V2020 SANAZ YO PURCHASES 8 PRABHJOT A PRABHJOT A 1 VISN V2103 SANAZ YO PLANO 8 PRABHJOT A PRABHJOT A TO+/-4.00 D SPHER 0.12-2.00 D CYL EA Encounters Encounter Start End Date Code Location Performer Type Date HOSPITAL RAFI - 7 7 [facility] T OFFICE 43604 [facility] PAO MONTILLA 7 7 PHYSICIAN T NEW 20 S GROUP MINUTES HOSPITAL RAFI - 7 7 [facility] OUTPATIEN INC T EMERGENCY 18643 SAURABH CEDENO 7 7 PHYSICIAN DEPARTMEN S, [facility] T VISIT HIGH/URGE NT SEVERITY EMERGENCY 64697 RAFI 7 7 [facility] DEPARTMEN [facility] T VISIT LOW/MODER SEVERITY HOSPITAL RAFI - 7 7 [facility] OUTPATIEN [facility] T OFFICE 61190 RAFI MONTILLA 7 7 [facility] T VISIT 5 INC MINUTES HOSPITAL RAFI - 7 7 [facility] OUTPATIEN INC T OFFICE 67925 [facility] MELONIE MONTILLA 7 7 N URGENT T VISIT CARE 15 MINUTES OFFICE 13580 [facility] 7 7 DISTRICT T NEW 20 HLTH DEPT MINUTES DIGNA EMERGENCY 01841 [facility] 6 6 [place] EDGAR DEPARTMEN EMERGENCY NIRANJAN T VISIT SERV HIGH/URGE NT SEVERITY HOSPITAL [facility] - 6 6 N OUTPATIEN COMMUNTIY T HOSPITA OFFICE 78277 [facility] OUTPATIEN 6 6 N URGENT ABD T NEW 30 CARE MINUTES EMERGENCY 81256 [facility] 6 6 N DEPARTMEN COMMUNTIY T VISIT HOSPITA LOW/MODER SEVERITY EMERGENCY 99371 [facility] 6 6 [place] KAYLI DEPARTMEN EMERGENCY T VISIT PHYS MODERATE SEVERITY [facility] 6 6 N OUTPATIEN COMMUNTIY T HOSPITA OFFICE 72527 [facility] 6 6 T VISIT 15 MINUTES EMERGENCY 33031 [facility] 6 6 [place] DEPARTMEN EMERGENCY T VISIT SERV HIGH/URGE NT SEVERITY HOSPITAL [facility] - 6 6 N OUTPATIEN COMMUNTIY T HOSPITA OFFICE 93794 [facility] TRA [facility] 6 6 [place] ION ORTHOPAED NEW/ESTAB ICS PLC PATIENT 40 MIN HOSPITAL [facility] - 6 6 N OUTPATIEN COMMUNTIY T HOSPITA HOSPITAL [facility] - 6 6 N OUTPATIEN COMMUNTIY T HOSPITA EMERGENCY 94102 [facility] 6 6 [place] AQUINO DEPARTMEN EMERGENCY T VISIT SERV HIGH/URGE NT SEVERITY EMERGENCY 67454 [facility] 6 6 N DEPARTMEN COMMUNTIY T VISIT HOSPITA MODERATE SEVERITY EMERGENCY 71619 [facility] 6 6 N DEPARTMEN COMMUNTIY T VISIT HOSPITA MODERATE SEVERITY EMERGENCY 22130 [facility] 6 6 [place] DEPARTMEN EMERGENCY T VISIT PHYS HIGH/URGE NT SEVERITY HOSPITAL [facility] - 6 6 N [facility]PAT[facility] - 6 6 N OUTPATIEN COMMUNTIY T HOSPITA EMERGENCY 54596 [facility] 6 6 [place] KAYLI DEPARTMEN EMERGENCY T VISIT PHYSI HIGH/URGE NT SEVERITY EMERGENCY 71642 [facility] 6 6 N DEPARTMEN COMMUNTIY T VISIT HOSPITA MODERATE SEVERITY HOSPITAL [facility] - 6 6 N OUTPATIEN COMMUNTIY T HOSPITA EMERGENCY 64470 [facility] 6 6 N DEPARTMEN COMMUNTIY [facility]/M INOR PROB EMERGENCY 16892 [facility] 5 5 [place] - YORBA DEPARTMEN EMERGENCY PAT T VISIT PHYS MODERATE SEVERITY EMERGENCY 18496 [facility] 5 5 N DEPARTMEN COMMUNTIY T [facility] LOW/MODER SEVERITY HOSPITAL [facility] - 5 5 N [facility] INPATIENT INC OFFICE 87812 [facility] LUPE OUTPATIEN 5 5 PHYSICIAN FEDERICO T VISIT S GROUP 15 MINUTES OFFICE 56313 [facility] LU[facility] OUTPATIEN 5 5 PHYSICIAN FEDERICO T VISIT S GROUP 15 MINUTES HOSPITAL RAFI - 5 5 [facility] OUTPATIEN INC HOSPITAL RAFI - 5 5 [facility] OUTPATIEN INC HOSPITAL RAFI - 5 5 [facility] OUTPATIEN INC OFFICE 62513 [facility] LUPE OUTPATIEN 5 5 PHYSICIAN FEDERICO T VISIT S GROUP 15 MINUTES OFFICE 36365 [facility] LUPE OUTPATIEN 5 5 PHYSICIAN FEDERICO T VISIT S GROUP 15 MINUTES OFFICE 31816 [facility] ANDRADE OUTPATIEN 5 5 PHYSICIAN FEDERICO T VISIT S GROUP 15 MINUTES OFFICE 56499 [facility] ANDRADE OUTPATIEN 5 5 PHYSICIAN FEDERICO T VISIT S GROUP 15 MINUTES OFFICE 05046 [facility] ANDRADE OUTPATIEN 5 5 PHYSICIAN FEDERICO T VISIT S GROUP 15 MINUTES HOSPITAL RAFI - 5 5 [facility] OUTPATIEN INC T HOSPITAL RAFI - 5 5 [facility] OUTPATIEN INC T OFFICE 95975 [facility] ANDRADE OUTPATIEN 5 5 PHYSICIAN FEDERICO T VISIT S GROUP 15 MINUTES HOSPITAL RAFI - 5 5 [facility] OUTPATIEN INC T OFFICE 74624 [facility] ANDRADE OUTPATIEN 5 5 PHYSICIAN FEDERICO T VISIT S GROUP 15 MINUTES EMERGENCY 61647 SAURABH MARTINEZEY 5 5 PHYSICIAN [facility] T VISIT HIGH/URGE NT SEVERITY EMERGENCY 85633 SAURABH MARTINEZEY 5 5 PHYSICIAN BRANDEN DEPARTMEN S, PLLC T VISIT HIGH/URGE NT SEVERITY OFFICE 37328 [facility] LUPE OUTPATIEN 5 5 PHYSICIAN FEDERICO T VISIT S GROUP 15 MINUTES OFFICE 72500 [facility] ANDRADE OUTPATIEN 5 5 PHYSICIAN FEDERICO T VISIT S GROUP 15 MINUTES HOSPITAL RAFI - 5 5 [facility] OUTPATIEN INC T EMERGENCY 23127 RAFI GONZALEZI 5 5 [facility] T VISIT P LOW/MODER SEVERITY HOSPITAL RAFI - 5 5 [facility] OUTPATIEN INC HOSPITAL RAFI - 5 5 [facility] OUTPATIEN INC T OFFICE 69332 [facility] 5 5 [facility] NIRANJAN T VISIT INTERNAL 15 MED MINUTES OFFICE 46660 [facility] LEGER OUTPATIEN 4 4 [facility] AQUINO T VISIT INTERNAL 15 MED MINUTES OFFICE 09468 [facility] LEGER OUTPATIEN 4 4 [facility] AQUINO T VISIT INTERNAL 15 MED MINUTES OFFICE 58667 [place] [facility] ANT OUTPATIEN 4 4 MEDICAL T VISIT SERV 25 FOUNDATIO MINUTES HOSPITAL RAFI - 4 4 [facility] OUTPATIEN INC HOSPITAL RAFI - 4 4 [facility] OUTPATIEN INC T OFFICE 35708 [facility] USERY AND OUTPATIEN 4 4 REG[facility] T VISIT INTERNAL 15 MED MINUTES HOSPITAL RAFI - 4 4 [facility] INC HOSPITAL RAFI - 4 4 [facility]PAT[facility]EN INC HOSPITAL RAFI - 4 4 [facility] OUTPATIEN [facility] T OFFICE 17263 [place] USERY AND OUTPATIEN 4 4 REGENT T VISIT INTERNAL 15 MED MINUTES EMERGENCY 36963 [facility] ALFARIS 4 4 [facility] [facility] DEPARTMEN EMERGENCY T VISIT PHYS HIGH/URGE NT SEVERITY OFFICE 89597 [facility] BESBERNICE OUTPATIEN 4 4 [facility] T VISIT INTERNAL 15 MED MINUTES HOSPITAL RAFI - 4 4 [facility] OUTPATIEN INC T EMERGENCY 03486 [facility] SHA 4 4 [place] DEPARTMEN EMERGENCY T VISIT PHYS HIGH/URGE NT SEVERITY EMERGENCY 81775 [facility] ALMA 4 4 [place] IMT DEPARTMEN EMERGENCY T VISIT PHYS HIGH/URGE NT SEVERITY EMERGENCY 91987 PAO CEDENO 4 4 BRANDEN BRANDEN DEPARTMEN T VISIT MODERATE SEVERITY HOSPITAL RAFI - 4 4 [facility] OUTPATIEN INC T EMERGENCY 67328 RAFI 4 4 [facility] DEPARTMEN INC T VISIT LOW/MODER SEVERITY EMERGENCY 91654 PAO CEDENO 4 4 BRANDEN BRANDEN DEPARTMEN T VISIT HIGH/URGE NT SEVERITY EMERGENCY 78198 ALFARIS ALFARIS 4 4 [facility] DEPARTMEN T VISIT MODERATE SEVERITY OFFICE 61925 USERY AND USERY AND OUTPATIEN 4 4 T VISIT 15 MINUTES EMERGENCY 00363 MICAH OBRIEN MAR 4 4 DEPARTMEN T VISIT MODERATE SEVERITY EMERGENCY 94844 [facility] PAO 4 4 [place] BRANDEN DEPARTMEN EMERGENCY T VISIT PHYS MODERATE SEVERITY OFFICE 24887 ANDRADE ANDRADE OUTPATIEN 4 4 FEDERICO FEDERICO T VISIT 15 MINUTES OFFICE 76789 ANDRADE ANDRADE OUTPATIEN 4 4 FEDERICO FEDERICO T VISIT 15 MINUTES OFFICE 15126 USERY AND USERY AND OUTPATIEN 4 4 T VISIT 25 MINUTES EMERGENCY 08559 PAO CEDENO DEPT 4 4 BRANDEN BRANDEN VISIT HIGH SEVERITY& THREAT FUNCJ EMERGENCY 78486 RAFI 4 4 [facility] DEPARTMEN INC T VISIT HIGH/URGE NT SEVERITY HOSPITAL RAFI - 4 4 [facility] OUTPATIEN INC T HOSPITAL RAFI - 4 4 [facility] OUTPATIEN INC T EMERGENCY 24499 LOLITA BRIONES 4 4 DEPARTMEN T VISIT HIGH/URGE NT SEVERITY OFFICE 90905 BERE BERE OUTPATIEN 4 4 NIRANJAN NIRANJAN T VISIT 15 MINUTES EMERGENCY 67341 RAFI 4 4 [facility] DEPARTMEN INC T VISIT LOW/MODER SEVERITY HOSPITAL RAFI - 4 4 [facility] OUTPATIEN INC T OFFICE 16585 [facility] OUTPATIEN 4 4 NIRANJAN NIRANJAN T VISIT 15 MINUTES OFFICE 44818 ARELI SINGLETON OUTPATIEN 3 3 CINDY CINDY T VISIT 15 MINUTES HOSPITAL RAFI - 3 3 [facility] OUTPATIEN INC T OFFICE 86500 ALLSVEN JR ALLSVEN JR OUTPATIEN 3 3 PABLO PABLO T VISIT 25 MINUTES OFFICE 22278 BERE BERE OUTPATIEN 3 3 NIRANJAN NIRANJAN T VISIT 15 MINUTES OFFICE 28156 DASHAWN SIERRA DASHAWN SIERRA OUTPATIEN 3 3 T NEW 20 MINUTES OFFICE 79116 BESSON BESSON OUTPATIEN 3 3 CINDY CINDY T VISIT 25 MINUTES HOSPITAL RAFI - 3 3 [facility] OUTPATIEN INC T EMERGENCY 16130 RAFI 3 3 [facility] DEPARTMEN INC T VISIT LOW/MODER SEVERITY EMERGENCY 77368 PAO MARTINEZEY 3 3 [facility] DEPARTMEN T VISIT MODERATE SEVERITY HOSPITAL RAFI - 3 3 [facility] OUTPATIEN INC T OFFICE 75683 BERE BERE OUTPATIEN 3 3 NIRANJAN NIRANJAN T VISIT 15 MINUTES HOSPITAL RAFI - 3 3 [facility] OUTPATIEN INC T EMERGENCY 39393 PAO MARTINEZEY 3 3 [facility] DEPARTMEN T VISIT MODERATE SEVERITY EMERGENCY 61774 RAFI 3 3 [facility] DEPARTMEN INC T VISIT LOW/MODER SEVERITY OFFICE 33593 BERE BERE OUTPATIEN 3 3 NIRANJAN NIRANJAN T VISIT 15 MINUTES HOSPITAL RAFI - 2 2 [facility] OUTPATIEN INC T OFFICE 94375 BERE BERE OUTPATIEN 2 2 NIRANJAN NIRANJAN T VISIT 15 MINUTES HOSPITAL RAFI - 2 2 [facility] OUTPATIEN INC T OFFICE 75485 BESSON BESSON OUTPATIEN 2 2 CINDY CINDY T VISIT 15 MINUTES OFFICE 80153 SCIFRES SCIFRES OUTPATIEN 2 2 ANG ANG T VISIT 10 MINUTES EMERGENCY 16761 RAFI 2 2 [facility] DEPARTMEN INC T VISIT MODERATE SEVERITY HOSPITAL RAFI - 2 2 [facility] OUTPATIEN INC T EMERGENCY 85615 [facility] 2 III LUZ III LUZ VISIT HIGH SEVERITY& THREAT FUN OFFICE 84115 JUDY JUDY OUTPATIEN 2 2 NAN NAN T VISIT 15 MINUTES OFFICE 08029 RAFI MCKEE OUTPATIEN 2 2 [facility] T [facility] MINUTES HEAL HEAL OFFICE 67838 [facility] OUTPATIEN 2 2 NIRANJAN NIRANJAN T VISIT 15 MINUTES HOSPITAL RAFI - 2 2 [facility] OUTPATIEN INC T OFFICE 93995 LU[facility] ANDRADE OUTPATIEN 2 2 FEDERICO FEDERICO T VISIT 15 MINUTES EMERGENCY 67301 JOSEPH BRIONES 2 2 EMERGENCY DEPARTMEN SERVICES T VISIT HIGH/URGE NT SEVERITY EMERGENCY 99247 RAFI 2 2 [facility] DEPARTMEN INC T VISIT LOW/MODER SEVERITY OFFICE 31420 ANSON HYATTMIArnel OUTPATIEN 2 2 JR LUZ JR LUZ T VISIT 15 MINUTES OFFICE 29307 [facility] ANDRADE OUTPATIEN 2 2 FEDERICO FEDERICO T VISIT 15 MINUTES HOSPITAL RAFI - 2 2 [facility] OUTPATIEN INC T OFFICE 95589 LU[facility] ANDRADE OUTPATIEN 2 2 FEDERICO FEDERICO T VISIT 15 MINUTES OFFICE 23276 HOOD MORATAYA OUTPATIEN 2 2 LIZZETTE CROCKER T NEW 45 MINUTES HOSPITAL RAFI - 2 2 [facility] OUTPATIEN INC T HOSPITAL RAFI - 2 2 [facility] INPATIENT INC OFFICE 15016 BERE JOSHUAEN 2 2 NIRANJAN NIRANJAN T VISIT 15 MINUTES EMERGENCY 76580 ALINE MIRELES DEPT 2 2 III LUZ III LUZ VISIT HIGH SEVERITY& THREAT FUNCJ EMERGENCY 48335 JOSEPH CEDENO 2 2 EMERGENCY [facility] DEPARTMEN SERVICES T VISIT HIGH/URGE NT SEVERITY HOSPITAL RAFI - 2 2 [facility] T HOSPITAL RAFI - 2 2 [facility] T [facility]OSP[facility] RAFI [facility] 2 2 [facility] INPATIENT INC OFFICE 68484 LUPE ANDRADE OUTPATIEN 2 2 [facility] T VISIT 15 MINUTES HOSPITAL RAFI - 2 2 [facility] OUTPATIEN [facility] T OFFICE 72219 LUPE ANDRADE OUTPATIEN 2 2 [facility] T VISIT 15 MINUTES OFFICE 51635 LUPE ANDRADE OUTPATIEN 2 2 [facility] T VISIT 15 MINUTES EMERGENCY [address] [facility] 2 2 DEPARTMEN T VISIT HIGH/URGE NT SEVERITY HOSPITAL RAFI - 2 2 [facility] OUTPATIEN [facility] T EMERGENCY 94256 RAFI 2 2 [facility] T [facility]ISIT LIMITED/M INOR PROB OFFICE 99041 LUPE ANDRADE OUTPATIEN 2 2 [facility] T VISIT 15 MINUTES EMERGENCY 37701 RAFI 2 2 [facility] DEPARTMEN INC T VISIT LOW/MODER SEVERITY EMERGENCY 18958 JOSEPH CEDENO 2 2 EMERGENCY [facility] DEPARTMEN SERVICES T VISIT MODERATE SEVERITY HOSPITAL RAFI - 2 2 [facility] INC T OFFICE 88708 LUPE ANDRADE OUTPATIEN 2 2 [facility] T VISIT 15 MINUTES OFFICE 40719 JUDY KIM OUTPATIEN 2 2 NAN NAN T VISIT 15 MINUTES HOSPITAL RAFI - 2 2 [facility] T OFFICE 34248 LUPE ANDRADE OUTPATIEN 2 2 [facility] T VISIT 15 MINUTES HOSPITAL RAFI - 2 2 [facility] INC T OFFICE 58593 LUPE SOTOE OUTPATIEN 2 2 [facility] T VISIT 15 MINUTES OFFICE 04802 LUPE SOTOE OUTPATIEN 2 2 [facility] T VISIT 5 MINUTES HOSPITAL RAFI - 2 2 [facility] OUT[facility] INC T OFFICE 70016 LUPE SOTOE OUTPATIEN 2 2 [facility] T VISIT 15 MINUTES OFFICE 14390 OLENAMIArnel HYATTMIArnel OUTPATIEN 2 2 JR LUZ JR LUZ T VISIT 15 MINUTES OFFICE 67174 [facility] ANDRADE OUTPATIEN 1 1 [facility] T VISIT 15 MINUTES HOSPITAL RAFI - 1 1 [facility] OUTPATI[facility] INC T EMERGENCY 32785 RAFI 1 1 [facility] DEPARTMEN INC T VISIT LOW/MODER SEVERITY EMERGENCY 56234 PAO CEDENO 1 1 [facility]URGE NT SEVERITY [facility] RAFI - 1 1 [facility] OUTPATIEN INC T OFFICE 84560 [facility] OUTPATIEN 1 1 [facility] T VISIT CLIN[facility] OF 15 HECTOR MINUTES HOSPITAL RAFI - 1 1 [facility] OUTPATIEN INC T EMERGENCY 60179 RAFI 1 1 [facility] DEPART[facility] INC T VISIT LOW/MODER SEVERITY EMERGENCY 64801 PAO CEDENO 1 1 [facility] DEPART[facility] T VISIT HIGH/URGE NT SEVERITY OFFICE 63668 BESSON BESSON OUTPATIEN 1 1 CINDY CINDY T VISIT 5 MINUTES OFFICE 66466 [facility]PAT[facility] 1 1 [facility] T VISIT [facility] OF 15 HECTOR MINUTES HOSPITAL RAFI - 1 1 [facility] OUTPATIEN INC T EMERGENCY [address] 1 1 EMERGENC[facility] T VISIT HIGH/URGE NT SEVERITY EMERGENCY 23574 RAFI 1 1 [facility] T VISIT LOW/MODER SEVERITY HOSPITAL RAFI - 1 1 [facility] OUTPATIEN INC T EMERGENCY 8[address]01 [address] 1 1 EMERGENCY DEPART[facility] SERVICES T VISIT MODERATE SEVERITY HOSPITAL RAFI - 1 1 [facility] OUTPATI[facility] INC T EMERGENCY 71324 RAFI 1 1 [facility] DEPARTMEN INC T VISIT LOW/MODER SEVERITY OFFICE 40928 [facility] OUTPATIEN 1 1 [facility] NIRANJAN T VISIT INTERNAL 10 MEDI MINUTES HOSPITAL RAFI - 1 1 [facility] OUTPATI[facility] INC T OFFICE 99406 [facility] OUTPATI[facility] 1 1 [facility] NIRANJAN T VISIT INTERNAL 15 MEDI MINUTES OFFICE 60560 [facility]PAT[facility] 1 1 [facility] NIRANJAN T VISIT INTERNAL 15 MEDI MINUTES EMERGENCY 04854 JOSEPH CEDENO 1 1 EMERGENCY [facility] T VISIT HIGH/URGE NT SEVERITY EMERGENCY 48103 RAFI 1 1 [facility] T VISIT LOW/MODER SEVERITY HOSPITAL RAFI - 1 1 [facility] OUTPAT[facility] T OFFICE 15217 [facility] OUTPATI[facility] 1 1 [facility] NIRANJAN T VISIT INTERNAL 15 MEDI MINUTES EMERGENCY [id number] [facility] 0 0 [facility] T VISIT MODERATE SEVERITY HOSPITAL [facility] - 0 0 [facility] OUTPATIEN INC T EMERGENCY 96418 JOSEPH MERLOS, OSMANYT 0 0 EMERGENCY [facility] VISIT SERVICES HIGH SEVERITY& ASSOCIATE THREAT S [facility] EMERGENCY 20982 RAFI 0 0 [facility] DEPARTMEN INC T VISIT LOW/MODER SEVERITY HOSPITAL [facility] - 0 0 [facility] OUTPATIEN INC T OFFICE 13562 [facility] JUDY OUTPATIEN 0 0 NICHOLE MACHADO T VISIT INTERNAL 15 MEDI MINUTES OFFICE 91864 [facility] MCKEMIE OUTPATIEN 0 0 NICHOLE LYON LUZ T VISIT INTERNAL 15 MED MINUTES OFFICE 26772 [facility] JUDY OUTPATIEN 0 0 NICHOLE MACHADO T VISIT INTERNAL 15 MEDI MINUTES OFFICE 95000 [facility] BESBERNICE, OUTPATIEN 0 0 NICHOLE Peng T VISIT INTERNAL 15 MED MINUTES EMERGENCY 53569 JOSEPH CEDENO, 0 0 [facility] MODERATE ASSOCIATE SEVERITY [facility] RAFI - 0 0 [facility] OUTPATIEN INC T EMERGENCY 51902 [facility] 0 0 [facility] DEPARTMEN INC T VISIT LOW/MODER SEVERITY OFFICE 63221 [facility] MCKEMIE OUTPATIEN 9 9 NICHOLE , T VISIT INTERNAL KHALIDA F 15 MED MINUTES HOSPITAL RAFI - 9 9 [facility] OUTPATIEN INC T EMERGENCY 30769 [facility] 9 9 [facility] DEPARTMEN INC T VISIT LIMITED/M INOR PROB [facility]OSPITAL RAFI - 9 9 [facility] OUTPATIEN INC T EMERGENCY 62171 JOSEPH CEDENO, 9 9 EMERGENCY [facility] SERVICES T VISIT MODERATE ASSOCIATE SEVERITY [facility] RAFI - 9 9 [facility] OUTPATIEN INC T OFFICE 23336 ISAI ALEX OUTWILDER 9 9 DAWOOD Brunson T VISIT 15 MINUTES OFFICE 71896 ISAI ALEX OUTPATIEN 9 9 DAWOOD Brunson T NEW 30 MINUTES EMERGENCY 51102 JOSEPH KAPLAN, 9 9 EMERGENCY [facility] DEPARTMEN SERVICES T VISIT MODERATE ASSOCIATE SEVERITY S EMERGENCY 88944 [facility]FI 9 9 [facility] DEPARTMEN INC T VISIT LOW/MODER SEVERITY [facility]OSPITAL RA[facility] - 9 9 [facility] OUTPATIEN INC T EMERGENCY 76297 [facility] 9 9 [facility] DEPARTMEN INC T VISIT LOW/MODER SEVERITY [facility]OSPITAL [facility] - 9 9 [facility] OUTPATIEN INC T EMERGENCY 90269 JOSEPH MERLOS, 9 9 [facility] T VISIT MODERATE ASSOCIATE SEVERITY S EMERGENCY 24002 TRACIE CEDENO, 9 9 [facility] T VISIT ON MODERATE SEVERITY HOSPITAL RAFI - 9 9 [facility] OUTPATIEN INC T EMERGENCY 72269 RAFI 9 9 [facility] DEPARTMEN INC T VISIT LOW/MODER SEVERITY HOSPITAL RAFI - 8 8 [facility] OUTPATIEN INC T EMERGENCY 58793 TRACIE MCDANIEL, 8 8 [facility] T VISIT ON MODERATE SEVERITY EMERGENCY 81886 RA[facility] 8 8 [facility] DEPARTMEN INC T VISIT LOW/MODER SEVERITY OFFICE 29094 HOOD, HOOD, CONSULTAT 8 8 LIZZETTE B LIZZETTE B ION NEW/ESTAB PATIENT 40 MIN OFFICE 23747 DHS/CO RAFI OUTPATIEN 8 8 [facility] MINUTES BANK ACCT PERIODIC 80512 [facility] ANSON PREVENTIV 8 8 NICHOLE LYON E MED EST INTERNAL KHALIDA Dontae PATIENT MED OFFICE 72164 ROLDAN TYLER 8 8 NICHOLE Peng T VISIT INTERNAL 15 MED MINUTES OFFICE 18365 SANAZ YO OUTPATIEN 8 8 PRABHJOT Peng T VISIT 15 MINUTES
--- OUTSIDE RECORDS SUMMARY | 2017-04-11 18:26 | External Medical Summary Rpt ---
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 S GROUP S GROUP DOSE 63819 [facility] M[facility] NONSTRESS 5 [facility] TEST INC INC EVAL C/V 75663 [facility] AMNIOTIC 5 [facility] FLUID INC INC PROTEIN QUAL EA SPECIMEN URNLS DIP 86293 [facility]EE 5 [facility] STICK/TAB INC INC LET REAGENT AUTO MICROSCOP Y URNLS DIP 80055 [facility]EE 5 [facility] STICK/TAB INC INC LET REAGENT AUTO MICROSCOP Y GLUC BLD 43495 [facility] M[facility] GLUC MNTR 5 [facility] DEV INC INC CLEARED FDA SPEC HOME USE 58324 RUSS RAMIREZ NONSTRESS 5 ASHLEY ROY ROBBIN TEST US PREG 77258 [facility] UTERUS 5 MEDICAL TITUS AFTER 1ST IMAGING TRIMEST ASS GESTATION GONADOTRO 68859 [facility] PIN 5 [facility] CHORIONIC [place] [address] [facility] M[facility] ESTRIOL 5 [facility] INC INC ALPHA-FET 40420 [facility] M[facility] OPROTEIN 5 [facility] SERUM INC INC COLLECTIO 40645 [facility]EE N VENOUS 5 [facility] BLOOD INC INC VENIPUNCT URE RADIOLOGI 41273 [facility] C 5 MEDICAL ARMOND EXAMINATI IMAGING ON CHEST ASS SINGLE VIEW FRONTAL CULTURE 72654 COMBINED COMBINED BACTERIAL 5 PHYSICIAN PHYSICIAN S LA S LA QUANTTATI VE COLONY COUNT URINE US PREG 93228 [facility] PHYSICIAN FEDERICO REAL TIME S GROUP W/IMAGE DCMTN TRANSVAG IAADI 01537 [facility] INFFLUENZ 5 [facility] A A VIRUS INC INC IAADI 38017 RA[facility] M[facility] INFLUENZA 5 [facility] B VIRUS INC INC CUL BACT 35371 [facility] XCPT 5 [facility] URINE INC INC BLOOD/[place] [address] RA[facility] M[facility]EE STREPTOCO 5 [facility] CCUS INC INC GROUP A COLLECTIO 71828 [facility]EE N VENOUS 5 [facility] [place] [address] RAFI MCKEE INSULIN 5 [facility] TOTAL INC INC CORTISOL 21405 [facility] M[facility]EE TOTAL 5 [place] [address] RAFI MCKEE C-PEPTIDE 5 [facility] INC INC CYANOCOBA 94588 RAFI MCKEE SUELLEN 5 [facility] VITAMIN INC INC B-12 COMPREHEN 27264 RFAI MCKEE SIVE 5 [facility] METABOLIC INC INC PANEL LIPID 05655 RAFI MCKEE PANEL 5 [place] [address] RAFI MCKEE FREE 5 [facility] [place] [address] RAFI MCKEE THYROID 5 [facility] STIMULATI INC INC NG HORMONE TSH HEMOGLOBI 61688 RA[facility] MCKEE N 5 [facility] GLYCOSYLA INC INC KRISTINA A1C BLOOD 10869 [facility] M[facility]EE COUNT 5 [facility] COMPLETE INC INC AUTO&AUTO DIFRNTL WBC COLLECTIO 17049 RAFI MCKEE N VENOUS 5 [facility] BLOOD INC INC VENIPUNCT URE LENS V2784 SANAZ YO CHRISTIN POLYCARBO 5 MIREYA OR EQUAL ANY INDEX PER LENS SCRATCH V2760 SANAZ WALLER RESISTANT 5 COATING PER LENS OPHTH 09766 SANAZ WALLER MEDICAL 5 XM&EVAL COMPRHNSV ESTAB PT 1/> FRAMES V2020 YOGHASSAN YO CHRISTIN PURCHASES 5 SPHERE V2100 OYGHASSAN WALLER SINGLE 5 VISION PLANO +/- 4.00 PER LENS FITTING 01995 SANAZ WALLER SPECTACLE 5 S XCPT APHAKIA MONOFOCAL IAADIADOO 02245 [facility] LEGER 4 [facility] STREPTOCO INTERNAL CCUS MED GROUP A IAADIADOO 98061 [facility] LEGER 4 [facility] INFLUENZA INTERNAL MED IAADIADOO 06580 [facility] LEGER 4 [facility] STREPTOCO INTERNAL CCUS MED GROUP A FLUORESCE 51366 [facility] NT 4 [facility] NONNFCT INC INC AGT ANTB TITER EA ANTIBODY C-REACTIV 11103 RAFI MCKEE E PROTEIN 4 [place] [address] RAFI MCKEE THYROID 4 [facility] STIMULATI INC INC NG HORMONE TSH GONADOTRO 16888 [facility] M[facility] PIN 4 [facility] CHORIONIC INC INC QUALITATI VE THERAPEUT 56580 RAFI MCKEE IC PX 1/> 4 [facility] AREAS INC INC EACH 15 MIN EXERCISES IADNA NOS 25914 [facility]CKEE 4 [facility] AMPLIFIED INC INC PROBE TQ EACH ORGANISM INF AGENT 53320 [facility] M[facility] DET 4 [facility] NUCLEIC INC INC ACID CLOSTRIDI UM AMP PROBE THERAPEUT 85124 RAFI MCKEE IC PX 1/> 4 [facility] AREAS INC INC EACH 15 MIN EXERCISES INF AGENT 52693 [facility] M[facility] DET 4 [facility] NUCLEIC INC INC ACID CLOSTRIDI UM AMP PROBE SMR PRIM 03579 [facility]EE SRC 4 [facility] GRAM/GIEM INC INC SA STAIN BCT FUNGI/FREEDOM L IADNA NOS 62173 [facility] MCKEE 4 [facility] AMPLIFIED INC INC PROBE TQ EACH ORGANISM BLOOD 25397 [facility] M[facility] OCCULT 4 [facility] PEROXIDAS INC INC E ACTV QUAL FECES 1-3 SPEC APPL 61197 [facility] M[facility] MODALITY 4 [facility] 1/> AREAS INC INC ELEC STIMJ UNATTENDE D APPLICATI 06879 RAFIIRAIDA MCKEE ON 4 [facility] MODALITY INC INC 1/> AREAS HOT/COLD PACKS APPL 04690 [facility] M[facility]EE MODALITY 4 [facility] 1/> AREAS INC INC ULTRASOUN D EA 15 MIN THERAPEUT 69645 RAFI MCKEE IC PX 1/> 4 [facility] AREAS INC INC EACH 15 MIN EXERCISES THERAPEUT 31341 RAFI MCKEE IC PX 1/> 4 [facility] AREAS INC INC EACH 15 MIN EXERCISES MANUAL 25919 [facility] M[facility] THERAPY 4 [facility] TQS 1/> INC INC REGIONS EACH 15 MINUTES APPL 37420 RAFI M[facility]EE MODALITY 4 [facility] 1/> AREAS INC INC ULTRASOUN D EA 15 MIN APPLICATI 48187 [facility] M[facility]EE ON 4 [facility] MODALITY INC INC 1/> AREAS HOT/COLD PACKS APPL 06378 [facility] M[facility]EE MODALITY 4 [facility] 1/> AREAS INC INC ELEC STIMJ UNATTENDE D APPL 05790 [facility] M[facility]EE MODALITY 4 [facility] 1/> AREAS INC INC ELEC STIMJ UNATTENDE D APPLICATI 09055 [facility] ON 4 [facility] MODALITY INC INC 1/> AREAS HOT/COLD PACKS APPL 80069 [facility] M[facility]EE MODALITY 4 [facility] 1/> AREAS INC INC ULTRASOUN D EA 15 MIN MANUAL 23731 [facility] M[facility]EE THERAPY 4 [facility] TQS 1/> INC INC REGIONS EACH 15 MINUTES THERAPEUT 06602 RAFI MCKEE IC PX 1/> 4 [facility] AREAS INC INC EACH 15 MIN EXERCISES PHYSICAL 91240 [facility] M[facility] THERAPY 4 [facility] EVALUATIO INC INC N RADEX 10058 [place] SPINE 4 MEDICAL TITUS LUMBOSACR IMAGING AL ASS MINIMUM 4 VIEWS RADEX 56725 [place] [facility] D SPINE 4 MEDICAL THORACIC IMAGING 3 VIEWS ASS RADIOLOGI 39132 [place] C 4 MEDICAL TITUS EXAMINATI IMAGING ON ANKLE ASS 2 VIEWS CRTCHS E0114 BREG INC. BREG INC. UNDARM 4 OTH THAN WOOD PAIR PAD TIP&HNDGR IP COMPREHEN 67528 [facility] SIVE 4 [facility] METABOLIC INC INC PANEL CREATINE 34108 [facility] M[facility] KINASE 4 [facility] TOTAL INC INC URNLS DIP 78640 [facility] MCKEE 4 [facility] STICK/TAB INC INC LET REAGENT AUTO MICROSCOP Y URINE 40654 [facility]EE 4 [facility] TEST INC INC VISUAL COLOR CMPRSN METHS BLOOD 34600 [facility] COUNT 4 [facility] COMPLETE INC INC AUTO&[place] [address] RAFI MCKEE HEAD/BRAI 4 [facility] N W/[place] [address] RAFI MCKEE TROPONIN 4 [facility] QUANTITAT INC INC DIAMOND CREATINE 31197 RAFI MCKEE KINASE MB 4 [facility] [place] [address] RAFI MCKEE MAXILLOFA 4 [facility] CIAL W/[place] [address] LUPE ANDRADE TRANSVAGI 4 FEDERICO FEDERICO NAL LENS V2784 [facility] POLYCARBO 4 MIREYA OR EQUAL ANY INDEX PER LENS SCRATCH V2760 [facility] RESISTANT 4 COATING PER LENS OPHTH 59588 [facility] MEDICAL 4 XM&EVAL COMPRHNSV ESTAB PT 1/> SPHERE V2100 [facility] SINGLE 4 VISION PLANO +/- 4.00 PER LENS FRAMES V2020 [facility] PURCHASES 4 FITTING 99525 [facility] SPECTACLE 4 [place] [address] RAFI M[facility] INFUSION 4 [facility] THERAPY/P INC INC ROPHYLAXI S /DX 1ST TO 1 HR THERAPEUT 45006 [facility] IC 4 [facility] INJECTION INC INC IV PUSH EACH NEW DRUG BLOOD 51406 [facility] COUNT 4 [facility] COMPLETE INC INC AUTO&AUTO DIFRNTL WBC GONADOTRO 26129 [facility] M[facility] PIN 4 [facility] CHORIONIC INC INC QUALITATI VE GROUND A0425 [facility] 4 AMBULANCE AMBULANCE PER SERVICE SERVICE STATUTE MILE COMPREHEN 28738 [facility] M[facility] SIVE 4 [facility] METABOLIC INC INC PANEL AMB A0427 [facility] SERVICE 4 AMBULANCE AMBULANCE ALS SERVICE SERVICE [place] 1 [place] [address] RAFI MCKEE TRANSVAGI 4 [facility] NAL INC INC GONADOTRO 95461 [facility] M[facility] PIN 4 [facility] CHORIONIC INC INC QUANTITAT DIAMOND URNLS DIP 96801 [facility] MCKEE 4 [facility] STICK/TAB INC INC LET REAGENT AUTO MICROSCOP Y COMPREHEN 51015 [facility] M[facility] SIVE 4 [facility] METABOLIC INC INC PANEL URINE 68000 [facility] MCKEE 4 [facility] TEST INC INC VISUAL COLOR CMPRSN METHS BLOOD 24052 [facility] COUNT 4 [facility] COMPLETE INC INC AUTO&[place] [address] RAPP RAPP SURG 3 HENRY HENRY PATHOLOGY GROSS&BRANDEN ROSCOPIC EXAM URINE 49827 [facility]EE 3 [facility] TEST INC INC VISUAL COLOR CMPRSN METHS COLONOSCO 42717 [facility] M[facility] PY 3 [facility] W/BIOPSY INC INC SINGLE/MU LTIPLE CHIROPRAC 80960 [facility] TIC 3 MANIPULAT [place] SPINAL 3-4 REGIONS THERAPEUT 11143 [facility] DASHAWN [facility] IC PX 1/> 3 AREAS EACH 15 MIN EXERCISES APPL 12442 [facility] MODALITY 3 1/> AREAS ELEC STIMJ UNATTENDE D APPL 44878 [facility] MODALITY 3 1/> AREAS TRACTION MECHANICA L APPL 69648 [facility] MODALITY 3 1/> AREAS TRACTION MECHANICA L THERAPEUT 31058 [facility] DASHAWN [facility]RA IC PX 1/> 3 AREAS EACH 15 MIN EXERCISES CHIROPRAC 54277 [facility] DASHAWN [facility]RA TIC 3 MANIPULAT DIAMOND [place] SPINAL 3-4 REGIONS CHIROPRAC 31147 [facility] DASHAWN [facility]RA TIC 3 MANIPULAT DIAMOND [place] SPINAL 3-4 REGIONS THERAPEUT 06918 [facility] DASHAWN SIERRA IC PX 1/> 3 AREAS EACH 15 MIN EXERCISES APPL 73115 D[facility]HA[facility] DASHAWN [facility] MODALITY 3 1/> AREAS ELEC STIMJ UNATTENDE D APPL 20880 D[facility]HA[facility] DASHAWN [facility] MODALITY 3 1/> AREAS TRACTION MECHANICA L RADEX 88820 D[facility]HA[facility] DASHAWN [facility]RA SPINE 3 CERVICAL 2 OR 3 [place] [address] RAFI M[facility]EE CLOSTRIDI 3 [facility] UM INC INC DIFFICILE TOXIN SMR PRIM 65378 [facility] SRC 3 [facility] GRAM/GIEM INC INC SA STAIN BCT FUNGI/FREEDOM L CUL BACT 74691 [facility] STOOL 3 [facility] AEROBIC INC INC ISOL SALMONELL A&SHIGELL 1 VISN V2104 SCIFRES SCIFRES PLANO-+/- 3 ANG ANG 4.00D SPHER 2.12-4.00 D CYL EA VISION V2799 SCIFRES SCIFRES ITEM OR 3 ANG ANG SERVICE MISCELLAN EOUS FRAMES V2020 SCIFRES SCIFRES PURCHASES 3 ANG ANG OPHTH 32512 SCIFRES SCIFRES MEDICAL 3 ANG ANG XM&EVAL COMPRHNSV ESTAB PT 1/> 1 VISN V2103 SCIFRES SCIFRES PLANO 3 ANG ANG TO+/-4.00 D SPHER 0.12-2.00 D CYL EA LENS V2784 SCIFRES SCIFRES POLYCARBO 3 ANG ANG MIREYA OR EQUAL ANY INDEX PER LENS DETERMINA 40293 SCIFRES SCIFRES TION 3 ANG ANG REFRACTIV E STATE CUL BACT 35638 COMBINED COMBINED XCPT 3 PHYSICIAN PHYSICIAN URINE S LA S LA BLOOD/STO OL AEROBIC ISOL URNLS DIP 12463 BERE BERE 3 NIRANJAN NIRANJAN STICK/TAB LET RGNT NON-[place] [address] [facility] M[facility] TRANSVAGI 2 [facility] NAL INC INC GONADOTRO 61866 [facility] M[facility] PIN 2 [facility] CHORIONIC INC INC QUANTITAT DIAMOND IAADIADOO 65594 ARELI SINGLETON 2 CINDY CINDY STREPTOCO CCUS GROUP A COMPREHEN 54479 [facility] M[facility]EE SIVE 2 [facility] METABOLIC INC INC PANEL URNLS DIP 56491 [facility] MCKEE 2 [facility] STICK/TAB INC INC LET REAGENT AUTO MICROSCOP Y URINE 17235 [facility] MCKEE 2 [facility] TEST INC [place] [address] RAFI MCKEE ABDOMEN & 2 [facility] PELVIS INC INC W/O CONTRAST MATERIAL BLOOD 42954 RAFI MCKEE COUNT 2 [facility] COMPLETE INC INC AUTO&AUTO DIFRNTL WBC SUSCEPTIB 64461 COMBINED COMBINED ILITY 2 PHYSICIAN PHYSICIAN STUDY S LA S LA ANTIMICRO BIAL DISK METHOD CULTURE 02145 COMBINED COMBINED BACTERIAL 2 PHYSICIAN PHYSICIAN S LA S LA QUANTTATI VE COLONY COUNT URINE URNLS DIP 83540 LUPE ANDRADE 2 FEDERICO FEDERICO STICK/TAB LET RGNT NON-AUTO W/[place] [address] RAFI MCKEE THYROID 2 [facility] STIMULATI INC INC NG HORMONE TSH THYROID 08450 [facility] M[facility]EE HORM 2 [facility] UPTK/THYR INC [place] [address] RAFI MCKEE THYROXINE 2 [facility] TOTAL INC INC BRNCDILAT 32236 HOOD HOOD RSPSE 2 LIZZETTE LIZZETTE SPMTRY PRE&POST- BRNCDILAT ADMN PERCUTANE 36130 HOOD HOOD OUS TESTS 2 LIZZETTE LIZZETTE W/ALLERGE JOY EXTRACTS INTRACUTA 32600 HOOD HOOD NEOUS 2 LIZZETTE LIZZETTE TESTS W/ALLERGE JOY EXTRACTS INSERTION 95421 ANDRADE ANDRADE 2 FEDERICO FEDERICO INTRAUTER INE DEVICE IUD URINE 93675 LUPE ANDRADE 2 FEDERICO FEDERICO TEST VISUAL COLOR CMPRSN METHS HEPATIC 22007 [facility]EE FUNCTION 2 [facility] PANEL INC INC CYTP C/V 97189 PATHOLOGY PICKLESIM AUTO THIN 2 & ER JR TONY LYR CYTOLOGY PREPJ SCR LAB MNL RESCR [facility] 52527 MCKEMIE MCKEMIE DISCHARGE 2 JR LUZ JR LUZ DAY MANAGEMEN T 30 MIN/< LAPS SURG 69321 ALLSVEN JR ALLRAN JR 2 PABLO PABLO CHOLECYST ECTOMY W/CHOLANG IOGRAPHY SBSQ 14479 [facility] 2 CINDY CINDY CARE/DAY 25 MINUTES CHOLANGIO 55399 [place] GRAPHY&/P 2 MEDICAL TITUS ANCREATOG IMAGING QUAN ASS NTRAOP RS&I INITIAL 84522 HARDIK ANT HARDIK ANT INPATIENT 2 CONSULT NEW/ESTAB PT 80 MIN LEVEL III 61886 PATHOLOGY JOSEPH SURG 2 & BRI PATHOLOGY CYTOLOGY LAB GROSS&BRANDEN ROSCOPIC EXAM ANES 18140 [facility] INTRAPERI 2 ANESTH ANESTH TONEAL OF THE OF THE UPPER BLUE BL[place]BDOM[place] W/[place] [address] [place] ABDOMINAL 2 MEDICAL TITUS REAL IMAGING TIME ASS W/IMAGE LIMITED INITIAL 75474 [facility] 2 CINDY CINDY CARE/DAY 50 MINUTES LAPAROSCO 5123 RAFI MCKEE PIC 2 [facility] CHOLECYST INC INC ECTOMY INTRAOPER 8753 RAFI MCKEE ATIVE 2 [facility] CHOLANGIO INC INC GRAM RADIOLOGI 32589 [place] C 2 MEDICAL TITUS EXAMINATI IMAGING ON CHEST ASS SINGLE VIEW FRONTAL ECG 15229 RADHA GARCIA JR ROUTINE 2 DWI DWI ECG W/LEAST 12 LDS I&R ONLY RADIOLOGI 34130 [place] C EXAM 2 MEDICAL TITUS CHEST 2 IMAGING VIEWS ASS FRONTAL&L ATERAL URNLS DIP 98066 LUPE ANDRADE 2 FEDERICO FEDERICO STICK/TAB LET RGNT NON-AUTO W/O MICRSCP COMPREHEN 97762 [facility]EE SIVE 2 [facility] METABOLIC INC INC PANEL URNLS DIP 71001 [facility] MCKEE 2 [facility] STICK/TAB INC [place] [address] [facility] M[facility]EE INFUSION 2 [facility] HYDRATION INC INC INITIAL 31 MIN-1 HOUR BLOOD 59831 [facility] COUNT 2 [facility] COMPLETE INC INC AUTO&AUTO DIFRNTL WBC SUSCEPTIB 49767 [facility] ILITY 2 [facility] STUDY INC INC ANTIMICRO BIAL DISK METHOD URNLS DIP 87133 [facility] M[facility]EE 2 [facility] STICK/TAB INC INC LET REAGENT AUTO MICROSCOP Y CULTURE 06803 [facility] M[facility]EE BACTERIAL 2 [facility] INC INC QUANTTATI VE COLONY COUNT URINE CULTURE 63279 RAFI MCKEE BCT 2 [facility] ISOL&PRSM INC INC PTV ID ISOLATE EA URINE NEURAXIAL 18877 [facility] LICNOLN LABOR 2 ANESTH PHOEBE ANALG/ANE OF THE S PLND BLUE VAGINAL DELIVERY VAGINAL 28934 LUPE ANDRADE DELIVERY 2 FEDERICO FEDERICO ONLY W/POSTPAR GREGORIO CARE REPAIR OF 7569 RAFI MCKEE OTHER 2 [facility] CURRENT INC INC OBSTETRIC LACERATIO N 95239 RAFI MCKEE NONSTRESS 2 [facility] TEST INC INC URNLS DIP 68737 [facility] MCKEE 2 [facility] STICK/TAB INC INC LET REAGENT AUTO MICROSCOP Y URNLS DIP 73010 [facility] MCKEE 2 [facility] STICK/TAB INC INC LET REAGENT AUTO MICROSCOP Y CULTURE 06321 [facility]FI M[facility]EE BACTERIAL 2 [facility] INC INC QUANTTATI VE COLONY COUNT URINE BLOOD 90377 [facility] MCKEE COUNT 2 [facility] COMPLETE INC INC AUTO&AUTO DIFRNTL WBC 58557 [facility] M[facility]EE NONSTRESS 2 [facility] TEST INC INC CUL BACT 68095 COMBINED COMBINED XCPT 2 PHYSICIAN PHYSICIAN URINE S LA S LA BLOOD/STO OL AEROBIC ISOL 32883 LUPE ANDRADE BIOPHYSIC 2 FEDERICO FEDERICO AL PROFILE W/O NON-STRES S TESTING US PREG 66892 LUPE ANDRADE UTERUS 2 FEDERICO FEDERICO REAL TIME F/U TRNSABDL PER FETUS DOPPLER 74312 LUPE ANDRADE VELOCIMET 2 FEDERICO FEDERICO RY UMBILICAL ARTERY 19479 [facility]EE NONSTRESS 2 [facility] TEST INC INC URNLS DIP 37545 RAFI KOENIGON 2 [facility] STICK/TAB INC INC LET REAGENT AUTO MICROSCOP Y FTL 28190 RAFI M[facility]EE FIBRONECT 2 [facility] IN INC INC CERVICOVA G SECRETION S SEMI-MARITZA GLUCOSE 21372 RAFI KOENIGON TOLERANCE 2 [facility] EA ADDL INC INC BEYOND 3 SPECIMENS GLUCOSE 04480 RAFI MCKEE TOLERANCE 2 [facility] TEST GTT INC INC 3 SPECIMENS URNLS DIP 82135 RAFI KOENIGON 2 [facility] STICK/TAB INC INC LET RGNT NON-AUTO W/O MICRSCP GLUCOSE 06919 LUPE ANDRADE TOLERANCE 2 FEDERICO FEDERICO TEST GTT 3 SPECIMENS FITTING 81000 YO CHRISTIN MALDONADONES CHRISTIN SPECTACLE 2 S XCPT APHAKIA MONOFOCAL 1 VISN V2104 SANAZ YO CHRISTIN PLANO-+/- 2 4.00D SPHER 2.12-4.00 D CYL EA FRAMES V2020 SANAZ YO CHRISTIN PURCHASES 2 OPHTH 31201 SANAZ YO CHRISTIN MEDICAL 2 XM&EVAL COMPRHNSV ESTAB PT 1/> DETERMINA 23326 SANAZ YO CHRISTIN TION 2 REFRACTIV E STATE 1 VISN V2103 SANAZ YO CHRISTIN PLANO 2 TO+/-4.00 D SPHER 0.12-2.[place] [address] RAFI RAFI NONSTRESS 2 [facility] TEST INC INC OBSERVATI 71243 HARPEL HARPEL ON/INPATI 2 [facility] 55 MINUTES CUL BACT 42700 COMBINED COMBINED XCPT 1 PHYSICIAN PHYSICIAN URINE S LA S LA BLOOD/STO OL AEROBIC ISOL EVAL C/V 12303 RAFI M[facility]EE AMNIOTIC 1 [facility] FLUID INC INC PROTEIN QUAL EA SPECIMEN 99743 RAFI MCKEE NONSTRESS 1 [facility] TEST INC INC OBSERVATI 88040 RUSS RAMIREZ ON/INPATI 1 ASHLEY SIEGEL [facility] 55 MINUTES [place] PREG 37095 WOMEN'S ANDRADE UTERUS 1 [facility] FEDERICO [facility] [place] [address] RAFI MCKEE STREPTOCO 1 [facility] CCUS INC INC GROUP A IAADI 17758 RAFI MCKEE INFLUENZA 1 [facility] B VIRUS INC INC IAADI 24354 RAFI MCKEE INFFLUENZ 1 [facility] A A VIRUS INC INC URNLS DIP 88440 [facility]FI MCKEE 1 [facility] STICK/TAB INC INC LET REAGENT AUTO MICROSCOP Y GONADOTRO 33003 [facility] M[facility]EE PIN 1 [facility] CHORIONIC INC INC QUANTITAT DIAMOND ALPHA-FET 21366 [facility] M[facility] OPROTEIN 1 [facility] [place] [address] RAFI MCKEE ESTRIOL 1 [facility] INC INC URNLS DIP 61973 [facility] M[facility]EE 1 [facility] STICK/TAB INC INC LET REAGENT AUTO MICROSCOP Y URINE 58848 [facility]EE 1 [facility] TEST INC INC VISUAL COLOR CMPRSN METHS EXCISION 83988 JOSEPH HIGGINS ROSE NAIL 1 EMERGENCY [facility] PERMANENT REMOVAL REMOVAL 8623 RAFI MCKEE OF NAIL 1 [facility] NAILBED INC [place] 51263 [facility] UTERUS [facility] W/IMAGE HECTOR DCMTN TRANSVAG CYTP C/V 15299 PATHOLOGY PATHOLOGY AUTO THIN 1 & & LYR CYTOLOGY CYTOLOGY PREPJ SCR LAB LAB MNL RESCR PHYS MOLEC 32577 MOLECULAR MOLECULAR ISOL/XTRJ 1 HP PATHOLOGY PATHOLOGY NUCLEIC LAB NETW LAB NETW ACID EA TYPE MOLECULAR 23877 MOLECULAR MOLECULAR DX AMP 1 TARGET PATHOLOGY PATHOLOGY MULTIPLEX LAB NETW LAB NETW EA ADDL SEQ MOLEC 17582 MOLECULAR MOLECULAR SEP&ID HI 1 RESOLU PATHOLOGY PATHOLOGY TQ EACH LAB NETW LAB NETW NUCLEIC ACID PREP IADNA 25282 PATHOLOGY PATHOLOGY NEISSERIA 1 & & CYTOLOGY CYTOLOGY GONORRHOE LAB LAB AE AMPLIFIED PROBE TQ IADNA 99105 PATHOLOGY PATHOLOGY CHLAMYDIA 1 & & CYTOLOGY CYTOLOGY TRACHOMAT LAB LAB IS AMPLIFIED PROBE TQ MOLECULAR 23938 MOLECULAR MOLECULAR DX AMP 1 TARGET PATHOLOGY PATHOLOGY MULTIPLEX LAB NETW LAB NETW 1ST 2 SEQ MOLECULAR 92346 MOLECULAR MOLECULAR 1 DIAGNOSTI PATHOLOGY PATHOLOGY CS LAB NETW LAB NETW INTERPRET ATION & REPORT MUTATION 20995 MOLECULAR MOLECULAR ID 1 ENZYMATIC PATHOLOGY PATHOLOGY LAB NETW LAB NETW LIG/PRIME R XTN 1 SGM EA GONADOTRO 29114 [facility] PIN 1 [facility] CHORIONIC INC INC QUANTITAT DIAMOND OPHTH 91696 BOBBY MCCULLOUGHDanish ROSALES TERELL MEDICAL 1 XM&EVAL COMPRHNSV ESTAB PT 1/> SPHERE V2100 BOBBY FIGUEREDO SINGLE 1 VISION PLANO +/- 4.00 PER LENS FRAMES V2020 BOBBY MCCULLOUGHA PURCHASES 1 FITTING 64087 BOBBY FIGUEREDO SPECTACLE 1 S XCPT APHAKIA MONOFOCAL URNLS DIP 86288 [facility] MCKEE 1 [facility] STICK/TAB INC INC LET REAGENT AUTO MICROSCOP Y URINE 44947 [facility] MCKEE 1 [facility] TEST INC [place] [address] RA[facility] M[facility]EE STREPTOCO 0 [facility] [place] [address] [facility], HEAD/BRAI 0 MEDICAL ANDRES P N W/O IMAGING CONTRAST ASSOCIATE MATERIAL S 3D 14431 [facility], RENDERING 0 MEDICAL ANDRES P W/INTERP IMAGING & ASSOCIATE POSTPROCE S SS SUPERVISI ON RADIOLOGI 56484 [facility] HANNA, C 0 MEDICAL ROLAND EXAMINATI IMAGING ON ANKLE ASSOCIATE 2 VIEWS S RADEX 41716 SARAVANAN HANNA, ANKLE 0 MEDICAL ROLAND COMPLETE IMAGING MINIMUM 3 [place] [address] RA[facility] M[facility] STREPTOCO 9 [facility] CCUS INC INC GROUP A IAADI 20252 RAFI MCKEE INFLUENZA 9 [facility] B VIRUS INC INC IAADI 30246 RAFI MCKEE INFFLUENZ 9 [facility] A A VIRUS INC INC TONSILLEC 282 [facility] M[facility]EE YESSY 9 [facility] WITHOUT INC INC ADENOIDEC YESSY LEVEL III 00648 PATHOLOGY PATHOLOGY SURG 9 & & PATHOLOGY CYTOLOGY CYTOLOGY LAB LAB GROSS&BRANDEN ROSCOPIC EXAM THERAPEUT 70052 [facility] M[facility]EE IC 9 [facility] INJECTION [place] [address] [facility] M[facility] INFUSION 9 [facility] THERAPY/P INC INC ROPHYLAXI S /DX 1ST TO 1 HR BLOOD 79842 [facility] COUNT 9 [facility] HEMATOCRI INC INC T BLOOD 53056 [facility] COUNT 9 [facility] HEMOGLOBI INC INC N GONADOTRO 58082 [facility] PIN 9 [facility] [place] [address] RAFI M[facility]EE INFUSION 9 [facility] THERAPY INC INC PROPHYLAX IS/DX EA HOUR TONSILLEC 24072 ISAI ALEX TOMY 9 DAWOOD Brunson PRIMARY/S ECONDARY AGE 12/> ANESTHESI 46971 [facility] Danish TRIVEDI 9 ANESTH KHALIDA F INTRAORAL OF THE [place] [address] RA[facility] M[facility] STREPTOCO 9 [facility] CCUS INC INC GROUP A IAADI 42240 RAFI MCKEE INFFLUENZ 9 [facility] A A VIRUS INC INC IAADI 79128 RAFI MCKEE INFLUENZA 9 [facility] B VIRUS INC INC [place] [address] [facility] ST[facility]O 9 [facility] CCUS INC INC GROUP A RADEX 21016 [facility] M[facility]EE SHOULDER 8 [facility] COMPLETE INC INC MINIMUM 2 VIEWS APPLICATI 91480 IRAIDA BLISS LONG 8 KIT [facility] ARM CORPORATI SPLINT ON SHOULDER HAND PERCUTANE 58999 HOODHOOD OUS TESTS 8 LIZZETTE B LIZZETTE B W/ALLERGE JOY EXTRACTS MPSV4 34472 DHS/CO RAFI VACCINE 8 HEALTH [facility] [id number] BANK ACCT SUBQ USE RPR&REFIT 48386 SANAZ YO G 8 PRABHJOT A PRABHJOT A SPECTACLE S EXCEPT APHAKIA FRAMES V2020 SANAZ YO PURCHASES 8 PRABHJOT A PRABHJOT A 1 VISN V2103 SANAZ YO PLANO 8 PRABHJOT A PRABHJOT A TO+/-4.00 D SPHER 0.12-2.00 D CYL EA Encounters Encounter Start End Date Code Location Performer Type Date HOSPITAL RAFI - 7 7 [facility] OUTPATIEN INC T OFFICE 08794 [facility] PAO MONTILL[facility] 7 7 PHYSICIAN T NEW 20 S GROUP MINUTES HOSPITAL RAFI - 7 7 [facility] OUTPATIEN INC T EMERGENCY 39335 SAURABH CEDENO 7 7 PHYSICIAN DEPARTMEN S, [facility] T VISIT HIGH/URGE NT SEVERITY EMERGENCY 12668 RAFI 7 7 [facility] DEPARTMEN [facility] T VISIT LOW/MODER SEVERITY HOSPITAL RAFI - 7 7 [facility] OUTPATIEN [facility] T OFFICE 09651 RAFI MONTILLA 7 7 [facility] T VISIT 5 INC MINUTES HOSPITAL RAFI - 7 7 [facility] OUTPATIEN INC T OFFICE 72615 [facility] MELONIE MONTILLA 7 7 N URGENT T VISIT CARE 15 MINUTES OFFICE 24104 [facility] 7 7 DISTRICT T NEW 20 HLTH DEPT MINUTES DIGNA EMERGENCY 66970 [facility] 6 6 [place] EDGAR DEPARTMEN EMERGENCY NIRANJAN T VISIT SERV HIGH/URGE NT SEVERITY HOSPITAL [facility] - 6 6 N OUTPATIEN COMMUNTIY T HOSPITA OFFICE 44568 [facility] OUTPATIEN 6 6 N URGENT ABD T NEW 30 CARE MINUTES EMERGENCY 17520 [facility] 6 6 N DEPARTMEN COMMUNTIY T VISIT HOSPITA LOW/MODER SEVERITY EMERGENCY 88443 [facility] 6 6 [place] KAYLI DEPARTMEN EMERGENCY T VISIT PHYS MODERATE SEVERITY HOSPITAL [facility] - 6 6 N OUTPATIEN COMMUNTIY T HOSPITA OFFICE 85074 [facility] OUTPATI 6 6 T VISIT 15 MINUTES EMERGENCY 52152 [facility] 6 6 [place] DEPARTMEN EMERGENCY T VISIT SERV HIGH/URGE NT SEVERITY HOSPITAL [facility] - 6 6 N OUTPATIEN COMMUNTIY T HOSPITA OFFICE 11312 [facility] TRA CONSULTAT 6 6 [place] ION ORTHOPAED NEW/ESTAB ICS PLC PATIENT 40 MIN HOSPITAL [facility] - 6 6 N OUTPATIEN COMMUNTIY T HOSPITA HOSPITAL [facility] - 6 6 N OUTPATIEN COMMUNTIY T HOSPITA EMERGENCY 28930 [facility] 6 6 [place] AQUINO DEPARTMEN EMERGENCY T VISIT SERV HIGH/URGE NT SEVERITY EMERGENCY 52935 [facility] 6 6 N DEPARTMEN COMMUNTIY T VISIT HOSPITA MODERATE SEVERITY EMERGENCY 42753 [facility] 6 6 N DEPARTMEN COMMUNTIY T VISIT HOSPITA MODERATE SEVERITY EMERGENCY 50407 [facility] 6 6 [place] DEPARTMEN EMERGENCY T VISIT PHYS HIGH/URGE NT SEVERITY HOSPITAL [facility] - 6 6 N OUTPATIEN [facility]TIY [facility] - 6 6 N OUTPATIEN COMMUNTIY T HOSPITA EMERGENCY 65870 [facility] 6 6 [place] KAYLI DEPARTMEN EMERGENCY T VISIT PHYSI HIGH/URGE NT SEVERITY EMERGENCY 73963 [facility] 6 6 N DEPARTMEN COMMUNTIY T VISIT HOSPITA MODERATE SEVERITY HOSPITAL [facility] - 6 6 N OUTPATIEN COMMUNTIY T HOSPITA EMERGENCY 90160 [facility] 6 6 N DEPARTMEN COMMUNTIY T VISIT [facility] LIMITED/M INOR PROB EMERGENCY 74660 [facility] 5 5 [place] - YORBA DEPARTMEN EMERGENCY PAT T VISIT PHYS MODERATE SEVERITY EMERGENCY 49758 [facility] 5 5 N DEPARTMEN COMMUNTIY T VISIT [facility] LOW/MODER SEVERITY HOSPITAL [facility] - 5 5 N [facility] 5 5 [facility] INPATIENT INC OFFICE 61933 [facility] OUTPATIEN 5 5 PHYSICIAN FEDERICO T VISIT S GROUP 15 MINUTES OFFICE 09561 [facility] OUTPATIEN 5 5 PHYSICIAN FEDERICO T VISIT S GROUP 15 MINUTES HOSPITAL RAFI - 5 5 [facility] OUTPATIEN INC [facility]OSPITAL RAFI - 5 5 [facility] OUTPATIEN INC [facility] RAFI - 5 5 [facility] OUTPATIEN INC OFFICE 68384 [facility] OUTPATIEN 5 5 PHYSICIAN FEDERICO T VISIT S GROUP 15 MINUTES OFFICE 43599 [facility] OUTPATIEN 5 5 PHYSICIAN FEDERICO T VISIT S GROUP 15 MINUTES OFFICE 87133 [facility] ANDRADE OUTPATIEN 5 5 PHYSICIAN FEDERICO T VISIT S GROUP 15 MINUTES OFFICE 96580 [facility] AND[facility] OUTPATIEN 5 5 PHYSICIAN FEDERICO T VISIT S GROUP 15 MINUTES OFFICE 61767 [facility] ANDR[facility] OUTPATIEN 5 5 PHYSICIAN FEDERICO T VISIT S GROUP 15 MINUTES HOSPITAL RAFI - 5 5 [facility] OUTPATIEN INC T HOSPITAL RAFI - 5 5 [facility] OUTPATIEN INC T OFFICE 40172 [facility] OUTPATIEN 5 5 PHYSICIAN FEDERICO T VISIT S GROUP 15 MINUTES HOSPITAL RAFI - 5 5 [facility] OUTPATIEN INC T OFFICE 98607 [facility] OUTPATIEN 5 5 PHYSICIAN FEDERICO T VISIT S GROUP 15 MINUTES EMERGENCY 97522 SAURABH MARTINEZEY 5 5 [facility]IGH/URGE NT SEVERITY EMERGENCY 66126 SAURABH MARTINEZEY 5 5 PHYSICIAN BRANDEN DEPARTMEN S, PLLC T VISIT HIGH/URGE NT SEVERITY OFFICE 36726 [facility] OUTPATIEN 5 5 PHYSICIAN FEDERICO T VISIT S GROUP 15 MINUTES OFFICE 29565 [facility] AND[facility] OUTPATIEN 5 5 PHYSICIAN FEDERICO T VISIT S GROUP 15 MINUTES HOSPITAL RAFI - 5 5 [facility] OUTPATIEN INC T EMERGENCY 85286 RAFI GONZALEZI 5 5 [facility] T VISIT P LOW/MODER SEVERITY HOSPITAL RAFI - 5 5 [facility] OUTPATIEN INC HOSPITAL RAFI - 5 5 [facility] OUTPATIEN INC T OFFICE 89387 [place] BERE OUTPATIEN 5 5 [facility] NIRANJAN T VISIT INTERNAL 15 MED MINUTES OFFICE 31510 [place] LEGER OUTPATIEN 4 4 [facility] AQUINO T VISIT INTERNAL 15 MED MINUTES OFFICE 21958 [facility] LEGER OUTPATIEN 4 4 [place] AQUINO T VISIT INTERNAL 15 MED MINUTES OFFICE 07520 [place] [facility] ANT OUTPATIEN 4 4 MEDICAL T VISIT SERV 25 FOUNDATIO MINUTES HOSPITAL RAFI - 4 4 [facility] OUTPATIEN INC [facility]OSPITAL RAFI - 4 4 [facility] OUTPATIEN INC T OFFICE 14203 [place] USERY AND OUTPATIEN 4 4 [place] T VISIT INTERNAL 15 MED MINUTES HOSPITAL RAFI - 4 4 [facility] OUTPATIEN INC HOSPITAL RAFI - 4 4 [facility] OUTPATIEN INC HOSPITAL RAFI - 4 4 [facility] OUTPATIEN [facility] T OFFICE 58290 [place] USERY AND OUTPATIEN 4 4 [place] T VISIT INTERNAL 15 MED MINUTES EMERGENCY 83281 [facility] ALFARIS 4 4 [place] [facility] DEPARTMEN EMERGENCY T VISIT PHYS HIGH/URGE NT SEVERITY OFFICE 41644 [place] BESBERNICE OUTPATIEN 4 4 [facility] T VISIT INTERNAL 15 MED MINUTES HOSPITAL RAFI - 4 4 [facility] OUTPATIEN INC T EMERGENCY 27982 [facility] WELLS SHA 4 4 [place] DEPARTMEN EMERGENCY T VISIT PHYS HIGH/URGE NT SEVERITY EMERGENCY 72025 [facility] ALMA 4 4 [place] IMT DEPARTMEN EMERGENCY T VISIT PHYS HIGH/URGE NT SEVERITY EMERGENCY 63116 PAO CEDENO 4 4 BRANDEN BRANDEN DEPARTMEN T VISIT MODERATE SEVERITY HOSPITAL RAFI - 4 4 [facility] OUTPATIEN INC T EMERGENCY 92546 RAFI 4 4 [facility] DEPARTMEN INC T VISIT LOW/MODER SEVERITY EMERGENCY 41746 PAO CEDENO 4 4 BRANDEN BRANDEN DEPARTMEN T VISIT HIGH/URGE NT SEVERITY EMERGENCY 39012 AL[facility] ALFARIS 4 4 [facility] DEPARTMEN T VISIT MODERATE SEVERITY OFFICE 60866 USERY AND USERY AND OUTPATIEN 4 4 T VISIT 15 MINUTES EMERGENCY 67611 MICAH OBRIEN MAR 4 4 DEPARTMEN T VISIT MODERATE SEVERITY EMERGENCY 80369 [facility] PAO 4 4 [place] BRANDEN DEPARTMEN EMERGENCY T VISIT PHYS MODERATE SEVERITY OFFICE 63376 ANDRADE ANDRADE OUTPATIEN 4 4 FEDERICO FEDERICO T VISIT 15 MINUTES OFFICE 76500 ANDRADE ANDRADE OUTPATIEN 4 4 FEDERICO FEDERICO T VISIT 15 MINUTES OFFICE 90238 USERY AND USERY AND OUTPATIEN 4 4 T VISIT 25 MINUTES EMERGENCY 22160 PAO CEDENO DEPT 4 4 BRANDEN BRANDEN VISIT HIGH SEVERITY& THREAT FUNCJ EMERGENCY 29737 RAFI 4 4 [facility] DEPARTMEN INC T VISIT HIGH/URGE NT SEVERITY HOSPITAL RAFI - 4 4 [facility] OUTPATIEN INC T HOSPITAL RAFI - 4 4 [facility] OUTPATIEN INC T EMERGENCY 26906 LOLITA BRIONES 4 4 DEPARTMEN T VISIT HIGH/URGE NT SEVERITY OFFICE 13674 BERE BERE OUTPATIEN 4 4 NIRANJAN NIRANJAN T VISIT 15 MINUTES EMERGENCY 44957 RAFI 4 4 [facility] DEPARTMEN INC T VISIT LOW/MODER SEVERITY HOSPITAL RAFI - 4 4 [facility] OUTPATIEN INC T OFFICE 60814 BERE BLACKBURN OUTPATIEN 4 4 NIRANJAN NIRANJAN T VISIT 15 MINUTES OFFICE 53538 ARELI SINGLETON OUTPATIEN 3 3 CINDY CINDY T VISIT 15 MINUTES HOSPITAL RAFI - 3 3 [facility] OUTPATIEN INC T OFFICE 87992 ALLSVEN JR ALLSVEN JR OUTPATIEN 3 3 PABLO PABLO T VISIT 25 MINUTES OFFICE 27994 BERE BERE OUTPATIEN 3 3 NIRANJAN NIRANJAN T VISIT 15 MINUTES OFFICE 21148 DASHAWN SIERRA DASHAWN SIERRA OUTPATIEN 3 3 T NEW 20 MINUTES OFFICE 09917 BESSON BESSON OUTPATIEN 3 3 CINDY CINDY T VISIT 25 MINUTES HOSPITAL RAFI - 3 3 [facility] OUTPATIEN INC T EMERGENCY 69230 RAFI 3 3 [facility] DEPARTMEN INC T VISIT LOW/MODER SEVERITY EMERGENCY 35602 PAO MARTINEZEY 3 3 [facility] DEPARTMEN T VISIT MODERATE SEVERITY HOSPITAL RAFI - 3 3 [facility] OUTPATIEN INC T OFFICE 32039 BERE BERE OUTPATIEN 3 3 NIRANJAN NIRANJAN T VISIT 15 MINUTES HOSPITAL RAFI - 3 3 [facility] OUTPATIEN INC T EMERGENCY 76737 PAO MARTINEZEY 3 3 [facility] DEPARTMEN T VISIT MODERATE SEVERITY EMERGENCY 94010 RAFI 3 3 [facility] DEPARTMEN INC T VISIT LOW/MODER SEVERITY OFFICE 67423 BERE BERE OUTPATIEN 3 3 NIRANJAN NIRANJAN T VISIT 15 MINUTES HOSPITAL RAFI - 2 2 [facility] OUTPATIEN INC T OFFICE 59255 BERE BERE OUTPATIEN 2 2 NIRANJAN NIRANJAN T VISIT 15 MINUTES HOSPITAL RAFI - 2 2 [facility] OUTPATIEN INC T OFFICE 29660 BESSON BESSON OUTPATIEN 2 2 CINDY CINDY T VISIT 15 MINUTES OFFICE 45062 SCIFRES SCIFRES OUTPATIEN 2 2 ANG ANG T VISIT 10 MINUTES EMERGENCY 63673 RAFI 2 2 [facility] DEPARTMEN INC T VISIT MODERATE SEVERITY HOSPITAL RAFI - 2 2 [facility] OUTPATIEN INC T EMERGENCY 39052 [facility] DE[facility] 2 2 III LUZ III LUZ VISIT HIGH SEVERITY& THREAT FUN OFFICE 33759 JUDY JUDY OUTPATIEN 2 2 NAN NAN T VISIT 15 MINUTES OFFICE 94694 RAFI MCKEE OUTPATIEN 2 2 [facility] MINUTES HEAL HEAL OFFICE 34535 BERE [facility] OUTPATIEN 2 2 NIRANJAN NIRANJAN T VISIT 15 MINUTES HOSPITAL RAFI - 2 2 [facility] OUTPATIEN INC T OFFICE 96381 [facility] ANDRADE OUTPATIEN 2 2 FEDERICO FEDERICO T VISIT 15 MINUTES EMERGENCY 56503 JOSEPH BRIONES 2 2 EMERGENCY DEPARTMEN SERVICES T VISIT HIGH/URGE NT SEVERITY EMERGENCY 18886 RAFI 2 2 [facility] DEPARTMEN INC T VISIT LOW/MODER SEVERITY OFFICE 30528 ANSON HYATTMIArnel OUTPATIEN 2 2 JR LUZ JR LUZ T VISIT 15 MINUTES OFFICE 02697 [facility] ANDRADE OUTPATIEN 2 2 FEDERICO FEDERICO T VISIT 15 MINUTES HOSPITAL RAFI - 2 2 [facility] OUTPATIEN INC T OFFICE 44060 [facility] ANDRADE OUTPATIEN 2 2 FEDERICO FEDERICO T VISIT 15 MINUTES OFFICE 72524 HOOD MORATAYA OUTPATIEN 2 2 LIZZETTE CROCKER T NEW 45 MINUTES HOSPITAL RAFI - 2 2 [facility] OUTPATIEN INC T HOSPITAL RAFI - 2 2 [facility] INPATIENT INC OFFICE 31997 BERE JOSHUAEN 2 2 NIRANJAN NIRANJAN T VISIT 15 MINUTES EMERGENCY 58483 ALINE MIRELES DEPT 2 2 III LUZ III LUZ VISIT HIGH SEVERITY& THREAT FUNCJ EMERGENCY 11873 JOSEPH CEDENO 2 2 EMERGENCY [facility] DEPARTMEN SERVICES T VISIT HIGH/URGE NT SEVERITY HOSPITAL RAFI - 2 2 [facility] OUTPATIEN [facility] T HOSPITAL RAFI - 2 2 [facility] OUTPATIEN [facility] T HOSPITAL RAFI - 2 2 [facility] INPATIENT INC OFFICE 33901 LUPE ANDRADE OUTPATIEN 2 2 FEDERICO FEDERICO T VISIT 15 MINUTES HOSPITAL RAFI - 2 2 [facility] OUTPATIEN [facility] T OFFICE 59722 [facility] ANDRADE OUTPATIEN 2 2 FEDERICO FEDERICO T VISIT 15 MINUTES OFFICE 00694 [facility] ANDRADE OUTPATIEN 2 2 FEDERICO FEDERICO T VISIT 15 MINUTES EMERGENCY 85848 [facility] 2 2 DEPARTMEN T VISIT HIGH/URGE NT SEVERITY HOSPITAL RAFI - 2 2 [facility] OUTPATIEN [facility] T EMERGENCY 79912 RAFI 2 2 [facility] T VISIT LIMITED/M INOR PROB OFFICE 28186 [facility] ANDRADE OUTPATIEN 2 2 FEDERICO FEDERICO T VISIT 15 MINUTES EMERGENCY 14234 RAFI 2 2 [facility] DEPARTMEN INC T VISIT LOW/MODER SEVERITY EMERGENCY 90832 JOSEPH CEDENO 2 2 EMERGENCY [facility] DEPARTMEN SERVICES T VISIT MODERATE SEVERITY HOSPITAL RAFI - 2 2 [facility] OUTPATIEN INC T OFFICE 55039 [facility] ANDRADE OUTPATIEN 2 2 FEDERICO FEDERICO T VISIT 15 MINUTES OFFICE 77987 JUDY KIM OUTPATIEN 2 2 NAN NAN T VISIT 15 MINUTES HOSPITAL RAFI - 2 2 [facility] OUTPATIEN INC T OFFICE 09613 [facility] ANDRADE OUTPATIEN 2 2 FEDER[facility] FEDERICO T VISIT 15 MINUTES HOSPITAL RAFI - 2 2 [facility] OUTPATIEN INC T OFFICE 46579 LUPE SOTOE OUTPATIEN 2 2 FEDERICO FEDERICO T VISIT 15 MINUTES OFFICE 38747 [facility] SOTOE OUTPATIEN 2 2 [facility] FEDERICO T VISIT 5 MINUTES HOSPITAL RAFI - 2 2 [facility] OUTPATIEN INC T OFFICE 18877 [facility]PE SOTOE OUTPATIEN 2 2 FED[facility] FEDERICO T VISIT 15 MINUTES OFFICE 21747 OLENAMIArnel HYATTMIArnel OUTPATIEN 2 2 JR LUZ JR LUZ T VISIT 15 MINUTES OFFICE 19175 [facility] ANDRADE OUTPATIEN 1 1 FED[facility] FEDERICO T VISIT 15 MINUTES HOSPITAL RAFI - 1 1 [facility] OUTPATIEN INC T EMERGENCY 46589 RAFI 1 1 [facility] DEPARTMEN INC T VISIT LOW/MODER SEVERITY EMERGENCY 42183 PAO CEDENO 1 1 [facility] HIGH/URGE NT SEVERITY HOSPITAL RAFI - 1 1 [facility] OUTPATIEN INC T OFFICE 26951 [facility] OUT[facility] 1 1 [facility] T VISIT CLINIC OF 15 HECTOR MINUTES HOSPITAL RAFI - 1 1 [facility] OUTPATIEN INC T EMERGENCY 08536 RAFI 1 1 [facility] DEPARTMEN INC T VISIT LOW/MODER SEVERITY EMERGENCY 48434 PAO CEDENO 1 1 [facility] DEPARTMEN T VISIT HIGH/URGE NT SEVERITY OFFICE 19460 BESSON BESSON OUTPATIEN 1 1 CINDY CINDY T VISIT 5 MINUTES OFFICE 02066 [facility] OUTPATIEN 1 1 [facility] T VISIT CLINIC OF 15 HECTOR MINUTES HOSPITAL RAFI - 1 1 [facility] OUTPATIEN INC T EMERGENCY 42826 JOSEPH HIGGINS ROSE 1 1 EMERGENCY DEPARTMEN SERVICES T VISIT HIGH/URGE NT SEVERITY EMERGENCY 87982 RAFI 1 1 [facility] DEPARTMEN INC T VISIT LOW/MODER SEVERITY HOSPITAL RAFI - 1 1 [facility] OUTPATIEN INC T EMERGENCY 19694 JOSEPH HIGGINS ROSE 1 1 EMERGENCY DEPARTMEN SERVICES T VISIT MODERATE SEVERITY HOSPITAL RAFI - 1 1 [facility] OUTPATIEN INC T EMERGENCY 86714 RAFI 1 1 [facility] DEPARTMEN INC T VISIT LOW/MODER SEVERITY OFFICE 04916 [place] BERE OUTPATIEN 1 1 [place] NIRANJAN T VISIT INTERNAL 10 MEDI MINUTES HOSPITAL RAFI - 1 1 [facility] OUTPATIEN INC T OFFICE 72350 [place] BERE OUTPATIEN 1 1 [place] NIRANJAN T VISIT INTERNAL 15 MEDI MINUTES OFFICE 45832 [place] BERE OUTPATIEN 1 1 [place] NIRANJAN T VISIT INTERNAL 15 MEDI MINUTES EMERGENCY 90121 JOSEPH CEDENO 1 1 EMERGENCY [facility] DEPARTMEN SERVICES T VISIT HIGH/URGE NT SEVERITY EMERGENCY 48477 RAFI 1 1 [facility] DEPARTMEN INC T VISIT LOW/MODER SEVERITY HOSPITAL RAFI - 1 1 [facility] OUTPATIEN INC T OFFICE 28190 [place] BERE OUTPATIEN 1 1 [place] NIRANJAN T VISIT INTERNAL 15 MEDI MINUTES EMERGENCY 42635 RAFI 0 0 [facility] DEPARTMEN INC T VISIT MODERATE SEVERITY HOSPITAL RAFI - 0 0 [facility] OUTPATIEN INC T EMERGENCY 85017 JOSEPH MERLOS, OSMANYT 0 0 EMERGENCY [facility] VISIT SERVICES HIGH SEVERITY& ASSOCIATE THREAT S FUNCJ EMERGENCY 07232 RAFI 0 0 [facility] DEPARTMEN INC T VISIT LOW/MODER SEVERITY HOSPITAL RAFI - 0 0 [facility] OUTPATIEN INC T OFFICE 22096 [place] JUDY OUTPATIEN 0 0 NICHOLE MACHADO T VISIT INTERNAL 15 MEDI MINUTES OFFICE 88106 [place] MCKEMIE OUTPATIEN 0 0 NICHOLE LYON LUZ T VISIT INTERNAL 15 MED MINUTES OFFICE 41969 [place] JUDY OUTPATIEN 0 0 NICHOLE MACHADO T VISIT INTERNAL 15 MEDI MINUTES OFFICE 10105 [place] BESBERNICE, OUTPATIEN 0 0 NICHOLE Peng T VISIT INTERNAL 15 MED MINUTES EMERGENCY 14765 JOSEPH CEDENO, 0 0 EMERGENCY [facility] T VISIT MODERATE ASSOCIATE SEVERITY [facility] RAFI - 0 0 [facility] OUTPATIEN INC T EMERGENCY 39439 RAFI 0 0 [facility] DEPARTMEN INC T VISIT LOW/MODER SEVERITY OFFICE 65417 [place] MCKEMIE OUTPATIEN 9 9 NICHOLE , T VISIT INTERNAL KHALIDA F 15 MED MINUTES HOSPITAL RAFI - 9 9 [facility] OUTPATIEN INC T EMERGENCY 90406 RAFI 9 9 [facility] DEPARTMEN INC T VISIT LIMITED/M INOR PROB HOSPITAL RAFI - 9 9 [facility] OUTPATIEN INC T EMERGENCY 30324 JOSEPH CEDENO, 9 9 EMERGENCY [facility] SERVICES T VISIT MODERATE ASSOCIATE SEVERITY [facility] RAFI - 9 9 [facility] OUTPATIEN INC T OFFICE 43035 ISAI ALEX OUTWILDER 9 9 DAWOOD Brunson T VISIT 15 MINUTES OFFICE 99200 ISAI ALEX OUTPATIEN 9 9 DAWOOD Brunson T NEW 30 MINUTES EMERGENCY 93854 JOSEPH KAPLAN, 9 9 EMERGENCY [facility] DEPARTMEN SERVICES T VISIT MODERATE ASSOCIATE SEVERITY S EMERGENCY 89661 RAFI 9 9 [facility] DEPARTMEN INC T VISIT LOW/MODER SEVERITY HOSPITAL RAFI - 9 9 [facility] OUTPATIEN INC T EMERGENCY 60028 RAFI 9 9 [facility] DEPARTMEN INC T VISIT LOW/MODER SEVERITY HOSPITAL RAFI - 9 9 [facility] OUTPATIEN INC T EMERGENCY 79712 JOSEPH MERLOS, 9 9 [facility] T VISIT MODERATE ASSOCIATE SEVERITY S EMERGENCY 28882 TRACIE CEDENO, [address] [facility] T VISIT ON MODERATE SEVERITY HOSPITAL RAFI - 9 9 [facility] OUTPATIEN INC T EMERGENCY 12594 RAFI 9 9 [facility] DEPARTMEN INC T VISIT LOW/MODER SEVERITY HOSPITAL RAFI - 8 8 [facility] OUTPATIEN INC T EMERGENCY 57031 TRACIE MCDANIEL, 8 8 [facility] T VISIT ON MODERATE SEVERITY EMERGENCY 04256 RAFI 8 8 [facility] DEPARTMEN INC T VISIT LOW/MODER SEVERITY OFFICE 23653 HOOD, HOOD, CONSULTAT 8 8 LIZZETTE B LIZZETTE B ION NEW/ESTAB PATIENT 40 MIN OFFICE 07487 DHS/CO RAFI OUTPATIEN 8 8 HEALTH CO HE[facility] T NEW [facility] MINUTES BANK ACCT PERIODIC 96667 [place] ANSON PREVENTIV 8 8 NICHOLE LYON E MED EST INTERNAL KHALIDA Dontae PATIENT MED OFFICE 42124 ROLDAN TYLER 8 8 NICHOLE Peng T VISIT INTERNAL 15 MED MINUTES OFFICE 19643 SANAZ YO OUTPATIEN 8 8 PRABHJOT Peng T VISIT 15 MINUTES
--- OUTSIDE RECORDS SUMMARY | 2017-04-11 18:29 | External Medical Summary Rpt ---
Author Author REDDYCARRIE Holt, KENNETH Production Organization KENNETH [employer] Address Unknown Phone Unavailable Results CBC W Auto Differential panel in Blood Observa Value Referen Units Interpr Notes Date tion ce etation Range Granulocy 1.8 - 7.8 K/mm3 Normal No Jan 19 darlene informati 2016 9:25 [#/volume on in AM ] in source Blood by data Automated count Granulocy 37.0 - % Normal No Jan 19 darlene/100 80.0 informati 2017 9:25 leukocyte on in AM s in source Blood by data Automated count Hematocri 37.0 - % Normal No Jan 19 t [Volume 47.0 informati 2016 9:25 on in AM Fraction] source of Blood data Hemoglobi 12.2 - g/dL Normal No Jan 19 n 16.2 informati 2016 9:25 [Mass/vol on in AM ume] in source Blood data Lymphocyt 0.7 - 4.5 K/mm3 Normal No Jan 19 es informati 2017 9:25 [#/volume on in AM ] in source Unspecifi data ed specimen by Automated count Lymphocyt 10 - 50.0 % Normal No Jan 19 es informati 2016 9:25 [#/volume on in AM ] in source Unspecifi data ed specimen by Automated count Erythrocy 27 - 31.2 pg High No Jan 19 te mean informati 2016 9:25 corpuscul on in AM ar source hemoglobi data n [Entitic mass] Erythrocy 31.8 - g/dl Normal No Jan 19 te mean 35.4 informati 2017 9:25 corpuscul on in AM ar source hemoglobi data n concentra tion [Mass/vol ume] by Automated count Erythrocy 82.2 - fL Normal No Jan 19 te mean 97.8 informati 2016 9:25 corpuscul on in AM ar volume source [Entitic data volume] by Automated count Monocytes 0.1 - 1.0 K/mm3 Normal No Jan 19 informati 2016 9:25 [#/volume on in AM ] in source Blood by data Automated count Monocytes 1.7 - 9.3 % Normal No Jan 19 /100 informati 2017 9:25 leukocyte on in AM s in source Blood by data Automated count Platelets 142 - 424 K/mm3 Normal No Jan 19 informati 2017 9:25 [#/volume on in AM ] in source Blood data Erythrocy 4.2 - 5.4 M/mm3 Normal No Jan 19 darlene informati 2016 9:25 [#/volume on in AM ] in source Amniotic data fluid Erythrocy 11.5 - % Normal No Jan 19 te 17.5 informati 2016 9:25 distribut on in AM ion width source [Entitic data volume] by Automated count Leukocyte 4.8 - K/mm3 Normal No Jan 19 s 10.8 informati 2016 9:25 [#/volume on in AM ] in source Blood data Comprehensive metabolic 2000 panel in Serum or Plasma Observa Value Referen Units Interpr Notes Date tion ce etation Range Albumin/G 1.1 - 1.8 No Normal No Jan 19 lobulin informati informati 2017 9:25 [Mass on in on in AM ratio] in source source Serum or data data Plasma Albumin 3.4 - 5.0 gm/dL Normal No Jan 19 [Mass/vol informati 2016 9:25 ume] in on in AM Serum or source Plasma data Alkaline 46 - 116 U/L Normal No Jan 19 phosphata informati 2016 9:25 se on in AM [Enzymati source c data activity/ volume] in Serum or Plasma Bilirubin 0.2 - 1.0 mg/dL Normal No Jan 19 .total informati 2016 9:25 [Mass/vol on in AM ume] in source Serum or data Plasma Urea 7 - 18 mg/dL Normal No Jan 19 nitrogen informati 2016 9:25 [Mass/vol on in AM ume] in source Serum or data Plasma Calcium 8.5 - mg/dL Normal No Jan 19 [Mass/vol 10.1 informati 2017 9:25 ume] in on in AM Serum or source Plasma data Chloride 98 - 107 mmoL/L Normal No Jan 19 [Moles/vo informati 2016 9:25 lume] in on in AM Serum or source Plasma data Carbon 21.0 - mmoL/L Normal No Jan 19 dioxide, 32.0 informati 2016 9:25 total on in AM [Moles/vo source lume] in data Serum or Plasma Creatinin 0.55 - mg/dL Low No Jan 19 e 1.02 informati 2016 9:25 [Mass/vol on in AM ume] in source Serum or data Plasma Estimated 59- ML/MIN No REFERENCE Jan 19 informati RANGE: 2017 9:25 glomerula on in >60 AM r source ML/MIN/1. filtratio data 73 SQUARE n rate METERSIf (GF this patient is -A merican, then multiply theresult by 1.210. Globulin 1.3 - 3.2 gm/dL High No Jan 19 [Mass/vol informati 2016 9:25 ume] in on in AM Serum source data Glucose 74 - 106 mg/dL Normal No Jan 19 [Mass/vol informati 2016 9:25 ume] in on in AM Serum or source Plasma data Potassium 3.5 - 5.1 mmoL/L Normal No Jan 19 inform2016 9:25 [Moles/vo on in AM lume] in source Serum or data Plasma Sodium 136 - 145 mmoL/L Normal No Jan 19 [Moles/vo informati 2016 9:25 lume] in on in AM Serum or source Plasma data Aspartate 15 - 37 U/L Normal No Jan 19 informati 2016 9:25 aminotran on in AM sferase source [Enzymati data c activity/ volume] in Serum or Plasma Alanine 12 - 78 U/L Normal No Jan 19 aminotran informati 2016 9:25 sferase on in AM [Enzymati source c data activity/ volume] in Serum or Plasma Protein 6.4 - 8.2 gm/dL Normal No Jan 19 [Mass/vol informati 2016 9:25 ume] in on in AM Serum or source Plasma data Lipid 1996 panel in Serum or Plasma Observa Value Referen Units Interpr Notes Date tion ce etation Range Cholester < 200 mg/dL No No Jan 19 ol informati informati 2016 9:25 [Moles/vo on in on in AM lume] in source source Unspecifi data data ed specimen Cholester 40 - 60 MG/DL Low No Jan 19 ol in HDL informati 2016 9:25 on in AM [Mass/vol source ume] in data Serum or Plasma Cholester 0 - 130 mg/dL Normal No Jan 19 ol in LDL informati 2016 9:25 on in AM [Mass/vol source ume] in data Serum or Plasma by calculati on Triglycer 30 - 200 mg/dL Normal No Jan 19 cecilio informati 2016 9:25 [Moles/vo on in AM lume] in source Serum or data Plasma Cholester 0 - 40 No Normal No Jan 19 ol in informati informati 2016 9:25 VLDL on in on in AM [Mass/vol source source ume] in data data Serum or Plasma Thyroxine (T4) [Mass/volume] in Serum or Plasma Observa Value Referen Units Interpr Notes Date tion ce etation Range Thyroxine 4.7 - ug/dl Normal No Jan 19 (T4) 13.3 informati 2016 9:25 [Mass/vol on in AM ume] in source Serum or data Plasma Thyrotropin [Units/volume] in Serum or Plasma Observa Value Referen Units Interpr Notes Date tion ce etation Range Thyrotrop 0.358 - uIU/ml No No Jan 19 in 3.740 informati informati 2016 9:25 [Units/vo on in on in AM lume] in source source Serum or data data Plasma Hemoglobin A1c in Blood Observa Value Referen Units Interpr Notes Date tion ce etation Range Hemoglo 5.5 0.0 - % Normal < 6% Jan 19 bin A1c 7.0 NON-KADEEM 2017 in BET 9:25 AM Blood LEVEL< 7% CONTROL LED DIABETI C LEVEL> 8% POORLY CONTROL LED DIABETI C LEVEL Urinalysis dipstick W Reflex Microscopic panel in Urine Observa Value Referen Units Interpr Notes Date tion ce etation Range Appeara CLEAR CLEAR No No No Jan 13 nce of informa informa informa 2017 Urine tion in tion in tion in 12:16 source source source AM data data data Bilirub NEGATIV NEG No No No Jan 13 in E informa informa informa 2016 [Presen tion in tion in tion in 12:16 ce] in source source source AM Urine data data data by Test strip Erythro NEGATIV NEG No No No Jan 13 cytes E informa informa informa 2016 [Presen tion in tion in tion in 12:16 ce] in source source source AM Urine data data data Color YELLOW YELLOW No No No Jan 13 of informa informa informa 2017 Urine tion in tion in tion in 12:16 source source source AM data data data Glucose NEG No No No Jan 13 [Mass/vol informati informati informati 2017 ume] in on in on in on in 12:16 AM Urine by source source source Test data data data strip Ketones NEGATIV NEG mg/dL No No Jan 13 E informa informa 2016 [Presen tion in tion in 12:16 ce] in source source AM Urine data data by Automat ed test strip Mucus NEGATIV NEG No No No Jan 13 [Presen E informa informa informa 2016 ce] in tion in tion in tion in 12:16 Urine source source source AM sedimen data data data t by Light microsc opy Nitrite NEGATIV NEG No No No Jan 13 E informa informa informa 2016 [Presen tion in tion in tion in 12:16 ce] in source source source AM Urine data data data by Test strip pH of 5.0 - 8.5 No Normal No Jan 13 Urine informati informati 2017 on in on in 12:16 AM source source data data Protein NEG mg/dL No No Jan 13 [Mass/vol informati informati 2016 ume] in on in on in 12:16 AM Urine by source source Automated data data test strip Specific 1.005 - No Normal No Jan 13 gravity 1.030 informati informati 2016 of Urine on in on in 12:16 AM source source data data Urobili 0.2 NEG E.U./dL No No Jan 13 nogen informa informa 2016 [Presen tion in tion in 12:16 ce] in source source AM Urine data data by Test strip Urinalysis dipstick W Reflex Microscopic panel in Urine Observa Value Referen Units Interpr Notes Date tion ce etation Range Appeara CLEAR CLEAR No No No Jan 13 nce of informa informa informa 2017 Urine tion in tion in tion in 12:16 source source source AM data data data Bilirub NEGATIV NEG No No No Jan 13 in E informa informa informa 2016 [Presen tion in tion in tion in 12:16 ce] in source source source AM Urine data data data by Test strip Erythro NEGATIV NEG No No No Jan 13 cytes E informa informa informa 2016 [Presen tion in tion in tion in 12:16 ce] in source source source AM Urine data data data Color YELLOW YELLOW No No No Jan 13 of informa informa informa 2017 Urine tion in tion in tion in 12:16 source source source AM data data data Glucose NEG No No No Jan 13 [Mass/vol informati informati informati 2017 ume] in on in on in on in 12:16 AM Urine by source source source Test data data data strip Ketones NEGATIV NEG mg/dL No No Jan 13 E informa informa 2016 [Presen tion in tion in 12:16 ce] in source source AM Urine data data by Automat ed test strip Mucus NEGATIV NEG No No No Jan 13 [Presen E informa informa informa 2017 ce] in tion in tion in tion in 12:16 Urine source source source AM sedimen data data data t by Light microsc opy Mucus 3+ OCC No No No Jan 13 [Presen informa informa informa 2017 ce] in tion in tion in tion in 12:16 Urine source source source AM sedimen data data data t by Light microsc opy Nitrite NEGATIV NEG No No No Jan 13 E informa informa informa 2016 [Presen tion in tion in tion in 12:16 ce] in source source source AM Urine data data data by Test strip pH of 5.0 - 8.5 No Normal No Jan 13 Urine informati informati 2017 on in on in 12:16 AM source source data data Protein NEG mg/dL No No Jan 13 [Mass/vol informati informati 2017 ume] in on in on in 12:16 AM Urine by source source Automated data data test strip Specific 1.005 - No Normal No Jan 13 gravity 1.030 informati informati 2017 of Urine on in on in 12:16 AM source source data data Epithel 10-20 0 - 5 #/hpf No No Jan 13 ial informa informa 2017 cells.s tion in tion in 12:16 quamous source source AM data data [Presen ce] in Urine sedimen t by Microsc opy high power field Urobili 0.2 NEG E.U./dL No No Jan 13 nogen informa informa 2017 [Presen tion in tion in 12:16 ce] in source source AM Urine data data by Test strip Leukocy [10 O wbc/hpf No No Jan 13 darlene wbc/hpf informa informa 2017 [#/volu ; 20 tion in tion in 12:16 me] in wbc/hpf source source AM Urine ] data data Choriogonadotropin.beta subunit [Units] in 24 hour Urine Observa Value Referen Units Interpr Notes Date tion ce etation Range Choriogon NEG No No No Jan 13 adotropin informati informati informati 2017 .beta on in on in on in 12:16 AM subunit source source source [Units] data data data in 24 hour Urine CHLAMYDIA AND GONORRHEA TESTING Observa Value Referen Units Interpr Notes Date tion ce etation Range COLLECT AH/GENP No No No No Sep 11 OR ROBE informa informa informa informa 2017 tion in tion in tion in tion in 10:00 source source source source AM data data data data ETHNICI WHITE, No No No No Sep 11 TY NON-HIS informa informa informa informa 2017 PANIC tion in tion in tion in tion in 10:00 source source source source AM data data data data KIT 05-31-2 No No No No Sep 11 EXPIRAT 017 informa informa informa informa 2017 ION tion in tion in tion in tion in 10:00 DATE source source source source AM data data data data SYMPTOM NO No No No No Sep 11 S informa informa informa informa 2017 tion in tion in tion in tion in 10:00 source source source source AM data data data data REASON INITIAL No No No No Sep 11 FOR FAMILY informa informa informa informa 2017 REQUEST tion in tion in tion in tion in 10:00 PLANNIN source source source source AM G VISIT data data data data SPECIME URINE No No No No Sep 11 N informa informa informa informa 2017 SOURCE tion in tion in tion in tion in 10:00 source source source source AM data data data data PREGNAN NO No No No No Sep 11 T informa informa informa informa 2017 tion in tion in tion in tion in 10:00 source source source source AM data data data data CHART N/A No No No No Sep 11 NUMBER informa informa informa informa 2017 tion in tion in tion in tion in 10:00 source source source source AM data data data data Chlamyd NEGATIV No No No NEGATIV Sep 11 ia E informa informa informa E 2017 trachom tion in tion in tion in RESULT= 10:00 atis source source source WITHIN AM rRNA data data data NORMAL [Presen ce] in LIMITSP Unspeci OSITIVE fied specime RESULT= n by Probe & ABNORMA target LEQUIVO DAVIE amplifi RESULT= cation method INDETER MINATEU NSATISF ACTORY RESULT= INVALID Neisser NEGATIV No No No NEGATIV Sep 11 ia E informa informa informa E 2017 gonorrh tion in tion in tion in RESULT= 10:00 oeae source source source WITHIN AM rRNA data data data NORMAL [Presen ce] in LIMITSP Unspeci OSITIVE fied specime RESULT= n by Probe & ABNORMA target LEQUIVO DAVIE amplifi RESULT= cation method INDETER MINATEU NSATISF ACTORY RESULT= INVALID THE APTIMA COMBO 2 ASSAY IS NOT INTENDE D FOR THE EVALUAT ION OF SUSPECT EDSEXUA L ABUSE OR FOR OTHER MEDICO- LEGAL INDICAT IONS. FOR THOSE PATIENT S FORWHOM A FALSE POSITIV E RESULT MAY HAVE ADVERSE PSYCHO- SOCIAL IMPACT, [facility] NG.\.br \This report contain s patient informa tion that must be protect ed in accorda nce with the Health Insuran ce Portabi lity and Account ability Act. CHLAMYDIA AND GONORRHEA TESTING Observa Value Referen Units Interpr Notes Date tion ce etation Range COLLECT AH/GENP No No No No Sep 11 OR ROBE informa informa informa informa 2017 tion in tion in tion in tion in 10:00 source source source source AM data data data data ETHNICI WHITE, No No No No Sep 11 TY NON-HIS informa informa informa informa 2017 PANIC tion in tion in tion in tion in 10:00 source source source source AM data data data data KIT 05-31-2 No No No No Sep 11 EXPIRAT 017 informa informa informa informa 2017 ION tion in tion in tion in tion in 10:00 DATE source source source source AM data data data data SYMPTOM NO No No No No Sep 11 S informa informa informa informa 2017 tion in tion in tion in tion in 10:00 source source source source AM data data data data REASON INITIAL No No No No Sep 11 FOR FAMILY informa informa informa informa 2017 REQUEST tion in tion in tion in tion in 10:00 PLANNIN source source source source AM G VISIT data data data data SPECIME URINE No No No No Sep 11 N informa informa informa informa 2017 SOURCE tion in tion in tion in tion in 10:00 source source source source AM data data data data PREGNAN NO No No No No Sep 11 T informa informa informa informa 2017 tion in tion in tion in tion in 10:00 source source source source AM data data data data CHART N/A No No No No Sep 11 NUMBER informa informa informa informa 2017 tion in tion in tion in tion in 10:00 source source source source AM data data data data Chlamyd Pending No No No No Sep 11 ia informa informa informa informa 2017 trachom tion in tion in tion in tion in 10:00 atis source source source source AM rRNA data data data data [Presen ce] in Unspeci fied specime n by Probe & target amplifi cation method Neisser Pending No No No \.br\Sep 11 ia informa informa informa is 2017 gonorrh tion in tion in tion in report 10:00 oeae source source source contain AM rRNA data data data s [Presen patient ce] in Unspeci informa fied tion specime that n by must be Probe & target protect ed in amplifi accorda cation nce method with the Health Insuran ce Portabi lity and Account ability Act.
--- OUTSIDE RECORDS SUMMARY | 2017-04-11 18:29 | External Medical Summary Rpt ---
Demographics Preferred Language Scottish Marital Status Unknown Voodoo Affiliation Unknown Race Unknown Ethnic Group Unknown Author Author KENNETH Address Unknown Phone Immunization No patient found.
--- OUTSIDE RECORDS SUMMARY | 2017-04-11 18:29 | External Medical Summary Rpt ---
Demographics Preferred Language Palauan Marital Status Unknown Spiritism Affiliation Unknown Race Unknown Ethnic Group Unknown Author Author KENNETH Address Unknown Phone Immunization No patient found.
--- OUTSIDE RECORDS SUMMARY | 2017-04-11 18:29 | External Medical Summary Rpt ---
[...] MAY HAVE ADVERSE PSYCHO- SOCIAL IMPACT, [facility].br \This report contain s [...]
== END 2017-03-31 13:11 | disposition home or self-care (01) ==
LOC: UTC 12:38
DX: J20.9 Acute bronchitis, unspecified (principal); F17.210 Nicotine dependence, cigarettes, uncomplicated; Z88.1 Allergy status to other antibiotic agents

== ENCOUNTER → 2017-04-09 | Outpatient (CLI) | payer MEDICAID ==
[~2017-04-09] MED LIST: AMITRIPTYLINE 550 MG PO; AMOXICILLIN 25250 MG PO; AMOXICILLIN 50500 MG PO; BENADRYL 25MG C25 MG PO; BENTYL10 MG PO; BIRTH CONTROL PILL PO; BUSPAR 10MG TAB10 MG PO; CEFDINIR300 MG PO; CEFZIL250 MG PO; CETIRIZINE HCL10 MG PO; CIPRO 500MG TA500 MG PO; CITALOPRAM HYDR10 MG PO; CYCLOBENZ5 MG PO; CYTOTEC200 MCG PO; DEPO PROVER150 MG/ML IM; DICLOFENAC SODI75 M3 PO; FLUTICASONE 50M16 GM; IBUPROFEN400 MG PO; INDERAL 20MG. T20 MG PO; IRON TABLETS325 MG PO; KEFLEX 250MG.250 MG PO; KEFLEX 500MG.500 MG PO; LORTAB 5/500 501 TAB PO; MACROBID 100MG100 MG PO; MOTRIN 400MG.400 MG PO; MUCINEX DM1 TER PO; NUVARING1 ICR VG; OMEPRAZOLE20 MG PO; PHENERGAN VC +120 ML PO; PREDNISONE 20MG20 MG PO; PRENATAL PLUS1 TA1 PO; PRENATAL VITAMI1 TA3 PO; RA PRENATAL TABLET PO; SULFAMETH/TRIME1 TA1 PO; TRAMADOL 50MG T50 MG PO; TRIAMCINOL15 GM/TUBE TP; TYLENOL325 MG PO; ULTRACET 325 MG1 TAB PO; ZANTAC 150150 MG PO
== END ==
LOC: LAB 16:43
PROVIDERS: Nurse Practitioner Family
DX: R53.83 Other fatigue (principal)

== ENCOUNTER 2017-05-07 17:27 | Emergency (ER) | payer MEDICAID ==
[~2017-05-07] VITALS: Ht 157.5 cm; Wt 83.5 kg
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
--- OUTSIDE RECORDS SUMMARY | 2017-05-07 17:34 | External Medical Summary Rpt | CCD ---
Demographics Preferred Language Nepali Marital Status Unknown Evangelical Affiliation Unknown Race Unknown Ethnic Group Unknown Author Author , KENNETH COOPER Address Unknown Phone Immunization No patient found.
--- OUTSIDE RECORDS SUMMARY | 2017-05-07 17:34 | External Medical Summary Rpt | CCD ---
Demographics Preferred Language Amharic Marital Status Unknown Alevism Affiliation Unknown Race Unknown Ethnic Group Unknown Author Author , ATUL BLAKELYCARRIE Address Unknown Phone [email or web address] Care Team Providers Care Engineering Document Control Clerk Name Role Phone [facility] Unavailable Unavailable [id number] # [phone], [facility] [id number] # [phone] Purpose Continuity of Care Document - 09-28-2009 through 2016 Medications Na ND Rx Da Fi Fi Am Da Di Ph RX Ph St me C No te ll ll ou ys ag ar # ys at rm s nt no ma ic us Or Da si cy ia de te s n re d PA 65 09 10 11 30 30 RI [...] CE 0 PH RT TA AR B AR MA NO CY PH N 03 37 [...] NT 03 93 8 # 03 93 PA 65 09 09 11 30 30 RI [...] AI CE ZA 11 11 11 D PA 0 PH SA IN AR RA E MA H 10 CY L MG 03 93 TA 8 BL # ET 03 93 NA 00 03 03 28 14 RI 87 FL Ac PA 09 -1 -1 .0 TE 43 OR [...] BL 93 ET 8 # 03 93 PA 37 08 01 5 28 28 RI [...] BL 93 ET 8 # 03 93 PA 37 08 12 5 28 28 RI [...] BL 93 ET 8 # 03 93 PA 37 08 10 5 28 28 RI [...] 20 20 AI 80 10 10 D AR 1 PH CH AR AE MA L [...] BL 93 ET 8 # 03 93 PA 37 08 09 5 28 28 RI 84 BE Ac IL 00 -2 -2 .0 TE 69 SS ti OS 00 4- 0- 00 05 ON ve EC 45 20 20 AI [address] OT 3 PH EP C AR HE 20 MA N .6 CY A MG 03 93 TA 8 BL # ET 03 93 PA 37 08 08 5 28 28 RI [...] ti MC 20 7- 2- 00 82 AR ve IN 06 20 20 AI E OL 43 10 10 D JR ON 6 PH E AR WI 0. MA LL 1% CY IA M CR 03 F EA 93 M 8 # 03 93 PA 37 05 05 28 28 RI 83 [...] ti MC 20 7- 7- 00 82 AR ve IN 06 20 20 AI E OL 43 10 10 D JR ON 6 PH E AR WI 0. MA LL 1% CY IA M CR 03 F EA 93 M 8 # 03 93 PE 45 05 05 60 5 RI 83 MC Ac RM 80 -0 -0 .0 TE 29 KE ti ET 20 7- 7- 00 83 AR ve HR 26 20 20 AI E [...]
--- OUTSIDE RECORDS SUMMARY | 2017-05-07 17:34 | External Medical Summary Rpt | CCD ---
Demographics Preferred Language French Marital Status Unknown Holiness Affiliation Unknown Race Unknown Ethnic Group Unknown Author Author , ATUL BLAKELYCARRIE Address Unknown Phone .gBox Care Team Providers Care Corporate Administrator Name Role Phone [facility] Unavailable Unavailable [id number] # [phone], [facility] [id number] # [phone] Purpose Continuity of Care Document - 09-28-2009 through 2016 Medications Na ND Rx Da Fi Fi Am Da Di Ph RX Ph St me C No te ll ll ou ys ag ar # ys at rm s nt no ma ic us Or Da si cy ia de te s n re d AL 65 09 10 11 30 30 RI [...] CE 0 PH RT TA AR B WY MA NO CY PH N 03 37 [...] NT 03 93 8 # 03 93 AL 65 09 09 11 30 30 RI [...] AI CE ZA 11 11 11 D AL 0 PH SA IN AR RA E MA H 10 CY L MG 03 93 TA 8 BL # ET 03 93 NA 00 03 03 28 14 RI 87 FL Ac AL 09 -1 -1 .0 TE 43 OR [...] BL 93 ET 8 # 03 93 AL 37 08 01 5 28 28 RI [...] BL 93 ET 8 # 03 93 AL 37 08 12 5 28 28 RI [...] BL 93 ET 8 # 03 93 AL 37 08 10 5 28 28 RI [...] 20 20 AI 80 10 10 D W[place] 1 PH CH AR AE MA L [...] BL 93 ET 8 # 03 93 AL 37 08 09 5 28 28 RI 84 BE Ac IL 00 -2 -2 .0 TE 69 SS ti OS 00 4- 0- 00 05 ON ve EC 45 20 20 AI [address] OT 3 PH EP C AR HE 20 MA N .6 CY A MG 03 93 TA 8 BL # ET 03 93 AL 37 08 08 5 28 28 RI [...] ti MC 20 7- 2- 00 82 [place] ve IN 06 20 20 AI E OL 43 10 10 D JR ON 6 PH E AR WI 0. MA LL 1% CY IA M CR 03 F EA 93 M 8 # 03 93 AL 37 05 05 28 28 RI 83 [...] ti MC 20 7- 7- 00 82 [place] ve IN 06 20 20 AI E OL 43 10 10 D JR ON 6 PH E AR WI 0. MA LL 1% CY IA M CR 03 F EA 93 M 8 # 03 93 PE 45 05 05 60 5 RI 83 MC Ac RM 80 -0 -0 .0 TE 29 KE ti ET 20 7- 7- 00 83 [place] ve HR 26 20 20 AI E [...]
--- OUTSIDE RECORDS SUMMARY | 2017-05-07 17:34 | External Medical Summary Rpt | CCD ---
Demographics Preferred Language Danish Marital Status Unknown Jehovah'S Witness Affiliation Unknown Race Unknown Ethnic Group Unknown Author Author , KENNETH COOPER Address Unknown Phone Immunization No patient found.
--- OUTSIDE RECORDS SUMMARY | 2017-05-07 17:35 | External Medical Summary Rpt ---
Author Author KENNETH Yanet, KENNETH [employer] Organization [employer]H [employer] Address Unknown Phone Unavailable Results Cobalamin (Vitamin B12) [Mass/volume] in Serum Observa Value Referen Units Interpr Notes Date tion ce etation Range Cobalamin 211 - 946 pg/mL No Performed Apr 09 (Vitamin informati at: CB 2016 B12) on in - [facility] 12:00 PM [Mass/vol source ume] in data [id number] Serum 0 [place], [place] [id number] Founder & Ceo: Tre Devi PhD, Phone: [phone] Folate [Mass/volume] in Serum or Plasma Observa Value Referen Units Interpr Notes Date tion ce etation Range Folate >3.0 ng/mL No A serum Apr 09 [Mass/vol informati folate 2016 ume] in on in concentra 12:00 PM Serum or source tion of Plasma data less than 3.1 ng/mL isconside red to represent clinical deficienc y.Perform ed at: CB - [facility] [id number] [place], [place] [id number] Founder & Ceo: Tre Devi PhD, Phone: [phone] CBC W Auto Differential panel in Blood Observa Value Referen Units Interpr Notes Date tion ce etation Range Granulocy 1.8 - 7.8 K/mm3 Normal No Jan 19 darlene informati 2016 9:25 [#/volume on in AM ] in source Blood by data Automated count Granulocy 37.0 - % Normal No Jan 19 darlene/100 80.0 informati 2016 9:25 leukocyte on in AM s in [...] K/mm3 Normal No Jan 19 es informati 2016 [...] No Jan 19 te mean 35.4 informati 2016 9:25 corpuscul on in AM [...] 424 K/mm3 Normal No Jan 19 informati 2016 [...] Normal No Jan 19 lobulin informati informati 2016 9:25 [Mass on in on in AM ratio] in source source Serum or data data Plasma Albumin 3.4 - 5.0 gm/dL Normal No Jan 19 [Mass/vol informati 2017 9:25 ume] in on in AM Serum or source Plasma data Alkaline 46 - 116 U/L Normal No Jan 19 phosphata informati 2017 9:25 se on in AM [Enzymati source c data activity/ volume] in Serum or Plasma Bilirubin 0.2 - 1.0 mg/dL Normal No Jan 19 .total informati 2017 9:25 [Mass/vol on in AM ume] in source Serum or data Plasma Urea 7 - 18 mg/dL Normal No Jan 19 nitrogen informati 2017 9:25 [Mass/vol on in AM ume] in source Serum or data Plasma Calcium 8.5 - mg/dL Normal No Jan 19 [Mass/vol 10.1 informati 2016 9:25 ume] in on in AM Serum or source Plasma data Chloride 98 - 107 mmoL/L Normal No Jan 19 [Moles/vo informati 2016 9:25 lume] in on in AM Serum or source Plasma data Carbon 21.0 - mmoL/L Normal No Jan 19 dioxide, 32.0 informati 2017 9:25 total on in AM [Moles/vo source [...] gm/dL High No Jan 19 [Mass/vol informati 2017 9:25 ume] in on in AM Serum source data Glucose 74 - 106 mg/dL Normal No Jan 19 [Mass/vol informati 2017 9:25 ume] in on in AM Serum or source Plasma data Potassium 3.5 - 5.1 mmoL/L Normal No Jan 19 informati 2017 9:25 [Moles/vo on in AM lume] in source Serum or data Plasma Sodium 136 - 145 mmoL/L Normal No Jan 19 [Moles/vo informati 2017 9:25 lume] in on in AM Serum or source Plasma data Aspartate 15 - 37 U/L Normal No Jan 19 informati 2017 9:25 aminotran on in AM sferase source [...] ume] in data Serum or Plasma by calcsonia on Triglycer 30 - 200 mg/dL Normal [...] 19 bin A1c 7.0 NON-KADEEM 2017 in [facility] 9:25 AM Blood LEVEL< 7% CONTROL LED DIABETI C LEVEL> 8% POORLY CONTROL LED DIABETI C LEVEL Urinalysis dipstick W Reflex Microscopic panel in Urine Observa Value Referen Units Interpr Notes Date tion ce etation Range Appeara CLEAR CLEAR No No No Jan 13 nce of informa informa informa 2016 Urine tion in ti in tion in 12:16 source source source AM data data data Bilirub NEGATIV NEG No No No Jan 13 in E informa informa informa 2016 [Presen tion in ti in in 12:16 ce] in source source source AM Urine data data data by Test strip Erythro NEGATIV NEG No No No Jan 13 cytes E informa informa informa 2016 [Presen tion in ti in ti in 12:16 ce] in source source source AM Urine data data data Color YELLOW YELLOW No No No Jan 13 of informa informa informa 2016 Urine tion in in ti in 12:16 source source source AM data data data Glucose NEG No No No Jan 13 [Mass/vol informati informati informati 2016 ume] in on in on in on in 12:16 AM Urine by source source source Test data data data strip Ketones NEGATIV NEG mg/dL No No Jan 13 E informa informa 2016 [Presen tion in ti in 12:16 ce] in source source AM Urine data data by Automat ed test strip Mucus NEGATIV NEG No No No Jan 13 [Presen E informa informa informa 2016 ce] in tion in ti in tion in 12:16 Urine source source source AM sedimen data data data t by Light microsc opy Nitrite NEGATIV NEG No No No Jan 13 E informa informa informa 2016 [Presen tion in tion in in 12:16 ce] in source source source AM Urine data data data by Test strip pH of 5.0 - 8.5 No Normal No Jan 13 Urine informati informati 2016 on in on in 12:16 AM source [...] No Jan 13 of informa informa informa 2016 Urine tion in tion in tion in 12:16 source source source AM data data data Glucose NEG No No No Jan 13 [Mass/vol informati informati informati 2016 ume] in on in on in on [...] No Jan 13 [Presen informa informa informa 2016 ce] in tion [...] MAY HAVE ADVERSE PSYCHO- SOCIAL IMPACT, THE CDCRECO MMENDS RETESTI NG.\.br \This report contain s patient informa tion that must be protect ed in accorda nce with the Health Insuran ce [place] lity and Account ability Act. CHLAMYDIA AND [...]
--- OUTSIDE RECORDS SUMMARY | 2017-05-07 17:35 | External Medical Summary Rpt ---
[...] 12:00 PM [Mass/vol source ume] in data [id number] Serum 0 [place], [place] [id number] Real Estate Loan Officer: Tre Devi PhD, Phone: [phone] Folate [Mass/volume] in Serum or Plasma Observa Value Referen Units Interpr Notes Date tion ce etation Range Folate >3.0 ng/mL No A serum Apr 09 [Mass/vol informati folate 2016 ume] in on in concentra 12:00 PM Serum or source tion of Plasma data less than 3.1 ng/mL isconside red to represent clinical deficienc y.Perform ed at: CB - [facility] [id number] [place], [place] [id number] Real Estate Loan Officer: Tre Devi PhD, Phone: [phone] CBC W Auto Differential panel in [...] 19 bin A1c 7.0 NON-KADEEM 2017 in [facility] 9:25 AM Blood LEVEL< 7% CONTROL LED [...]
[2017-05-07] MEDS ORDERED: ADIPEX-P37.5 M2 PO (17:51)
--- NOTE | 2017-05-07 18:24 | Urgent Treatment Center Report ---
History of Present Issue Date/Time Seen by Provider 05/07/17 2354 Visit Reason Pt arrived:Walked Presenting Problem:PT C/O VOMITING, FEVER, BODY ACHES, DIARRHEA Location if Accident: Onset of symptoms date/time:/ or onset unknown for:MEDICAL HX UNKNOWN Have you (or family members/close friends) recently traveled outside the [place]? N If Yes, where/when: Have you had exposure to infectious disease within the past month? TB? Other? Specify: c/o fever up to 102, bodyaches, chills, cough, episodes of diarrhea and vomiting start 2 days ago, < 48 hours ago. son tested positive for flu around the time symptoms started. Other than tylenol and motrin working for fever, aches, chills, hasn't taken or tried anything else. Denies SOA, wheezing. No ear pain. Has not had flu vaccine. Daughter and agricultural engineering teacher tested positive today for flu A. Source patient Exam Limitations no limitations ALLERGIES Coded Allergies: PEANUT BUTTER (01/13/17) azithromycin (01/13/17) cinnamon (01/13/17) corn (01/13/17) garlic (01/13/17) onion (01/13/17) Home Medications Reported Medications Buspirone Hcl (Buspar 10MG) 10 MG PO TID Phentermine HCl (Adipex-P) 37.5 MG PO DAILY History Medical History General CAD? No Angina: No [place]: No Hypertension? No Hyperlipidemia? No CHF? No DVT? No PE? No COPD? No Asthma? No Anemia? No GERD? No Gastric ulcers? No GI Bleed? No Hernia? No Thyroid Problems? No Hypothyroidism? No CVA? No Seizures? No Diabetes? No Renal Insuffiency? No UTI? No Stones? No BPH? No GB Disease: Yes Nephritic Syndrome? No Asplenia? No Hepatitis? No Sickle Cell Disease? No Arthritis? No Migraines? No Cataracts? No Glaucoma? No MRSA? Yes HIV? No TB? No Anxiety? No Depression? Yes Cancer? No More? Yes Additional hx: LOWER BACK PAIN Immunization HX DT/Tetanus Unknown Flu Refused Pneumonia Refuses Surgical Hx Previous Surgery?Y Tonsils CHOLECYSTECTOMY WISDOM TEETH Family History Family HX Diabetes Yes CAD No Hypertension Yes Hyperlipidemia No Cancer No TB No Social History Smoking Hx Smoker: Current Every Day Smoker Tobacco: Yes Type Cigarettes Packs/day < 1 Pack Alcohol Alcohol: No Review of Systems All Other Systems Reviewed and Negative Constitutional see HPI Eyes denies drainage ENT see HPI, nose discharge, nose congestion, throat pain. denies: throat swelling. Respiratory see HPI Cardiovascular denies chest pain Gastrointestinal denies abdominal pain, denies nausea Genitourinary denies: dysuria, frequency. Musculoskeletal see HPI Skin denies rash Psychiatric/Neurological headache, denies other (dizziness) Physical Exam Vital Signs Vital Signs Date Time Temp Pulse Resp B/P Pulse O2 O2 Flow FiO2 Ox Delivery Rate 05/07 185 98.4 105 20 142/98 98 05/07 174 98.4 105 20 142/98 98 General Appearance normal appearance, no apparent distress Ear, Nose, Throat normal ENT inspection (x/ rhinorrhea) Neck non-tender, supple Respiratory Status Yes: trachea midline, chest symmetrical, non productive cough. No: respiratory distress, use of accessory muscles, pain on inspiration, pain on expiration. Lung Sounds anterior: lungs clear. posterior: lungs clear. bilateral: lungs clear. Cardiovascular no peripheral edema, no murmur, tachycardia Gastrointestinal normal bowel sounds, non tender, soft, no guarding, no rebound Neurologic alert, oriented x 3 Skin normal color, warm/dry Lymphatic no adenopathy Medical Decision Making LABS/Meds/Orders Pt receiving controlled substance in ED? No Results/Orders Laboratory Tests 05/07/176: Influenza Type A Ag DETECTED H, Influenza Type B Ag DETECTED H Orders Procedure Date/time Status [facility] FLU A,B 05/07 1746 Complete Departure Departure Time of Disposition 1846 Disposition [place] Home or Self Care(routine) Clinical Impression Primary Impression: Influenza A (H1N1) Condition STABLE Referrals Vipin ROY,Eder Le (Family) IMMEDIATELY for new or worsening symptoms OR no noticeable improvement over the next 72 hours. 911 for difficulty breathing Patient Instructions DI for Influenza -- Adult Additional Instructions * Start Tamiflu today if you are going to take it. Discussed risks and possible benefits. * Lots of rest * Increase fluids, water, gatorade, powerade, pedialyte if /toddler/child * Monitor Temp. Tylenol every 4 hours as needed no more then 5 times a day or 4000mg in 24 hours and/or ibuprofen every 6 hours as needed no more then 3200mg in 24 hours (as long as your primary care doctor has told you that it is ok to take both) for fever/aches/pain. ER if fever no less than 101 despite tylenol and Ibuprofen * You (or your child) are contagious until no fever, aches, chills x 24 hours without medication for symptoms. Do NOT return to work sooner. Discharge Counseling Counseled pt/family regarding diagnosis, test results, medications/RX, home care, follow up needs Prescriptions Current Visit Scripts Oseltamivir Phosphate (Tamiflu 75MG Capsule) 75 MG PO BID #10 CAP D-METHORPHAN HB/P-EPD HCL/BPM (Bromfed Dm Cough Syrup) 10 ML PO QIDP PRN cough #240 ML at 8465
--- NOTE | 2017-05-07 18:24 | Urgent Treatment Center Report ---
History of Present Issue Date/Time Seen by Provider 05/07/17 3574 Visit Reason Pt arrived:Walked Presenting Problem:PT C/O VOMITING, FEVER, BODY ACHES, DIARRHEA Location if Accident: Onset of symptoms date/time:/ or onset unknown for:MEDICAL HX UNKNOWN Have you (or family members/close friends) recently traveled outside the [place]? N If Yes, where/when: Have you had exposure to infectious disease within the past month? TB? Other? Specify: c/o fever up to 102, bodyaches, chills, cough, episodes of diarrhea and vomiting start 2 days ago, < 48 hours ago. son tested positive for flu around the time symptoms started. Other than tylenol and motrin working for fever, aches, chills, hasn't taken or tried anything else. Denies SOA, wheezing. No ear pain. Has not had flu vaccine. Daughter and side gluer tested positive today for flu A. Source patient Exam Limitations no limitations ALLERGIES Coded Allergies: PEANUT BUTTER (01/13/17) azithromycin (01/13/17) cinnamon (01/13/17) corn (01/13/17) garlic (01/13/17) onion (01/13/17) Home Medications Reported Medications Buspirone Hcl (Buspar 10MG) 10 MG PO TID Phentermine HCl (Adipex-P) 37.5 MG PO DAILY History Medical History General CAD? No Angina: No [place]: No Hypertension? No Hyperlipidemia? No CHF? No DVT? No PE? No COPD? No Asthma? No Anemia? No GERD? No Gastric ulcers? No GI Bleed? No Hernia? No Thyroid Problems? No Hypothyroidism? No CVA? No Seizures? No Diabetes? No Renal Insuffiency? No UTI? No Stones? No BPH? No GB Disease: Yes Nephritic Syndrome? No Asplenia? No Hepatitis? No Sickle Cell Disease? No Arthritis? No Migraines? No Cataracts? No Glaucoma? No MRSA? Yes HIV? No TB? No Anxiety? No Depression? Yes Cancer? No More? Yes Additional hx: LOWER BACK PAIN Immunization HX DT/Tetanus Unknown Flu Refused Pneumonia Refuses Surgical Hx Previous Surgery?Y Tonsils CHOLECYSTECTOMY WISDOM TEETH Family History Family HX Diabetes Yes CAD No Hypertension Yes Hyperlipidemia No Cancer No TB No Social History Smoking Hx Smoker: Current Every Day Smoker Tobacco: Yes Type Cigarettes Packs/day < 1 Pack Alcohol Alcohol: No Review of Systems All Other Systems Reviewed and Negative Constitutional see HPI Eyes denies drainage ENT see HPI, nose discharge, nose congestion, throat pain. denies: throat swelling. Respiratory see HPI Cardiovascular denies chest pain Gastrointestinal denies abdominal pain, denies nausea Genitourinary denies: dysuria, frequency. Musculoskeletal see HPI Skin denies rash Psychiatric/Neurological headache, denies other (dizziness) Physical Exam Vital Signs Vital Signs Date Time Temp Pulse Resp B/P Pulse O2 O2 Flow FiO2 Ox Delivery Rate 05/07 185 98.4 105 20 142/98 98 05/07 174 98.4 105 20 142/98 98 General Appearance normal appearance, no apparent distress Ear, Nose, Throat normal ENT inspection (x/ rhinorrhea) Neck non-tender, supple Respiratory Status Yes: trachea midline, chest symmetrical, non productive cough. No: respiratory distress, use of accessory muscles, pain on inspiration, pain on expiration. Lung Sounds anterior: lungs clear. posterior: lungs clear. bilateral: lungs clear. Cardiovascular no peripheral edema, no murmur, tachycardia Gastrointestinal normal bowel sounds, non tender, soft, no guarding, no rebound Neurologic alert, oriented x 3 Skin normal color, warm/dry Lymphatic no adenopathy Medical Decision Making LABS/Meds/Orders Pt receiving controlled substance in ED? No Results/Orders Laboratory Tests 05/07/176: Influenza Type A Ag DETECTED H, Influenza Type B Ag DETECTED H Orders Procedure Date/time Status [facility] FLU A,B 05/07 1746 Complete Departure Departure Time of Disposition 1846 Disposition [place] Home or Self Care(routine) Clinical Impression Primary Impression: Influenza A (H1N1) Condition STABLE Referrals Vipin ROY,Eder Le (Family) IMMEDIATELY for new or worsening symptoms OR no noticeable improvement over the next 72 hours. 911 for difficulty breathing Patient Instructions DI for Influenza -- Adult Additional Instructions * Start Tamiflu today if you are going to take it. Discussed risks and possible benefits. * Lots of rest * Increase fluids, water, gatorade, powerade, pedialyte if /toddler/child * Monitor Temp. Tylenol every 4 hours as needed no more then 5 times a day or 4000mg in 24 hours and/or ibuprofen every 6 hours as needed no more then 3200mg in 24 hours (as long as your primary care doctor has told you that it is ok to take both) for fever/aches/pain. ER if fever no less than 101 despite tylenol and Ibuprofen * You (or your child) are contagious until no fever, aches, chills x 24 hours without medication for symptoms. Do NOT return to work sooner. Discharge Counseling Counseled pt/family regarding diagnosis, test results, medications/RX, home care, follow up needs Prescriptions Current Visit Scripts Oseltamivir Phosphate (Tamiflu 75MG Capsule) 75 MG PO BID #10 CAP D-METHORPHAN HB/P-EPD HCL/BPM (Bromfed Dm Cough Syrup) 10 ML PO QIDP PRN cough #240 ML at 5633
[2017-05-07] MEDS ORDERED: BROMFED DM COU118 ML PO (18:49)
[2017-05-07] MEDS ORDERED: TAMIFLU 75MG CA75 MG PO (18:49)
[2017-05-07 18:50] VITALS: BP 142/98
== END 2017-05-07 18:52 | disposition home or self-care (01) ==
LOC: UTC 17:27
DX: J10.1 Influenza due to other identified influenza virus with other respiratory manifestations (principal); F17.210 Nicotine dependence, cigarettes, uncomplicated

== ENCOUNTER → 2017-05-10 | Outpatient (CLI) | payer MEDICAID ==
[~2017-05-10] MED LIST changes: +ADIPEX-P37.5 M2 PO; +BROMFED DM COU118 ML PO; +TAMIFLU 75MG CA75 MG PO
== END ==
LOC: LAB 13:10
DX: N39.0 Urinary tract infection, site not specified (principal)